=== PATIENT | female | born 1945 | race Caucasian/White ===

== ENCOUNTER → 2023-11-15 09:18 | Outpatient (REF) | payer MEDICARE, BC, SELFPAY ==
[2023-11-15 12:07] LABS: HDL Cholesterol 52 mg/dl; LDL Cholesterol, Calculated 155 mg/dl; Total Cholesterol 240 mg/dl (50-199); Triglyceride 166 mg/dl (10-149); Very Low Density Lipoprotein 33 mg/dl (0-30)
== END ==
LOC: HWLAB 09:18
PROVIDERS: ATTENDING PHYSICIAN Internal Medicine Cardiovascular Disease; FAMILY PHYSICIAN Emergency Medicine
DX: I25.10 Atherosclerotic heart disease of native coronary artery without angina pectoris (principal); E78.2 Mixed hyperlipidemia
CPT/HCPCS: 36415; 80061

== ENCOUNTER → 2024-01-01 09:13 | Outpatient (REF) | payer MEDICARE, BC, SELFPAY ==
[2024-01-01 12:31] LABS: % Basophils 1.1 % (0-2); % Immature Granulocytes 0.1 % (0-0.5); % Lymphocytes 31.5 % (20.5-51.1); % Monocytes 8.2 % (1.7-9.3); % Neutrophils 57.1 % (42.2-75.2); Absolute Basophils 0.1 10^3/uL (0-0.2); Absolute Eosinophils 0.1 10^3/uL (0-0.7); Absolute Lymphocytes 2.2 10^3/uL (1.2-3.4); Absolute Monocytes 0.6 10^3/uL (0.1-0.6); Hematocrit 40.4 % (37.0-47.0); Hemoglobin 13.1 g/dL (12.0-16.0); Mean Corp Hgb Conc. 32.4 g/dL (33.0-37.0); Mean Corpuscular Hgb 27.7 pg (27.0-31.0); Mean Corpuscular Volume 85.4 fL (81.0-99.0); Mean Platelet Volume 9.7 fL (7.4-10.4); Nucleated Red Blood Cells % 0 %; Platelet Count 288 10^3/uL (130-400); Red Blood Cell Count 4.73 10^6/uL (4.20-5.40); Red Cell Dist. Width 14.4 % (11.5-14.5)
[2024-01-01 13:29] LABS: ALT (SGPT) 35 U/L (0-35); AST (SGOT) 32 U/L (14-36); Albumin 4.2 g/dl (3.5-5.0); Alkaline Phosphatase 104 U/L (38-126); Blood Urea Nitrogen 13 mg/dl (7-17); Calcium 9.1 mg/dl (8.4-10.2); Carbon Dioxide 27 mmol/L (22-30); Chloride 105 mmol/L (98-107); Glucose 113 mg/dl (70-99); Potassium 4.4 mmol/L (3.5-5.1); Sodium 136 mmol/L (135-145); Total Bilirubin 0.6 mg/dl (0.2-1.3); eGFR > 60.00
[2024-01-01 13:54] LABS: TSH Reflex To Free T4 3.26 uIU/ml (0.47-4.68)
[2024-01-01 13:56] LABS: Glycohemoglobin (HgbA1c) 6.4 % (4.0-5.6)
== END ==
LOC: HWLAB 09:13
PROVIDERS: ATTENDING PHYSICIAN Emergency Medicine
DX: G47.33 Obstructive sleep apnea (adult) (pediatric) (principal); E11.69 Type 2 diabetes mellitus with other specified complication; E66.01 Morbid (severe) obesity due to excess calories; E78.2 Mixed hyperlipidemia; K76.0 Fatty (change of) liver, not elsewhere classified
CPT/HCPCS: 36415; 80053; 83036; 84443; 85025

== ENCOUNTER 2024-01-10 20:33 | Inpatient (IN) | payer MEDICARE, BC, SELFPAY ==
[2024-01-10 16:48] VITALS: BP 160/129
[2024-01-10 17:50] VITALS: BP 154/85
[2024-01-10 17:59] VITALS: BMI 55.1
[2024-01-10 18:13] LABS: % Basophils 0.7 % (0-2); % Eosinophils 0.6 % (0-6); % Immature Granulocytes 0.3 % (0-0.5); % Lymphocytes 19.2 % (20.5-51.1); % Monocytes 6.5 % (1.7-9.3); % Neutrophils 72.7 % (42.2-75.2); Absolute Basophils 0.1 10^3/uL (0-0.2); Absolute Eosinophils 0.1 10^3/uL (0-0.7); Absolute Monocytes 0.7 10^3/uL (0.1-0.6); Absolute Neutrophils 7.6 10^3/uL (1.4-6.5); Hemoglobin 13.6 g/dL (12.0-16.0); Mean Corp Hgb Conc. 32.4 g/dL (33.0-37.0); Mean Corpuscular Hgb 27.8 pg (27.0-31.0); Mean Corpuscular Volume 85.7 fL (81.0-99.0); Nucleated Red Blood Cells % 0 %; Platelet Count 307 10^3/uL (130-400); White Blood Cell Count 10.4 10^3/uL (4.8-10.8)
[2024-01-10 18:24] LABS: Lactic Acid 2.4 mmol/L (0.7-2.0)
[2024-01-10 18:26] LABS: ALT (SGPT) 31 U/L (0-35); AST (SGOT) 27 U/L (14-36); Albumin 4.5 g/dl (3.5-5.0); Alkaline Phosphatase 111 U/L (38-126); Blood Urea Nitrogen 11 mg/dl (7-17); Calcium 9.7 mg/dl (8.4-10.2); Carbon Dioxide 27 mmol/L (22-30); Chloride 100 mmol/L (98-107); Estimated Creatinine Clearance 75 ml/min; Glucose 154 mg/dl (70-99); Potassium 4.1 mmol/L (3.5-5.1); Sodium 137 mmol/L (135-145); Total Bilirubin 0.4 mg/dl (0.2-1.3); Total Protein 7.4 g/dl (6.3-8.2); eGFR > 60.00
--- NOTE | 2024-01-10 18:34 | ED.GENMED ---
History of Present Illness
General
Chief Complaint: Abdominal Pain
Source: patient
Exam Limitations: none
Time Seen by Provider: 01/10/24 18:27
Nursing documentation reviewed up to this point in time: agreed with
Travel History
Have you had any contact with someone who has COVID-19?: No
Do you have any symptoms of coronavirus? Fever > 100 degrees, chills, cough, shortness of breath, sore throat, loss of taste or smell, muscle aches, or headache?: No
History of Present Illness
History of Present Illness:
This patient presents to ED secondary to intermittent nonbloody diarrhea for the past 10 days along with left-sided abdominal pain with nausea sensation over the past 3 days. Patient had an outpatient CT abdomen pelvis done today which revealed
perforated diverticulum. Abdominal pain described as sharp, left-sided, without any alleviating or exacerbating factors. Patient denies fever. Denies vomiting. Denies previous history of similar symptoms.
Past History
Past History
ED Past Medical History: HTN, NIDDM and Other (endometrial cancer)
ED Past Surgical History: Other (hysterectomy)
Social History
Tobacco: Non-smoker
Alcohol: Occasional
Drug: None
Personal:
Living: with family
Employment: Employed
Review of Systems
Review of Systems
Allergies reviewed?: Yes
All Other Systems: ROS reviewed and negative except as documented in HPI and ROS
Constitutional: Denies fever
EENT: Reports no symptoms
Respiratory: Reports no symptoms
ABD/GI: Reports abdominal pain, nausea and diarrhea; Denies vomiting
: Reports no symptoms
Musculoskeletal: Reports no symptoms
Skin: Reports no symptoms
Neurological: Reports no symptoms
Phy Exam
Physical Exam
Physical Exam:
Physical Exam
General: mild painful distress, not acutely ill. afebrile
Head: nc/at. eomi
Neck: supple. no meningeal signs.
Heart: tachycardic, no murmur. equal radial pulses.
Lungs: no acute respiratory distress. clear bilaterally
Abdomen: normal bowel sounds. mild LLQ tenderness to palpation, without rebound/guarding.
Neuro: alert and oriented. no focal neurological deficits
Skin: no rash
Psychiatric: well kept. interactive and cooperative
Extremities: no edema. no calf tenderness.
Course
Orders/Labs/Results
Orders:
Orders
01/10/24 Dinner
NPO
Allow oral meds: Yes
Allow clear liquids: No
NPO with Ice Chips: No
01/10/24 18:01
Electrocardiogram (*1) Urgent
Reason for Study: Tachycardia
EKG- Treatment ONCE
01/10/24 18:03
CMP [Comprehensive Metabolic Panel] Urgent
Complete Blood Count/With Diff Urgent
Lactate Level [Lactic Acid] Urgent
Blood Culture Q30M
LORA Source: Blood/Venous
Specimen Description:
01/10/24 18:38
Piperacillin/Tazo 3.375 Gram [Zosyn] 3.375 gram in 50 ml IV NOW
01/10/24 18:39
0.9% Sodium Chloride 1000 ml [Nss] 1,000 ml IV BOLUS
Ondansetron Injectable [Zofran] 4 mg IV NOW STA
01/10/24 19:45
Admit/Transfer Patient As Directed
Co-Sign Provider:
Level of Care: Inpatient admission
Assign to:: Medical/Surgical
Physician / Group: malik
Diagnosis: perforated diverticulitis
Reason for Hospitalization: perforated diverticulitis
Expected length of stay greater than two midnights?: Yes
ELOS- Estimated Length of Stay in days: 2
I certify the patient meets the requirements for IP care: Yes
Code Status As Directed
Resuscitation Status: Full Code
01/10/24 21:41
0.9% Sodium Chloride 1000 ml [Nss] 1,000 ml IV 100 mls/hr
Albuterol [ProAIR HFA INHALER] 2 puff INH R Q4HPRN PRN
Dextrose 50%-Water [Dextrose 50% Syringe] 12.5 grams IV [id number] PRN
Glucagon [GlucaGen] 1 mg IM PRN PRN
Guaifenesin [Mucinex] 600 mg PO Q48H
HYDROmorphone [Dilaudid] 0.5 mg IV Q4HPRN PRN
Losartan [Cozaar] 50 mg PO BID
Ondansetron Injectable [Zofran] 4 mg IV Q6HPRN PRN
Polyethylene Glycol Powder [Miralax] 17 grams PO DAILYPRN PRN
01/10/24 21:41
ColoRectal Surgery Consult Routine
Consulting Provider: Edward Bender
Was physician already notified: Yes
Activity As Directed
Activity Level: As Tolerated
Bedside Glucose Monitoring As Directed
Frequency: AC&HS
Comment: Change to q6h if pt on TPN, tube feeding or not eating
Pneumatic Compression Sleeves As Directed
Type: Knee high
Vital Signs As Directed
Frequency: Per unit guidelines
DX Deep Vein Thrombosis Video Routine
01/10/24 22:00
Famotidine [Pepcid] 40 mg PO HS
01/10/24 22:03
Blood Culture Q30M
LORA Source: Blood/Venous
Specimen Description:
01/11/24 00:00
Piperacillin/Tazo 3.375 Gram [Zosyn] 3.375 gram in 50 ml IV Q6H
01/11/24 06:00
Complete Blood Count/With Diff IN AM
Comprehensive Metabolic Panel IN AM
01/11/24 07:30
Insulin Aspart Corrective Low [Novolog Flexpen-Low Resistance] See Protocol SC AC
01/11/24 08:00
Calcium Carbonate/Vitamin D3 [Oscal 500 + D] 500 mg PO DAILY
Calcium Polycarbophil [Fibercon] 625 mg PO DAILY
Cholecalciferol (Vitamin D3) [VITAMIN D3 (cholecalciferol)] 10 mcg PO DAILY
Cholecalciferol (Vitamin D3) [VITAMIN D3 (cholecalciferol)] 25 mcg PO DAILY
Cyanocobalamin [Vitamin B-12] 500 mcg PO DAILY
Docusate Sodium [Colace] 100 mg PO DAILY
Lidocaine [Lidocaine 4% Patch] 1 patch TOPICAL DAILY
Metoprolol Xl [Toprol Xl] 50 mg PO DAILY
Multivitamin [Theragran] 1 tablet PO DAILY
Pyridoxine [Vitamin B-6] 100 mg PO MoWeFr@0800
Tolterodine Extended Release [Detrol LA] 4 mg PO DAILY
01/11/24 18:00
Pantoprazole [Protonix] 40 mg PO QPM
01/14/24 08:00
Ascorbic Acid [Vitamin C] 500 mg PO MoWe@0800
Abnormal Lab Results
01/10/24
18:03
MCHC 32.4 L g/dL
(33.0-37.0)
Absolute Neuts (auto) 7.6 H 10^3/uL
(1.4-6.5)
Absolute Monos (auto) 0.7 H 10^3/uL
(0.1-0.6)
Lymphocytes % 19.2 L %
(20.5-51.1)
Glucose 154 H mg/dl
(70-99)
Lactic Acid 2.4 H mmol/L
(0.7-2.0)
01/10/24 18:03
01/10/24 18:03
Vital Signs
Initial and Last Documented VS:
Initial Vital Signs
Temp Pulse Resp BP Pulse Ox
98.9 F 120 18 160/129 95
01/10/24 16:48 01/10/24 16:48 01/10/24 16:48 01/10/24 16:48 01/10/24 16:48
Last Documented Vital Signs
Temp Pulse Resp BP Pulse Ox
98.2 F 96 18 139/62 96
01/10/24 23:55 01/10/24 23:55 01/10/24 23:55 01/10/24 23:55 01/10/24 23:55
MDM/Problems Addressed
MDM/Problems Addressed:
CT report reviewed and discussed with Dr. Bender, on-call colorectal surgeon.
Patient given IV fluids and Zosyn. Patient will be admitted for further evaluation and treatment.
*Critical Care Note
Total Time (30-74mins, 75-104mins- exclusive of procedures): Not Applicable
ED Attending Note
-
Portions of this chart may have been created with voice recognition software.� Occasional wrong word or��sound alike� substitutions may have occurred due to the inherent limitations of voice recognition software.
Discharge Plan
Departure
Patient Disposition: Admit
Date of Disposition: 01/10/24
Time of Disposition: 19:21
Presentation/result/management discussed w/ accepting MD/DO: Hospitalist
Discharge Problem:
Diverticulitis of colon with perforation
Interventions
Interventions:
*Risk Screen - Suicide Last Done: 01/10/24 16:48
*General Assessment Last Done: 01/10/24 16:48
*Neglect/Abuse Screening Last Done: 01/10/24 16:48
ED- Fall Risk Assessment Last Done: 01/10/24 18:22
*ED COVID-19 Vaccine History Last Done: 01/10/24 16:48
*Nursing Disposition Last Done: 01/10/24 22:05
CM-Qvivza-Jawwxhgzpp Assessment Last Done: 01/10/24 18:22
Discharge Date and Time
Discharge Date/Time: 01/10/24 22:06
[2024-01-10] MEDS: ZOFRAN 4 MG IV ×2 (18:47→23:20)
[2024-01-10] MEDS: ZOSYN 50 IV ×2 (18:47→23:17)
[2024-01-10] MEDS: NSS 1000 IV ×2 (18:51→22:27)
--- NOTE | 2024-01-10 19:52 | HPS.HSE ---
Family Physician
-
Family Physician: Crystal Saunders MD
Chief Complaint
-
abdominal pain
History of Present Illness
78-year-old female past medical history of COPD, obstructive sleep apnea, hypertension, diabetes, hyperlipidemia, endometrial cancer, chronic lower extremity edema, GERD, overactive bladder, obesity, presenting with intermittent nonbloody diarrhea
for the past 14 days with left-sided abdominal pain with nausea and dry heaving over the past 3 days. She started taking Repatha injection 6 weeks ago and started having diarrhea after each injection. Around 2 weeks ago she started having
intermittent diarrhea. Diarrhea is described as watery continue mucus without blood.
Patient had outpatient CT scan abdomen pelvis today which showed perforated diverticulum. Abdominal pain described as sharp and left-sided without any relieving factors. Patient denies fevers.
Patient with chronic shortness of breath and no chest pain.
She does not smoke or drink alcohol.
Medical History
Past Medical History
Past Medical History: Reports Other ( COPD, obstructive sleep apnea, hypertension, diabetes, hyperlipidemia, endometrial cancer, chronic lower extremity edema, GERD, overactive bladder, obesity,)
Past Surgical History: Reports None
Social History
Tobacco: Non-smoker
Alcohol: None
Drug: None
Family History
Family History: Not pertinent
Allergies / Home Medications
Allergies reflects when Allergies were last updated in [facility].
Home Medications with original date entered in [facility]
Allergy/Medication List:
Allergies
Allergy/AdvReac Type Severity Reaction Status Date / Time
acetaminophen [From Tylenol] Allergy Unknown Verified 12/31/22 19:18
aspartame Allergy Unknown Verified 12/31/22 19:18
aspirin Allergy gi Verified 12/31/22 19:18
discomfort
betamethasone dipropionate Allergy Rash Verified 12/31/22 19:18
[From Lotrisone]
cefuroxime Allergy Itching Verified 12/31/22 19:18
celecoxib Allergy Nausea / Verified 12/31/22 19:18
Vomiting
ciprofloxacin Allergy Nausea / Verified 12/31/22 19:18
Vomiting
clotrimazole [From Lotrisone] Allergy Rash Verified 12/31/22 19:18
doxycycline Allergy Unknown Verified 12/31/22 19:18
duloxetine [From Cymbalta] Allergy Unknown Verified 12/31/22 19:18
fluconazole Allergy Unknown Verified 12/31/22 19:18
hydrocodone [From Vicodin] Allergy Unknown Verified 12/31/22 19:18
prednisone Allergy Unknown Verified 12/31/22 19:18
rofecoxib [From Vioxx] Allergy tinnitus Verified 12/31/22 19:18
Adojwro-SUN-WqZ Reductase Allergy muscle Verified 12/31/22 19:18
Inhibitor spasms
[Qewbfyo-Cjg-Hrk Reductase
Inhibitor]
sulfamethoxazole Allergy Unknown Verified 12/31/22 19:18
[From Bactrim]
trimethoprim [From Bactrim] Allergy Unknown Verified 12/31/22 19:18
ANESTHESIA MEDICATIONS Allergy Unknown Uncoded 12/31/22 19:18
Home Medications
alpha lipoic acid 100 mg capsule 200 mg PO MOTH Supplement 10/13/13
fluticasone propionate 50 mcg/actuation nasal spray,suspension 2 spray intranasal DAILY PRN alleriges 10/13/13
ascorbic acid (vitamin C) 500 mg tablet (Vitamin C) 500 mg PO MOWE Supplement 12/31/22
calcium carbonate 500 mg-vitamin D3 5 mcg (200 unit) tablet (Calcium 500 + D) 1 tab PO DAILY Supplement 12/31/22
calcium polycarbophil 625 mg tablet (Fiber (calcium polycarbophil)) 625 mg PO DAILY Supplement 12/31/22
cholecalciferol (vitamin D3) 10 mcg (400 unit) tablet (Vitamin D3) 10 mcg PO DAILY take with 25mcg 12/31/22
cholecalciferol (vitamin D3) 25 mcg (1,000 unit) tablet (Vitamin D3) 25 mcg PO DAILY take with 25mcg 12/31/22
cyanocobalamin (vitamin B-12) 500 mcg tablet (Vitamin B-12) 500 mcg PO DAILY Supplement 12/31/22
docusate sodium 100 mg capsule (Col-Rite) 100 mg PO DAILY Constipation 12/31/22
lidocaine 4 % topical patch 1 patch topical DAILY middle lower back 12/31/22
metoprolol succinate 50 mg tablet,extended release 24 hr (Toprol XL) 50 mg PO DAILY Blood pressure 12/31/22
omega-3 acid ethyl esters 1 gram capsule (Lovaza) 1 cap PO DAILY Supplement 12/31/22
omeprazole 20 mg capsule,delayed release 20 mg PO QPM Gastrointestinal issue 12/31/22
pyridoxine (vitamin B6) 100 mg tablet (Vitamin B-6) 100 mg PO MOWEFR Supplement 12/31/22
vibegron 75 mg tablet (Gemtesa) 75 mg PO DAILY Urinary issue 12/31/22
coQ10 (ubiquinol) 100 mg capsule 100 mg PO DAILY Supplement 01/01/23
therapeutic multivitamin 1 tab PO DAILY Supplement 01/01/23
albuterol sulfate 90 mcg/actuation aerosol inhaler 2 puff inhalation R Q4HPRN PRN sob #6.7 grams 01/06/23
famotidine 40 mg tablet 40 mg PO HS #30 tabs 01/06/23
losartan 50 mg tablet 50 mg PO BID #60 tabs 01/06/23
Reclast 1 dose IV [id number] 01/10/24
biotin 10,000 mcg chewable tablet (Hair, Skin and Nails (biotin)) 10,000 mcg PO DAILY 01/10/24
guaifenesin 600 mg tablet, extended release 12 hr (Mucinex) 600 mg PO Q48H@2000 01/10/24
polyethylene glycol 3350 17 gram oral powder packet 17 g PO DAILYPRN PRN constipation 01/10/24
Review of Systems
-
History Source: Patient
A 12 point ROS was completed and negative except as noted: Yes
Constitutional: Reports No Symptoms
EENT: Reports No Symptoms
Respiratory: Reports No Symptoms
Cardiac: Reports No Symptoms
Abdomen/GI: Reports See HPI
: Reports No Symptoms
Musculoskeletal: Reports No Symptoms
Skin: Reports No Symptoms
Neurological: Reports No Symptoms
Endocrine: Reports No Symptoms
Hematologic/Lymphatic: Reports No Symptoms
Psych: Reports No Symptoms
Physical Exam
Vital Signs
Vital Signs
Temp Pulse Resp BP Pulse Ox
98.9 F 112 17 154/85 95
01/10/24 16:48 01/10/24 18:15 01/10/24 18:15 01/10/24 17:50 01/10/24 18:22
Physical Exam
General: Well Developed, Well Nourished and No Apparent Distress
HEENT: NormoCephalic, Moist mucous membranes and Atraumatic
Respiratory: Clear
Cardiac: S1/S2 and Regular Rhythm; No Murmur or Rub
GI: Soft, Non Distended, Normal Bowel Sounds and Tender (LLQ ); No Organomegaly
Rectal: Deferred by Provider
Musculoskeletal: No Clubbing, No Cyanosis and No Edema
Skin: No Rash
Neuro: Nonfocal/grossly intact
Laboratory Results
-
01/10/24 18:03
01/10/24 18:03
Laboratory Results
Lactic Acid 2.4 mmol/L (0.7-2.0) H 01/10/24 18:03
Total Bilirubin 0.4 mg/dl (0.2-1.3) 01/10/24 18:03
AST 27 U/L (14-36) 01/10/24 18:03
ALT 31 U/L (0-35) 01/10/24 18:03
Alkaline Phosphatase 111 U/L (38-126) 01/10/24 18:03
Data Reviewed
-
Lab Data: Labs Reviewed by me
Old Records: Reviewed
Impression/Plan
-
IMPRESSION:
PLAN:
# Perforated diverticulitis
-CT abdomen shows free intraperitoneal air consistent with focal area of perforated diverticulitis
-N.p.o.
-IV fluids
-Check blood cultures
-Zosyn
-Colorectal surgery to evaluate
COPD
-Continue inhalers
Obstructive sleep apnea
Essential hypertension
-Continue losartan, metoprolol
Type 2 diabetes
-Insulin sliding scale
Hyperlipidemia
-on reclast
History of endometrial cancer
Chronic lower extremity edema
GERD
-Continue famotidine, omeprazole
Overactive bladder
-Continue Gemtesa
Obesity
Constipation
-Continue bowel regimen
Full code
DVT prophylaxis�SCDs
N.p.o.
--- NOTE | 2024-01-10 20:21 | CON.CRS ---
Consultation
-
Performing Provider: Edward Bender MD
Reason for Consultation: abdominal pain
Medical History
-
History of Present Illness:
78-year-old female with PMH of endometrial cancer (s/p hysterectomy 2008), COPD, HTN, HLD, diabetes (controlled with diet), MINOR (on CPAP) OAB, GERD who presents with 3 to 4 days of mild intermittent left-sided abdominal pain. She states that she
started a new medication several weeks ago for her HLD called Repatha. She has been getting diarrhea as a side effect with each injection. Over the last 1 to 2 weeks the diarrhea has gotten worse. 1 week ago, she did have an episode of dry
heaving, but none since. 3 to 4 days ago, she started having left-sided abdominal pain that was intermittent. The pain ranges from a 3-5 out of 10. Sometimes the pain goes away completely, but at its worst was a 9 out of 10 when she was having a
BM. She was also having bilateral lower back pain and states that she has history of spinal stenosis. She denies any fevers or chest pain. Denies any urinary symptoms (has urinary incontinence at baseline). She chronically has SOB. She has been
mildly nauseous since the CT scan, but denies nausea prior. Her last colonoscopy was before 2014. She does not remember the results, but believes she was told to repeat it in 10 years.
In the ED, she was afebrile, her heart rate was in the 110s to 120s and hypertensive. Her WBC was 10.4, lactate 2.4, and creatinine 0.9. A CT scan was done which was read as concerning for perforated diverticulitis. However, the images were
reviewed with Dr. 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 There is no associated stranding or free fluid.
Past Medical History
Past Medical History: Other (per HPI)
Past Surgical History: Other (Hysterectomy 2008, temporal artery biopsy 2018, cataract surgery, mouth biopsy)
Social History
Tobacco: Non-Smoker
Alcohol: None
Drug: None
Personal:
Living: With Family
Family History
Family History: Reviewed & Not Pertinent
Allergies / Home Medications
Allergy/AdvReac Type Severity Reaction Status Date / Time
acetaminophen [From Tylenol] Allergy Unknown Verified 12/31/22 19:18
aspartame Allergy Unknown Verified 12/31/22 19:18
aspirin Allergy gi Verified 12/31/22 19:18
discomfort
betamethasone dipropionate Allergy Rash Verified 12/31/22 19:18
[From Lotrisone]
cefuroxime Allergy Itching Verified 12/31/22 19:18
celecoxib Allergy Nausea / Verified 12/31/22 19:18
Vomiting
ciprofloxacin Allergy Nausea / Verified 12/31/22 19:18
Vomiting
clotrimazole [From Lotrisone] Allergy Rash Verified 12/31/22 19:18
doxycycline Allergy Unknown Verified 12/31/22 19:18
duloxetine [From Cymbalta] Allergy Unknown Verified 12/31/22 19:18
fluconazole Allergy Unknown Verified 12/31/22 19:18
hydrocodone [From Vicodin] Allergy Unknown Verified 12/31/22 19:18
prednisone Allergy Unknown Verified 12/31/22 19:18
rofecoxib [From Vioxx] Allergy tinnitus Verified 12/31/22 19:18
Cpenmxm-CIE-EqM Reductase Allergy muscle Verified 12/31/22 19:18
Inhibitor spasms
[Cghfjsw-Shv-Myl Reductase
Inhibitor]
sulfamethoxazole Allergy Unknown Verified 12/31/22 19:18
[From Bactrim]
trimethoprim [From Bactrim] Allergy Unknown Verified 12/31/22 19:18
ANESTHESIA MEDICATIONS Allergy Unknown Uncoded 12/31/22 19:18
�Medication �Instructions �Recorded �Confirmed �Type
alpha lipoic acid 100 mg capsule 200 mg PO MOTH Supplement 10/13/13 01/10/24 History
fluticasone propionate 50 2 spray intranasal DAILY PRN 10/13/13 01/10/24 History
mcg/actuation nasal alleriges
spray,suspension
ascorbic acid (vitamin C) 500 mg 500 mg PO MOWE Supplement 12/31/22 01/10/24 History
tablet (Vitamin C)
calcium carbonate 500 mg-vitamin 1 tab PO DAILY Supplement 12/31/22 01/10/24 History
D3 5 mcg (200 unit) tablet
(Calcium 500 + D)
calcium polycarbophil 625 mg 625 mg PO DAILY Supplement 12/31/22 01/10/24 History
tablet (Fiber (calcium
polycarbophil))
cholecalciferol (vitamin D3) 10 10 mcg PO DAILY take with 25mcg 12/31/22 01/10/24 History
mcg (400 unit) tablet (Vitamin D3)
cholecalciferol (vitamin D3) 25 25 mcg PO DAILY take with 25mcg 12/31/22 01/10/24 History
mcg (1,000 unit) tablet (Vitamin
D3)
cyanocobalamin (vitamin B-12) 500 500 mcg PO DAILY Supplement 12/31/22 01/10/24 History
mcg tablet (Vitamin B-12)
docusate sodium 100 mg capsule 100 mg PO DAILY Constipation 12/31/22 01/10/24 History
(Col-Rite)
lidocaine 4 % topical patch 1 patch topical DAILY middle lower 12/31/22 01/10/24 History
back
metoprolol succinate 50 mg 50 mg PO DAILY Blood pressure 12/31/22 01/10/24 History
tablet,extended release 24 hr
(Toprol XL)
omega-3 acid ethyl esters 1 gram 1 cap PO DAILY Supplement 12/31/22 01/10/24 History
capsule (Lovaza)
omeprazole 20 mg capsule,delayed 20 mg PO QPM Gastrointestinal issue 12/31/22 01/10/24 History
release
pyridoxine (vitamin B6) 100 mg 100 mg PO MOWEFR Supplement 12/31/22 01/10/24 History
tablet (Vitamin B-6)
vibegron 75 mg tablet (Gemtesa) 75 mg PO DAILY Urinary issue 12/31/22 01/10/24 History
coQ10 (ubiquinol) 100 mg capsule 100 mg PO DAILY Supplement 01/01/23 01/10/24 History
therapeutic multivitamin 1 tab PO DAILY Supplement 01/01/23 01/10/24 History
albuterol sulfate 90 mcg/actuation 2 puff inhalation R Q4HPRN PRN sob 01/06/23 01/10/24 Rx
aerosol inhaler #6.7 grams
famotidine 40 mg tablet 40 mg PO HS #30 tabs 01/06/23 01/10/24 Rx
losartan 50 mg tablet 50 mg PO BID #60 tabs 01/06/23 01/10/24 Rx
Reclast 1 dose IV [id number] 01/10/24 01/10/24 History
biotin 10,000 mcg chewable tablet 10,000 mcg PO DAILY 01/10/24 01/10/24 History
(Hair, Skin and Nails (biotin))
guaifenesin 600 mg tablet, 600 mg PO Q48H@199901/10/24 01/10/24 History
extended release 12 hr (Mucinex)
polyethylene glycol 3350 17 gram 17 g PO DAILYPRN PRN constipation 01/10/24 01/10/24 History
oral powder packet
Review of Systems
-
All other systems: Negative unless noted
A 10 point review of systems was completed, and was negative except as per HPI.
Physical Exam
Vital Signs
Temp 98.9 F 01/10/24 16:48
Pulse 112 01/10/24 18:15
Resp Rate 17 01/10/24 18:15
Blood pressure 154/85 01/10/24 17:50
SaO2 95 01/10/24 18:22
01/09/24 01/10/24 01/11/24
06:59 06:59 06:59
Actual Weight 145.4 kg
Body Mass Index (BMI) 55.1
Lab Results / Allergies
01/10/24 18:03
01/10/24 18:03
WBC 10.4 10^3/uL (4.8-10.8) 01/10/24 18:03
Hgb 13.6 g/dL (12.0-16.0) 01/10/24 18:03
Hct 42.0 % (37.0-47.0) 01/10/24 18:03
Plt Count 307 10^3/uL (130-400) 01/10/24 18:03
Abs Immat Gran (auto) 0.0 10^3/uL (0-0.05) 01/10/24 18:03
Neutrophils % 72.7 % (42.2-75.2) 01/10/24 18:03
Allergy/AdvReac Type Severity Reaction Status Date / Time
acetaminophen [From Tylenol] Allergy Unknown Verified 12/31/22 19:18
aspartame Allergy Unknown Verified 12/31/22 19:18
aspirin Allergy gi Verified 12/31/22 19:18
discomfort
betamethasone dipropionate Allergy Rash Verified 12/31/22 19:18
[From Lotrisone]
cefuroxime Allergy Itching Verified 12/31/22 19:18
celecoxib Allergy Nausea / Verified 12/31/22 19:18
Vomiting
ciprofloxacin Allergy Nausea / Verified 12/31/22 19:18
Vomiting
clotrimazole [From Lotrisone] Allergy Rash Verified 12/31/22 19:18
doxycycline Allergy Unknown Verified 12/31/22 19:18
duloxetine [From Cymbalta] Allergy Unknown Verified 12/31/22 19:18
fluconazole Allergy Unknown Verified 12/31/22 19:18
hydrocodone [From Vicodin] Allergy Unknown Verified 12/31/22 19:18
prednisone Allergy Unknown Verified 12/31/22 19:18
rofecoxib [From Vioxx] Allergy tinnitus Verified 12/31/22 19:18
Bqxyccn-FXW-OpC Reductase Allergy muscle Verified 12/31/22 19:18
Inhibitor spasms
[[place]-Rhq-Zpd Reductase
Inhibitor]
sulfamethoxazole Allergy Unknown Verified 12/31/22 19:18
[From Bactrim]
trimethoprim [From Bactrim] Allergy Unknown Verified 12/31/22 19:18
ANESTHESIA MEDICATIONS Allergy Unknown Uncoded 12/31/22 19:18
Physical Exam
General: Well Developed, No Apparent Distress and Good Appetite
HEENT: Normocephalic and Atraumatic
Respiratory: Non Labored Respirations
GI: Soft, Non Distended and Tender (Minimally to mildly tender in the left epigastric region (states the tenderness is a 3 out of 10 with palpation, 0 out of 10 without palpation), no tenderness elsewhere, no rebound or guarding)
Skin: Warm and Dry
Neuro: Awake, AO x 3 and Nonfocal/Grossly Intact
Data Reviewed
-
CT Scan: Image Personally Visualized and interpreted, Discussed with Physician (Dr. Javed), Discussed with Patient and Discussed with Family
Labs: Labs Reviewed by me, Discussed with Patient and Discussed with Family
Assessment / Plan
-
78-year-old female with PMH of endometrial CA (s/p hysterectomy), COPD (chronically short of breath), HTN, HLD, diabetes (controlled with diet), MINOR (on CPAP) OAB, GERD who presents with 3 to 4 days of mild intermittent left-sided abdominal pain in
setting of 6 weeks of diarrhea a/w new medication, repatha. Her last colonoscopy was before 2014. She does not remember the results, but believes she was told to repeat it in 10 years. In the ED, she was afebrile, her heart rate was in the 110s to
120s and hypertensive. Her WBC was 10.4, lactate 2.4, and creatinine 0.9. A CT scan was done which was read as concerning for perforated diverticulitis. However, the images were reviewed with Dr. Brooks Javed, and he reported a few flecks of free
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 There is no associated stranding or free fluid.
�Initially, her CT scan was read as perforated diverticulitis with flecks of free air; however, after review with Dr. Javed, the patient has a mobile descending colon with a segment of colon with significant pneumatosis cystoides coli and free air
immediately adjacent to this with a few flecks of free air below the diaphragm; most likely, one of the air-filled colon cysts ruptured releasing some air intraperitoneally; the fact that there is no surrounding stranding or free fluid would also
support this diagnosis; furthermore, the patient's abdominal pain is minimal and localized to this immediate area without evidence of peritonitis; her heart rate is elevated, but admits to having poor p.o. intake for the last 3 to 4 days and likely
dehydrated
� No acute surgical intervention currently indicated; with the constellation of findings, I would recommend nonoperative management with n.p.o., IV fluids and IV antibiotics; I explained the risks and benefits with nonoperative management including
worsening of her clinical condition with progression of intra-abdominal infection and possible sepsis requiring emergency surgery; risks of proceeding with surgery at this time include needing a laparotomy incision and high likelihood of needing an
ostomy; I explained to the patient that we would monitor her clinical course closely and if she worsens, would reconsider operative intervention; this was discussed with the patient, and the patient's spouse; they were both in agreement and all
questions were answered
� Recommend n.p.o. with IVF resuscitation; okay for p.o. meds
� Pain control with Tylenol and Toradol
� Okay for DVT PPx
� Recommend IV zosyn
- Admit to hospitalist for comorbidities
[2024-01-10 20:26] VITALS: BP 151/88
[2024-01-10 21:00] VITALS: BP 174/90
[2024-01-10 21:53] VITALS: BP 173/72; BMI 54.5
--- NOTE | 2024-01-10 21:53 | PTCARENOTE ---
Patient arrived from ED via stretcher. Patient ambulated into the room with her walker. AAOx3, VSS. BP elevated. Patient oriented to the room. Call brand is within reach.
[2024-01-10 22:04] LABS: Glucose - Point of Care 123 mg/dl (70-99)
[2024-01-10] MEDS: PEPCID 40 MG PO (22:26)
[2024-01-10] MEDS: MUCINEX 600 MG PO (22:26)
[2024-01-10] MEDS: COZAAR 50 MG PO (22:46)
[2024-01-10 23:55] VITALS: BP 139/62
[2024-01-11 00:40] VITALS: BMI 54.5
[2024-01-11] MEDS: ZOSYN 50 IV ×4 (05:29→23:58)
[2024-01-11 08:20] LABS: Glucose - Point of Care 118 mg/dl (70-99)
[2024-01-11] MEDS: OSCAL 500 + D 500 MG PO (09:05)
[2024-01-11] MEDS: TOPROL XL 50 MG PO (09:06)
[2024-01-11] MEDS: COLACE 100 MG PO (09:06)
[2024-01-11] MEDS: VITAMIN B-12 500 MCG PO (09:07)
[2024-01-11 09:08] VITALS: BP 150/90
[2024-01-11] MEDS: FIBERCON 625 MG PO (09:08)
[2024-01-11] MEDS: VITAMIN D3 (cholecalciferol) 25 MCG PO (09:09)
[2024-01-11] MEDS: THERAGRAN 1 TABLET PO (09:09)
[2024-01-11] MEDS: COZAAR 50 MG PO ×2 (09:09→19:58)
[2024-01-11] MEDS: LIDOCAINE 4% PATCH 1 PATCH TOPICAL (09:09)
[2024-01-11] MEDS: VITAMIN D3 (cholecalciferol) 10 MCG PO (09:10)
[2024-01-11] MEDS: VITAMIN B-6 100 MG PO (09:14)
[2024-01-11] MEDS: NSS 1000 IV ×2 (09:16→23:58)
[2024-01-11] MEDS: ZOFRAN 4 MG IV (09:21)
[2024-01-11] MEDS: DILAUDID 0.5 MG IV (09:23)
[2024-01-11 09:58] LABS: % Basophils 0.8 % (0-2); % Eosinophils 0.9 % (0-6); % Immature Granulocytes 0.3 % (0-0.5); % Lymphocytes 16.6 % (20.5-51.1); % Neutrophils 74.4 % (42.2-75.2); Absolute Basophils 0.1 10^3/uL (0-0.2); Absolute Eosinophils 0.1 10^3/uL (0-0.7); Absolute Lymphocytes 1.2 10^3/uL (1.2-3.4); Absolute Monocytes 0.5 10^3/uL (0.1-0.6); Absolute Neutrophils 5.5 10^3/uL (1.4-6.5); Hematocrit 38.5 % (37.0-47.0); Hemoglobin 12.2 g/dL (12.0-16.0); Mean Corp Hgb Conc. 31.7 g/dL (33.0-37.0); Mean Corpuscular Hgb 27.4 pg (27.0-31.0); Mean Corpuscular Volume 86.3 fL (81.0-99.0); Nucleated Red Blood Cells % 0 %; Platelet Count 258 10^3/uL (130-400); Red Blood Cell Count 4.46 10^6/uL (4.20-5.40); Red Cell Dist. Width 14.3 % (11.5-14.5); White Blood Cell Count 7.4 10^3/uL (4.8-10.8)
[2024-01-11 11:00] LABS: ALT (SGPT) 25 U/L (0-35); AST (SGOT) 23 U/L (14-36); Albumin 3.9 g/dl (3.5-5.0); Alkaline Phosphatase 105 U/L (38-126); Blood Urea Nitrogen 9 mg/dl (7-17); Calcium 8.7 mg/dl (8.4-10.2); Carbon Dioxide 28 mmol/L (22-30); Chloride 102 mmol/L (98-107); Estimated Creatinine Clearance 67 ml/min; Glucose 121 mg/dl (70-99); Potassium 4.2 mmol/L (3.5-5.1); Sodium 137 mmol/L (135-145); Total Bilirubin 0.7 mg/dl (0.2-1.3); Total Protein 6.5 g/dl (6.3-8.2); eGFR 58.02
--- NOTE | 2024-01-11 11:37 | W.PN.HOSP.TC ---
Today's Communication/Plan
-
renew and decrease IVF rate
change zofran to compazine
Assessment / Plan
Assessment / Plan
pt is a 78 year old female
Perforated diverticulitis--CT abdomen shows free intraperitoneal air consistent with focal area of perforated diverticulitis--cont IVF/zosyn/pain control--apprec CRS--persistent n/v could be due to pain meds or abx or both--stop zofran and try
compazine
COPD-Continue inhalers
Obstructive sleep apnea
Essential hypertension-Continue losartan, metoprolol
Type 2 diabetes-Insulin sliding scale
Hyperlipidemia-on reclast
History of endometrial cancer
Chronic lower extremity edema
GERD-Continue famotidine, omeprazole
Overactive bladder-Continue Gemtesa
Obesity--affects all aspects of care
Constipation-Continue bowel regimen
Full code
DVT prophylaxis�SCDs
Anticipated Discharge: > 48 hours
Subjective/Interval History
-
Date of Service: January 11, 2024
pt c/o n/v
Objective Data
-
Labs:
Laboratory Results
01/11/24
09:39
WBC 7.4
Hgb 12.2
Hct 38.5
Plt Count 258
Sodium 137
Potassium 4.2
Chloride 102
Carbon Dioxide 28
BUN 9
Creatinine 1.0
Glucose 121 H
Calcium 8.7
Total Bilirubin 0.7
AST 23
ALT 25
Alkaline Phosphatase 105
Vital Signs:
max temp for 24 hours
01/10/24
16:48
Temp 98.9 F
Vital Signs
Temp Pulse Resp BP Pulse Ox
97.8 F 92 16 150/90 95
01/11/24 09:08 01/11/24 09:08 01/11/24 09:08 01/11/24 09:08 01/11/24 09:08
I&O
01/10/24 01/11/24 01/12/24
06:59 06:59 06:59
Intake Total 1300 / 1300
Balance 1300 / 1300
Review of Systems
-
All other systems: Reviewed and negative
Physical Exam
-
General: Well Developed, Well Nourished and No Apparent Distress
HEENT: Normocephalic and Atraumatic
Respiratory: Clear to Auscultation; Negative Wheezes or Rhonchi
Cardiac: Regular Rhythm and S1/S2; Negative Murmur
GI: Soft, Tender and Distended; Negative Normal Bowel Sounds (hypoactive)
Musculoskeletal: No Clubbing, No Cyanosis and No Edema
Neuro: Awake and Alert
[2024-01-11 11:54] LABS: Glucose - Point of Care 129 mg/dl (70-99)
[2024-01-11] MEDS: COMPAZINE 5 MG IV (11:58)
[2024-01-11 12:12] LABS: Lactic Acid 0.9 mmol/L (0.7-2.0)
--- NOTE | 2024-01-11 12:23 | W.PN.CRS1 ---
Today's Communication / Plan
-
abdominal xray
iv abx
npo
wound RN for stoma marking
Assessment/Plan
-
Assessment: 78yo female with descending colon and a focal area of perforated diverticulitis with possible pneumatosis cystoides coli
Plan:
1. Continue PO status today.
2. Vitals normal. WBC normal.
3. No plans for OR today. If worsens, she will need a colectomy with colostomy creation.
4. Wound RN for stoma marking.
5. Continue IV antibiotics.
6. Abdominal xray today.
Subjective Data
Subjective Data
Date of Service: January 11, 2024
Patient states she is having some pain. She feels nauseous at bedside.
Objective Data
-
Vital Signs
Temp Pulse Resp BP Pulse Ox
97.8 F 92 16 150/90 95
01/11/24 09:08 01/11/24 09:08 01/11/24 09:08 01/11/24 09:08 01/11/24 09:08
Intake & Output
01/10/24 01/11/24 01/12/24
06:59 06:59 06:59
Intake Total 1300 / 1300
Balance 1300 / 1300
Intake:
Oral fluids 0 / 0
IV fluids (Total) 1200 / 1200
IV piggybacks 100 / 100
Other:
Number of approximated MODERATE 2
amounts of urine
Lab Results
01/11/24 09:39
01/11/24 09:39
Physical Exam
-
General: No Acute Distress and AOx3
Abdomen: Soft, Non Distended and Tender (LLQ - tender)
Skin: Warm
--- NOTE | 2024-01-11 13:37 | WOUNDNOTE ---
[facility] RN NOTE: Patient visited for left sided stoma marking. Patients abdomen soft, obese and patient reports increased distension. Rectus muscle was identified and patients abdomen was inspected in lying and sitting position (patient could not
tolerate standing due to nausea). Care was taken to avoid creases and folds. Patient and family made aware that topography of abdomen may change after surgery and that surgeon will make final determination of stoma placement. Patient and family
state understanding and all questions answered. Will follow up with patient upon stoma creation. [facility] updated.
[2024-01-11] MEDS: NON-FORMULARY ITEM 1 UNIT PO (14:13)
[2024-01-11] MEDS: FIRST-MOUTHWASH BLM SUSPENSION 5 ML PO (14:14)
[2024-01-11 15:21] VITALS: BP 152/90
--- NOTE | 2024-01-11 18:00 | CM ---
met with patient and spouse at bedside.patient lives with her spouse in house with 1 step to enter,she sleeps in a lift chair in family room.she amb with a cane/walker and uses a wc or longer distances.her pcp is dr berman and she uses [facility] in [place].
patient has a history of smorbid obesity,copd/athma,sourav on cpap.she is adm with a perforated diverticulitis on iv zosyn,she has had [facility] vn in past and has been to [facility].Plan:patient may need vn vs short term rehab.hopefullly at
[facility].
[2024-01-11 18:22] LABS: Glucose - Point of Care 115 mg/dl (70-99)
[2024-01-11] MEDS: PROTONIX 40 MG PO (18:25)
[2024-01-11] MEDS: MUCINEX 600 MG PO (19:58)
[2024-01-11] MEDS: PEPCID 40 MG PO (19:58)
[2024-01-11 23:19] VITALS: BP 156/90
[2024-01-12 01:58] LABS: Glucose - Point of Care 111 mg/dl (70-99)
[2024-01-12] MEDS: ZOSYN 50 IV (05:27)
[2024-01-12 05:55] LABS: Glucose - Point of Care 105 mg/dl (70-99)
[2024-01-12 07:02] LABS: Hematocrit 36.1 % (37.0-47.0); Hemoglobin 11.6 g/dL (12.0-16.0); Mean Corp Hgb Conc. 32.1 g/dL (33.0-37.0); Mean Corpuscular Hgb 28.1 pg (27.0-31.0); Mean Corpuscular Volume 87.4 fL (81.0-99.0); Mean Platelet Volume 9.2 fL (7.4-10.4); Platelet Count 248 10^3/uL (130-400); Red Blood Cell Count 4.13 10^6/uL (4.20-5.40); Red Cell Dist. Width 14.4 % (11.5-14.5); White Blood Cell Count 6.8 10^3/uL (4.8-10.8)
[2024-01-12 07:24] LABS: ALT (SGPT) 30 U/L (0-35); AST (SGOT) 28 U/L (14-36); Albumin 3.6 g/dl (3.5-5.0); Alkaline Phosphatase 89 U/L (38-126); Blood Urea Nitrogen 9 mg/dl (7-17); Calcium 8.2 mg/dl (8.4-10.2); Carbon Dioxide 28 mmol/L (22-30); Chloride 106 mmol/L (98-107); Estimated Creatinine Clearance 67 ml/min; Glucose 106 mg/dl (70-99); Magnesium 2.4 mg/dl (1.6-2.3); Potassium 4.4 mmol/L (3.5-5.1); Sodium 137 mmol/L (135-145); Total Bilirubin 0.5 mg/dl (0.2-1.3); Total Protein 6.1 g/dl (6.3-8.2); eGFR 58.02
[2024-01-12 07:25] VITALS: BP 150/104
[2024-01-12] MEDS: COLACE PO (08:25)
[2024-01-12] MEDS: FIBERCON PO (08:26)
[2024-01-12 08:32] VITALS: BP 124/84
[2024-01-12] MEDS: TOPROL XL 50 MG PO (08:36)
[2024-01-12] MEDS: VITAMIN D3 (cholecalciferol) 10 MCG PO (08:36)
[2024-01-12] MEDS: LIDOCAINE 4% PATCH 1 PATCH TOPICAL (08:36)
[2024-01-12] MEDS: VITAMIN D3 (cholecalciferol) 25 MCG PO (08:37)
[2024-01-12] MEDS: COZAAR 50 MG PO ×2 (08:37→20:16)
[2024-01-12] MEDS: VITAMIN B-12 500 MCG PO (08:37)
[2024-01-12] MEDS: OSCAL 500 + D 500 MG PO (08:37)
[2024-01-12] MEDS: THERAGRAN 1 TABLET PO (08:37)
[2024-01-12] MEDS: NON-FORMULARY ITEM 1 UNIT PO (08:38)
--- NOTE | 2024-01-12 11:39 | W.PN.HOSP.TC ---
Today's Communication/Plan
-
stop IVF
clears
ambulate
Assessment / Plan
Assessment / Plan
pt is a 78 year old female
Perforated diverticulitis--CT abdomen shows free intraperitoneal air consistent with focal area of perforated diverticulitis--Xray with severe pneumatosis cystoides coli--stop IVF--cont zosyn/pain control--apprec CRS
COPD-Continue inhalers
Obstructive sleep apnea
Essential hypertension-Continue losartan, metoprolol
Type 2 diabetes-Insulin sliding scale
Hyperlipidemia-on reclast
History of endometrial cancer
Chronic lower extremity edema
GERD-Continue famotidine, omeprazole
Overactive bladder-Continue Gemtesa
Obesity--affects all aspects of care
Constipation-Continue bowel regimen
Full code
DVT prophylaxis�SCDs
Anticipated Discharge: 24 - 48 hours
Subjective/Interval History
-
Date of Service: January 12, 2024
pt feeling much improved today
Objective Data
-
Labs:
Laboratory Results
01/12/24
06:06
WBC 6.8
Hgb 11.6 L
Hct 36.1 L
Plt Count 248
Sodium 137
Potassium 4.4
Chloride 106
Carbon Dioxide 28
BUN 9
Creatinine 1.0
Glucose 106 H
Calcium 8.2 L
Total Bilirubin 0.5
AST 28
ALT 30
Alkaline Phosphatase 89
Vital Signs:
max temp for 24 hours
01/11/24
23:19
Temp 98.2 F
Vital Signs
Temp Pulse Resp BP Pulse Ox
98.3 F 98 20 124/84 96
01/12/24 07:25 01/12/24 07:25 01/12/24 07:25 01/12/24 08:32 01/12/24 07:25
I&O
01/11/24 01/12/24 01/13/24
06:59 06:59 06:59
Intake Total 1300 / 1300 350 / 350
Output Total 750 / 750
Balance 1300 / 1300 -400 / -400
Review of Systems
-
All other systems: Reviewed and negative
Physical Exam
-
General: Well Developed, Well Nourished and No Apparent Distress
HEENT: Normocephalic and Atraumatic
Respiratory: Clear to Auscultation; Negative Wheezes or Rhonchi
Cardiac: Regular Rhythm and S1/S2; Negative Murmur
GI: Soft, Nontender, Nondistended and Normal Bowel Sounds
Musculoskeletal: No Clubbing and No Cyanosis; Negative No Edema (all 4 ext)
Skin: Warm
Neuro: Awake
Psych: Calm
[2024-01-12 12:09] LABS: Glucose - Point of Care 96 mg/dl (70-99)
--- NOTE | 2024-01-12 12:18 | W.PN.GS2 ---
Today's Communication / Plan
-
`
Assessment / Plan
-
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 Presenting with initial acute onset abdominal pain and CT imaging also notable for adjacent free air.
On review of patient's prior CT of the chest from March 2023 she appears to have a modest amount of pneumatosis cystoides intestinalis of the same region but it has certainly progressed since this imaging to CT abdomen pelvis at this hospitalization.
Afebrile, vital signs are stable
No peritoneal signs on examination
White blood cell count 6.8, no acidosis and lactic acid normal yesterday.
Suspect one of the pneumatosis intestinalis cysts ruptured but colon mucosal lining still intact
Plan: No indications for urgent operative intervention -peritonitis, metabolic acidosis, lactic acidosis, portal venous gas on CT imaging
Okay for full liquid diet today.
It is generally recommended that symptomatic patients are treated with oral antibiotics, metronidazole 500 mg p.o. 3 times daily until clinical or radiographic resolution/up to 3 months - stop Zosyn
Hyperbaric oxygen therapy may help however this is not available at
Elemental diet is recommended for 2 weeks-will start with full liquids and supplements; dietary consult
At latter date patient should follow-up with colonoscopy
Will continue to follow
Subjective Data
-
Date of Service: January 12, 2024
Patient seen and examined.
Her abdominal pain on presentation has completely resolved.
Hungry, no nausea, no vomiting since dose of Dilaudid yesterday felt to initiate episode of emesis.
Passing flatus and has had bowel movement.
Objective Data
-
Intake and Output
01/11/24 01/12/24 01/13/24
06:59 06:59 06:59
Intake Total 1300 / 1300 350 / 350
Output Total 750 / 750
Balance 1300 / 1300 -400 / -400
Intake:
Oral fluids 0 / 0 0 / 0
IV fluids (Total) 1200 / 1200 300 / 300
IV piggybacks 100 / 100 50 / 50
Output:
Emesis 150 / 150
Urine, Voided 600 / 600
Other:
Number of approximated MODERATE 2 2
amounts of urine
Vital Signs
Temp Pulse Resp BP Pulse Ox
98.3 F 98 20 124/84 96
01/12/24 07:25 01/12/24 07:25 01/12/24 07:25 01/12/24 08:32 01/12/24 07:25
Lab Results
01/12/24 06:06
01/12/24 06:06
Calcium 8.2 mg/dl (8.4-10.2) L 01/12/24 06:06
Magnesium 2.4 mg/dl (1.6-2.3) H 01/12/24 06:06
Total Bilirubin 0.5 mg/dl (0.2-1.3) 01/12/24 06:06
AST 28 U/L (14-36) 01/12/24 06:06
ALT 30 U/L (0-35) 01/12/24 06:06
Alkaline Phosphatase 89 U/L (38-126) 01/12/24 06:06
Total Protein 6.1 g/dl (6.3-8.2) L 01/12/24 06:06
Albumin 3.6 g/dl (3.5-5.0) 01/12/24 06:06
Physical Exam
-
NAD AAOx3
ABD: Soft, obese, minimal tenderness on palpation epigastrium and left upper quadrant. No rebound rigidity or guarding
[2024-01-12] MEDS: ZOSYN IV (13:03)
[2024-01-12 15:15] VITALS: BP 145/87
[2024-01-12 16:31] LABS: Glucose - Point of Care 101 mg/dl (70-99)
[2024-01-12] MEDS: FLAGYL 500 MG PO ×2 (17:29→20:20)
[2024-01-12] MEDS: PROTONIX 40 MG PO (17:29)
[2024-01-12] MEDS: PEPCID 40 MG PO ×2 (20:15)
[2024-01-12 21:47] LABS: Glucose - Point of Care 91 mg/dl (70-99)
[2024-01-12 23:55] VITALS: BP 148/87
[2024-01-13 07:24] LABS: Glucose - Point of Care 94 mg/dl (70-99)
[2024-01-13 07:30] VITALS: BP 135/68
[2024-01-13 07:33] LABS: Hemoglobin 11.8 g/dL (12.0-16.0); Mean Corp Hgb Conc. 32.8 g/dL (33.0-37.0); Mean Corpuscular Hgb 27.8 pg (27.0-31.0); Mean Corpuscular Volume 84.9 fL (81.0-99.0); Mean Platelet Volume 9.1 fL (7.4-10.4); Platelet Count 237 10^3/uL (130-400); Red Blood Cell Count 4.24 10^6/uL (4.20-5.40); Red Cell Dist. Width 14.2 % (11.5-14.5); White Blood Cell Count 5.8 10^3/uL (4.8-10.8)
[2024-01-13 08:06] LABS: Blood Urea Nitrogen 8 mg/dl (7-17); Calcium 8.7 mg/dl (8.4-10.2); Carbon Dioxide 25 mmol/L (22-30); Chloride 105 mmol/L (98-107); Estimated Creatinine Clearance 75 ml/min; Glucose 92 mg/dl (70-99); Magnesium 2.5 mg/dl (1.6-2.3); Potassium 3.9 mmol/L (3.5-5.1); Sodium 137 mmol/L (135-145); eGFR > 60.00
[2024-01-13] MEDS: LIDOCAINE 4% PATCH 1 PATCH TOPICAL (09:05)
[2024-01-13] MEDS: TOPROL XL 50 MG PO (09:06)
[2024-01-13] MEDS: FIBERCON 625 MG PO (09:06)
[2024-01-13] MEDS: VITAMIN D3 (cholecalciferol) 10 MCG PO (09:07)
[2024-01-13] MEDS: VITAMIN B-12 500 MCG PO (09:07)
[2024-01-13] MEDS: OSCAL 500 + D 500 MG PO (09:07)
[2024-01-13] MEDS: THERAGRAN 1 TABLET PO (09:07)
[2024-01-13] MEDS: FLAGYL 500 MG PO ×3 (09:09→21:03)
[2024-01-13] MEDS: VITAMIN D3 (cholecalciferol) 25 MCG PO (09:10)
[2024-01-13] MEDS: COLACE 100 MG PO (09:10)
[2024-01-13] MEDS: NON-FORMULARY ITEM 1 UNIT PO (09:10)
[2024-01-13] MEDS: COZAAR 50 MG PO ×2 (09:33→21:03)
--- NOTE | 2024-01-13 11:33 | W.PN.GS2 ---
Addendum entered and electronically signed by Micah Deutsch MD 01/13/24 12:57:
Patient seen and examined with nurse practitioner. Agree with documented progress note.
Overall patient feeling well. Occasional twinges of abdominal discomfort but no pain. She has her appetite back and is hungry but is apprehensive to advance diet.
AFVSS
ABD: Soft, nondistended, obese, no significant tenderness on palpation
White blood cell count 5.8, electrolytes unremarkable
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 Suspected pneumatosis cyst rupture with resultant free air but no peritonitis, acidosis, portal venous gas, obstructive
symptoms or clinical signs of sepsis to warrant surgical intervention.
Continue metronidazole 500 p.o. 3 times daily until clinical/radiographic resolution or up to 3 months -consider outpatient radiographic imaging for surveillance of pneumatosis intestinalis
Elemental diet/full liquids for now -dietary consult placed yesterday for discussions with patient regarding elemental diet
Given diarrhea we will check stool studies as infectious etiology can lead to pneumatosis intestinalis
At later date patient should follow-up with colonoscopy which could either be with colorectal service who initially saw patient in consultation versus GI follow-up
Colorectal service will be back tomorrow to follow
Original Note:
Today's Communication / Plan
-
Stool studies
FLD
Assessment / Plan
-
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 Presenting with initial acute onset abdominal pain and CT imaging also notable for adjacent free air.
On review of patient's prior CT of the chest from March 2023 she appears to have a modest amount of pneumatosis cystoides intestinalis of the same region but it has certainly progressed since this imaging to CT abdomen pelvis at this hospitalization.
Afebrile, vital signs are stable
No peritoneal signs on examination
White blood cell count 5.8, no acidosis and lactic acid normal yesterday.
Suspect one of the pneumatosis intestinalis cysts ruptured but colon mucosal lining still intact
Continues to improve although with some diarrhea
Plan: No indications for urgent operative intervention -peritonitis, metabolic acidosis, lactic acidosis, portal venous gas on CT imaging
Continue FLD with suppl
It is generally recommended that symptomatic patients are treated with oral antibiotics, metronidazole 500 mg p.o. 3 times daily until clinical or radiographic resolution/up to 3 months
Hyperbaric oxygen therapy may help however this is not available at
Elemental diet is recommended for 2 weeks-will start with full liquids and supplements; dietary consult
At latter date patient should follow-up with colonoscopy
Will send stool studies
Subjective Data
-
Date of Service: January 13, 2024
Patient seen and examined at bedside with Dr. Deutsch. Continuing to feel better. C/O some intermittent twinges of pain to bilateral abdominal, quick to resolve. Some diarrhea after meals. Hesitant to try solid food.
Objective Data
-
Intake and Output
01/12/24 01/13/24 01/14/24
06:59 06:59 06:59
Intake Total 350 / 350 1360 / 1360
Output Total 750 / 750
Balance -400 / -400 1360 / 1360
Intake:
Oral fluids 0 / 0 960 / 960
IV fluids (Total) 300 / 300 400 / 400
IV piggybacks 50 / 50
Output:
Emesis 150 / 150
Urine, Voided 600 / 600
Other:
Number of approximated MODERATE 2 3
amounts of urine
Vital Signs
Temp Pulse Resp BP Pulse Ox
97.6 F 90 18 135/68 91
01/13/24 07:30 01/13/24 09:33 01/12/24 23:55 01/13/24 09:33 01/13/24 07:30
Lab Results
01/13/24 07:10
01/13/24 07:10
Calcium 8.7 mg/dl (8.4-10.2) 01/13/24 07:10
Magnesium 2.5 mg/dl (1.6-2.3) H 01/13/24 07:10
Total Bilirubin 0.5 mg/dl (0.2-1.3) 01/12/24 06:06
AST 28 U/L (14-36) 01/12/24 06:06
ALT 30 U/L (0-35) 01/12/24 06:06
Alkaline Phosphatase 89 U/L (38-126) 01/12/24 06:06
Total Protein 6.1 g/dl (6.3-8.2) L 01/12/24 06:06
Albumin 3.6 g/dl (3.5-5.0) 01/12/24 06:06
Physical Exam
-
NAD AAOx3
ABD: Soft, obese, NT. No rebound rigidity or guarding
[2024-01-13 11:46] LABS: Glucose - Point of Care 102 mg/dl (70-99)
[2024-01-13 12:26] VITALS: BP 135/87
--- NOTE | 2024-01-13 14:21 | W.PN.HOSP.TC ---
Today's Communication/Plan
-
advance diet
flagyl Q8H x 3 months
Assessment / Plan
Assessment / Plan
pt is a 78 year old female
Perforated pneumatosis cystoides coli--CT abdomen shows free intraperitoneal air consistent with focal area of perforation--Xray with severe pneumatosis cystoides coli--stop IVF--apprec CRS, changed zosyn to flagyl Q8H for 3 months--pain
control--advance diet
COPD-Continue inhalers
Obstructive sleep apnea
Essential hypertension-Continue losartan, metoprolol
Type 2 diabetes-Insulin sliding scale
Hyperlipidemia-on reclast
History of endometrial cancer
Chronic lower extremity edema
GERD-Continue famotidine, omeprazole
Overactive bladder-Continue Gemtesa
Obesity--affects all aspects of care
Constipation-Continue bowel regimen
Full code
DVT prophylaxis�SCDs
Anticipated Discharge: 24 - 48 hours
Subjective/Interval History
-
Date of Service: January 13, 2024
pt afraid to eat until she has a BM
Objective Data
-
Labs:
Laboratory Results
01/13/24
07:10
WBC 5.8
Hgb 11.8 L
Hct 36.0 L
Plt Count 237
Sodium 137
Potassium 3.9
Chloride 105
Carbon Dioxide 25
BUN 8
Creatinine 0.9
Glucose 92
Calcium 8.7
Vital Signs:
max temp for 24 hours
01/12/24
07:25
Temp 98.3 F
Vital Signs
Temp Pulse Resp BP Pulse Ox
97.7 F 90 18 135/87 97
01/13/24 12:26 01/13/24 12:26 01/13/24 12:26 01/13/24 12:26 01/13/24 12:26
I&O
01/12/24 01/13/24 01/14/24
06:59 06:59 06:59
Intake Total 350 / 350 1360 / 1360
Output Total 750 / 750
Balance -400 / -400 1360 / 1360
Review of Systems
-
All other systems: Reviewed and negative
Physical Exam
-
General: Well Developed, Well Nourished, No Apparent Distress and Morbidly Obese
HEENT: Normocephalic and Atraumatic
Respiratory: Clear to Auscultation; Negative Wheezes or Rhonchi
Cardiac: Regular Rhythm and S1/S2; Negative Murmur
GI: Soft, Nontender, Nondistended and Normal Bowel Sounds
Musculoskeletal: No Clubbing, No Cyanosis and No Edema
Neuro: Awake
[2024-01-13 15:15] VITALS: BP 157/96
[2024-01-13 16:40] LABS: Glucose - Point of Care 90 mg/dl (70-99)
[2024-01-13] MEDS: PROTONIX 40 MG PO (17:07)
[2024-01-13] MEDS: MUCINEX 600 MG PO (21:03)
[2024-01-13 21:12] LABS: Glucose - Point of Care 137 mg/dl (70-99)
[2024-01-13] MEDS: DESENEX/MITRAZOL/ZEASORB 1 APPLIC TOPICAL (23:27)
[2024-01-13 23:47] VITALS: BP 148/76
[2024-01-14 05:31] LABS: Hematocrit 36.6 % (37.0-47.0); Hemoglobin 11.8 g/dL (12.0-16.0); Mean Corp Hgb Conc. 32.2 g/dL (33.0-37.0); Mean Corpuscular Hgb 27.9 pg (27.0-31.0); Mean Corpuscular Volume 86.5 fL (81.0-99.0); Mean Platelet Volume 8.9 fL (7.4-10.4); Platelet Count 231 10^3/uL (130-400); Red Blood Cell Count 4.23 10^6/uL (4.20-5.40); Red Cell Dist. Width 14.1 % (11.5-14.5); White Blood Cell Count 7.5 10^3/uL (4.8-10.8)
[2024-01-14 05:56] LABS: Blood Urea Nitrogen 10 mg/dl (7-17); Carbon Dioxide 28 mmol/L (22-30); Chloride 102 mmol/L (98-107); Estimated Creatinine Clearance 67 ml/min; Glucose 107 mg/dl (70-99); Magnesium 2.5 mg/dl (1.6-2.3); Potassium 4.1 mmol/L (3.5-5.1); Sodium 137 mmol/L (135-145); eGFR 58.02
[2024-01-14 07:50] VITALS: BP 153/95
[2024-01-14 07:55] LABS: Glucose - Point of Care 102 mg/dl (70-99)
[2024-01-14] MEDS: VITAMIN D3 (cholecalciferol) 10 MCG PO (08:43)
[2024-01-14] MEDS: FIBERCON 625 MG PO (08:43)
[2024-01-14] MEDS: LIDOCAINE 4% PATCH 1 PATCH TOPICAL (08:43)
[2024-01-14] MEDS: TOPROL XL 50 MG PO (08:44)
[2024-01-14] MEDS: VITAMIN B-12 500 MCG PO (08:44)
[2024-01-14] MEDS: VITAMIN D3 (cholecalciferol) 25 MCG PO (08:44)
[2024-01-14] MEDS: COZAAR 50 MG PO (08:44)
[2024-01-14] MEDS: FLAGYL 500 MG PO (08:44)
[2024-01-14] MEDS: COLACE 100 MG PO (08:44)
[2024-01-14] MEDS: THERAGRAN 1 TABLET PO (08:44)
[2024-01-14] MEDS: OSCAL 500 + D 500 MG PO (08:44)
[2024-01-14] MEDS: NON-FORMULARY ITEM 1 UNIT PO (08:45)
[2024-01-14] MEDS: VITAMIN B-6 100 MG PO (08:47)
[2024-01-14] MEDS: VITAMIN C 500 MG PO (08:47)
[2024-01-14] MEDS: DESENEX/MITRAZOL/ZEASORB 1 APPLIC TOPICAL (08:47)
--- NOTE | 2024-01-14 10:17 | PTCARENOTE ---
pt aaox3. states chronic lower back pain lido patch applied as ordered. pt showed rn an abrasion on right yee. pt states it is from scd[facility] foam dressing applied. pt ambulates with min assist. pt states no abd pain at this time.
--- NOTE | 2024-01-14 11:16 | W.PN.CRS1 ---
Today's Communication / Plan
-
continue low residue
okay for d/c from our perspective
Assessment/Plan
-
Assessment: 78yo female with descending colon and a focal area of perforated diverticulitis with possible pneumatosis cystoides coli
Plan:
1. Continue low residue.
2. Vitals normal. WBC normal.
3. Okay for discharge from our perspective. She will need to follow up in 2 -[address] Bender as an outpatient. Eventual scope. Patient also needs an endoscopy, suggested GI given need for both.
4. Stool cultures pending.
Subjective Data
Subjective Data
Date of Service: January 14, 2024
Patient states he has no nausea or vomiting. She still have loose stools but they are improving. She has no pain. She is tolerating a diet.
Objective Data
-
Vital Signs
Temp Pulse Resp BP Pulse Ox
98.2 F 102 18 153/95 94
01/14/24 07:50 01/14/24 08:44 01/14/24 07:50 01/14/24 08:44 01/14/24 07:50
Intake & Output
01/13/24 01/14/24 01/15/24
06:59 06:59 06:59
Intake Total 1360 / 1360 1080 / 1080
Balance 1360 / 1360 1080 / 1080
Intake:
Oral fluids 960 / 960 1080 / 1080
IV fluids (Total) 400 / 400
Other:
Number of approximated MODERATE 3 2
amounts of urine
Number of approximated LARGE 1
amounts of urine
Number of unmeasured liquid
stools
Rectum 4
Lab Results
01/14/24 05:19
01/14/24 05:19
Physical Exam
-
General: No Acute Distress and AOx3
Abdomen: Soft, Non Distended and Non Tender
Skin: Warm and Dry
[2024-01-14 12:32] LABS: Glucose - Point of Care 103 mg/dl (70-99)
--- NOTE | 2024-01-14 13:10 | W.PN.HOSP.TC ---
Today's Communication/Plan
-
d/c
Assessment / Plan
Assessment / Plan
pt is a 78 year old female
Perforated pneumatosis cystoides coli--CT abdomen shows free intraperitoneal air consistent with focal area of perforation--Xray with severe pneumatosis cystoides coli--stop IVF--apprec CRS, changed zosyn to flagyl Q8H for 3 months--pain
control--tolerating diet--ok for d/c
COPD-Continue inhalers
Obstructive sleep apnea
Essential hypertension-Continue losartan, metoprolol
Type 2 diabetes-Insulin sliding scale
Hyperlipidemia-on reclast
History of endometrial cancer
Chronic lower extremity edema
GERD-Continue famotidine, omeprazole
Overactive bladder-Continue Gemtesa
Obesity--affects all aspects of care
Constipation-Continue bowel regimen
Full code
DVT prophylaxis�SCDs
Anticipated Discharge: Today
Subjective/Interval History
-
Date of Service: January 14, 2024
pt tolerating diet
Objective Data
-
Labs:
Laboratory Results
01/14/24
05:19
WBC 7.5
Hgb 11.8 L
Hct 36.6 L
Plt Count 231
Sodium 137
Potassium 4.1
Chloride 102
Carbon Dioxide 28
BUN 10
Creatinine 1.0
Glucose 107 H
Calcium 9.0
Vital Signs:
max temp for 24 hours
01/14/24
07:50
Temp 98.2 F
Vital Signs
Temp Pulse Resp BP Pulse Ox
98.2 F 102 18 153/95 94
01/14/24 07:50 01/14/24 08:44 01/14/24 07:50 01/14/24 08:44 01/14/24 07:50
I&O
01/13/24 01/14/24 01/15/24
06:59 06:59 06:59
Intake Total 1360 / 1360 1080 / 1080
Balance 1360 / 1360 1080 / 1080
Review of Systems
-
All other systems: Reviewed and negative
Physical Exam
-
General: Well Developed, Well Nourished, No Apparent Distress and Morbidly Obese
HEENT: Normocephalic and Atraumatic
Respiratory: Clear to Auscultation; Negative Wheezes or Rhonchi
Cardiac: Regular Rhythm and S1/S2; Negative Murmur
GI: Soft, Nontender, Nondistended and Normal Bowel Sounds
Musculoskeletal: No Clubbing, No Cyanosis and No Edema
Skin: Warm
Neuro: Awake
--- NOTE | 2024-01-14 13:47 | CM ---
Patient seen at bedside with physician. Patient states that she has a ride and IMM completed and signed form placed on chart. Patient with no questions at this time. CM will continue to follow for discharge planning needs.
Plan; home with no needs.
[2024-01-14 14:00] VITALS: BP 148/92
--- NOTE | 2024-01-14 14:56 | PTCARENOTE ---
pt given discharge instructions verbalized understanding of medications ad follow ups. pt left with home medication.
--- NOTE | 2024-01-14 16:10 | W.DCSUMMARY ---
Discharge Summary
Discharge Data
Date of Admission: 01/10/24
Date of Discharge: 01/14/24
-
Pending Results: Yes
Additional Pending Results:
Stool studies for Salmonella/Shigella/Campylobacter/Shiga toxin all pending
Hospital Course
Primary care physician : Crystal Saunders
Principal Discharge diagnosis : Perforated pneumatosis cystoides coli
Chronic Discharge diagnosis : Chronic obstructive pulmonary disease, obstructive sleep apnea, essential hypertension, type 2 diabetes mellitus, hyperlipidemia, history of endometrial cancer, chronic lower extremity edema, gastroesophageal reflux
disease, overactive bladder, obesity, constipation
Hospital Course : Patient was a 78-year-old female with multiple medical issues who presented with intermittent nonbloody diarrhea for 14 days prior to admission with associated left-sided abdominal pain. She also had nausea and dry heaving for the
past 3 days prior to admission. She started taking Repatha injection 6 weeks ago and had diarrhea after each injection. She describes diarrhea as watery and mucousy without any blood. Patient did undergo an outpatient CAT scan of the abdomen and
pelvis which showed perforated diverticulum patient was referred to the hospital for admission.
Problem #1: Perforated pneumatosis cystoides coli. This was initially thought to be due to perforated diverticulitis. Patient was admitted and seen in consultation by colorectal surgery. Patient was started on IV Zosyn and IV fluids. She did not
tolerate IV Dilaudid for pain control as she had persistent nausea and vomiting. Upon obtaining an abdominal x-ray, the day after admission, diagnosis was changed to severe pneumatosis cystoides coli in the splenic flexure of the colon. Therefore,
IV Zosyn was stopped and the patient was started on metronidazole which should be continued for [address] resolves, whichever comes first. Patient is tolerating a diet and is anxious to go home. White blood cell count has been
normal throughout her hospitalization.
Problem #2: All other medical issues. These include Chronic obstructive pulmonary disease, obstructive sleep apnea, essential hypertension, type 2 diabetes mellitus, hyperlipidemia, history of endometrial cancer, chronic lower extremity edema,
gastroesophageal reflux disease, overactive bladder, obesity, constipation. These medical issues were stable during her hospitalization. Medications were continued as able.
Patient is stable for discharge home at this time. If there are any questions regarding this dictation or her hospital stay, please not hesitate to call. Our office number is [phone].
Important imaging findings :
CT SCAN ABDOMEN/PELVIS IMPRESSION:
There is free intraperitoneal air most consistent with anterior location of the descending colon and a focal area of perforated diverticulitis. No significant adjacent stranding or abscess. No free fluid.
ABDOMINAL X-RAY IMPRESSION:
SEVERE PNEUMATOSIS CYSTOIDES COLI in the SPLENIC FLEXURE of the COLON with an adjacent small amount of contained pneumoperitoneum in the left upper quadrant of the abdomen.
Discharge Plan
-
Patient Disposition: Home (Routine Discharge)
Discharge Diagnosis/Procedures: Perforated pneumatosis cystoides coli, chronic obstructive pulmonary disease, obstructive sleep apnea, essential hypertension, type 2 diabetes mellitus, hyperlipidemia, history of endometrial cancer, chronic lower
extremity edema, gastroesophageal reflux disease, overactive bladder, obesity, constipation
Condition: Good
Diet: Diabetic, Carb Controlled
Activity: As tolerated
Driving Restrictions: As prior to admission
Bathing Restrictions: None
Referrals:
Crystal Saunders MD [Family Provider] - in less than 1 week
Edward Bender MD [Active] - in two to four weeks
Prescriptions:
New
metronidazole 500 mg Tablet
500 mg PO TID Qty: 90 0RF
Continued
fluticasone propionate 1 SPRAY spray,suspension
2 spray intranasal DAILY PRN (Reason: alleriges)
alpha lipoic acid 100 MG capsule
200 mg PO MOTH
lidocaine 4 % Adhesive Patch,Medicated
1 patch TOPICAL DAILY
metoprolol succinate [Toprol XL] 50 mg Tablet Extended Release 24 Hr
50 mg PO DAILY
cyanocobalamin (vitamin B-12) [Vitamin B-12] 500 mcg Tablet
500 mcg PO DAILY
ascorbic acid (vitamin C) [Vitamin C] 500 mg Tablet
500 mg PO MOWE
Fiber (calcium polycarbophil) 625 mg Tablet
625 mg PO DAILY
docusate sodium [Col-Rite] 100 mg Capsule
100 mg PO DAILY
omeprazole 20 mg Capsule,Delayed Release(Dr/Ec)
20 mg PO QPM
pyridoxine (vitamin B6) [Vitamin B-6] 100 mg Tablet
100 mg PO MOWEFR
cholecalciferol (vitamin D3) [Vitamin D3] 10 mcg (400 unit) Tablet
10 mcg PO DAILY
omega-3 acid ethyl esters [Lovaza] 1 gram Capsule
1 cap PO DAILY
calcium carbonate-vitamin D3 [Calcium 500 + D] 500 mg-5 mcg (200 unit) Tablet
1 tab PO DAILY
cholecalciferol (vitamin D3) [Vitamin D3] 25 mcg (1,000 unit) Tablet
25 mcg PO DAILY
Gemtesa 75 mg Tablet
75 mg PO DAILY
therapeutic multivitamin Tablet
1 tab PO DAILY
coQ10 (ubiquinol) 100 mg Capsule
100 mg PO DAILY
losartan 50 mg Tablet
50 mg PO BID Qty: 60 0RF
famotidine 40 mg Tablet
40 mg PO HS Qty: 30 0RF
albuterol sulfate 1 PUFF HFA aerosol inhaler
2 puff inhalation R Q4HPRN PRN (Reason: sob) Qty: 6.7 0RF
Hair, Skin and Nails (biotin) 10,000 mcg Tablet,Chewable
10,000 mcg PO DAILY
Reclast
1 dose IV [id number]
polyethylene glycol 3350 17 gram powder in packet
17 g PO DAILYPRN PRN (Reason: constipation)
guaifenesin [Mucinex] 600 mg tablet extended release 12hr
600 mg PO Q48H@2000
Discharge Orders:
Discharge Patient (As Directed); Ordered 01/14/24
Ordered By: Michelle Owen
Discharge Date and Time
Discharge Date/Time: 01/14/24 14:25
Print Language: [id number]
== END 2024-01-14 14:25 | disposition home or self-care (01) | DRG 392 ==
LOC: 4 EAST ACU 20:33
PROVIDERS: ADMITTING PHYSICIAN Hospitalist; ATTENDING PHYSICIAN Internal Medicine; CONSULT PHYSICIAN Surgery; EMERGENCY PHYSICIAN Emergency Medicine; FAMILY PHYSICIAN Emergency Medicine
DX: K57.20 Diverticulitis of large intestine with perforation and abscess without bleeding (principal); Z68.43 Body mass index [BMI] 50.0-59.9, adult; K63.89 Other specified diseases of intestine; G47.33 Obstructive sleep apnea (adult) (pediatric); I10 Essential (primary) hypertension; J44.9 Chronic obstructive pulmonary disease, unspecified; E78.5 Hyperlipidemia, unspecified; E66.9 Obesity, unspecified; E11.9 Type 2 diabetes mellitus without complications; N32.81 Overactive bladder; K21.9 Gastro-esophageal reflux disease without esophagitis; Z79.84 Long term (current) use of oral hypoglycemic drugs; Z85.42 Personal history of malignant neoplasm of other parts of uterus
CPT/HCPCS: 74019; 74177; 80048; 80053; 82962; 83605; 83735; 85025; 85027; 87040; 87045; 87046; 87324; 87427; 87449; 93005; 96365; 96375; 99285; Q9967

== ENCOUNTER → 2024-01-23 10:58 | Outpatient (REF) | payer MEDICARE, BC, SELFPAY ==
[2024-01-23 12:35] LABS: % Basophils 0.9 % (0-2); % Eosinophils 1.3 % (0-6); % Immature Granulocytes 0.3 % (0-0.5); % Lymphocytes 24.1 % (20.5-51.1); % Monocytes 10.1 % (1.7-9.3); % Neutrophils 63.3 % (42.2-75.2); Absolute Basophils 0.1 10^3/uL (0-0.2); Absolute Eosinophils 0.1 10^3/uL (0-0.7); Absolute Lymphocytes 1.9 10^3/uL (1.2-3.4); Absolute Monocytes 0.8 10^3/uL (0.1-0.6); Absolute Neutrophils 4.9 10^3/uL (1.4-6.5); Hematocrit 39.1 % (37.0-47.0); Hemoglobin 12.7 g/dL (12.0-16.0); Mean Corp Hgb Conc. 32.5 g/dL (33.0-37.0); Mean Corpuscular Hgb 27.7 pg (27.0-31.0); Mean Corpuscular Volume 85.4 fL (81.0-99.0); Mean Platelet Volume 9.3 fL (7.4-10.4); Nucleated Red Blood Cells % 0 %; Platelet Count 316 10^3/uL (130-400); Red Blood Cell Count 4.58 10^6/uL (4.20-5.40); Red Cell Dist. Width 14.6 % (11.5-14.5); White Blood Cell Count 7.7 10^3/uL (4.8-10.8)
[2024-01-23 12:54] LABS: D-Dimer 2.57 ug/mlFEU (0.00-0.50)
[2024-01-23 13:18] LABS: ALT (SGPT) 28 U/L (0-35); AST (SGOT) 36 U/L (14-36); Alkaline Phosphatase 81 U/L (38-126); Blood Urea Nitrogen 12 mg/dl (7-17); Calcium 9.3 mg/dl (8.4-10.2); Carbon Dioxide 27 mmol/L (22-30); Chloride 99 mmol/L (98-107); Glucose 115 mg/dl (70-99); Iron 66 ug/dl (37-170); Potassium 4.6 mmol/L (3.5-5.1); Sodium 138 mmol/L (135-145); Total Bilirubin 0.4 mg/dl (0.2-1.3); Total Protein 6.8 g/dl (6.3-8.2); eGFR > 60.00
[2024-01-23 13:28] LABS: Percent Saturation 19 % (20-50); Total Iron Binding Capacity 341 ug/dl (265-497)
[2024-01-23 14:29] LABS: Ferritin 14.6 ng/ml (11.1-264.0)
== END ==
LOC: HWLAB 10:58
PROVIDERS: ATTENDING PHYSICIAN Nurse Practitioner Family; FAMILY PHYSICIAN Emergency Medicine
DX: R19.7 Diarrhea, unspecified (principal); D50.9 Iron deficiency anemia, unspecified; R06.2 Wheezing; E11.9 Type 2 diabetes mellitus without complications
CPT/HCPCS: 36415; 80053; 82728; 83540; 83550; 85025; 85379

== ENCOUNTER → 2024-01-23 15:18 | Outpatient (REF) | payer MEDICARE, BC, SELFPAY | LOC: RAD 15:18 | PROVIDERS: ATTENDING PHYSICIAN Nurse Practitioner Family; FAMILY PHYSICIAN Emergency Medicine | DX: R79.89 Other specified abnormal findings of blood chemistry (principal); R06.02 Shortness of breath | CPT/HCPCS: 71275; Q9967 ==

== ENCOUNTER → 2024-02-05 12:50 | Outpatient (REF) | payer MEDICARE, BC, SELFPAY | LOC: RCS 12:50 | PROVIDERS: ATTENDING PHYSICIAN Internal Medicine Cardiovascular Disease; FAMILY PHYSICIAN Emergency Medicine | DX: I10 Essential (primary) hypertension (principal); R06.09 Other forms of dyspnea | CPT/HCPCS: 93306 ==

== ENCOUNTER → 2024-04-18 09:01 | Outpatient (REF) | payer MEDICARE, BC, SELFPAY ==
[2024-04-18 11:49] LABS: % Basophils 1.2 % (0-2); % Eosinophils 1.9 % (0-6); % Immature Granulocytes 0.3 % (0-0.5); % Lymphocytes 29.1 % (20.5-51.1); % Monocytes 9.7 % (1.7-9.3); % Neutrophils 57.8 % (42.2-75.2); Absolute Basophils 0.1 10^3/uL (0-0.2); Absolute Eosinophils 0.1 10^3/uL (0-0.7); Absolute Monocytes 0.7 10^3/uL (0.1-0.6); Absolute Neutrophils 3.9 10^3/uL (1.4-6.5); Hematocrit 38.3 % (37.0-47.0); Hemoglobin 12.5 g/dL (12.0-16.0); Mean Corp Hgb Conc. 32.6 g/dL (33.0-37.0); Mean Corpuscular Hgb 27.5 pg (27.0-31.0); Mean Corpuscular Volume 84.4 fL (81.0-99.0); Mean Platelet Volume 9.6 fL (7.4-10.4); Nucleated Red Blood Cells % 0 %; Platelet Count 269 10^3/uL (130-400); Red Blood Cell Count 4.54 10^6/uL (4.20-5.40); Red Cell Dist. Width 14.2 % (11.5-14.5); White Blood Cell Count 6.7 10^3/uL (4.8-10.8)
[2024-04-18 12:06] LABS: Glycohemoglobin (HgbA1c) 6.4 % (4.0-5.6)
[2024-04-18 13:25] LABS: ALT (SGPT) 29 U/L (0-35); AST (SGOT) 30 U/L (14-36); Alkaline Phosphatase 112 U/L (38-126); Blood Urea Nitrogen 13 mg/dl (7-17); Calcium 9.3 mg/dl (8.4-10.2); Carbon Dioxide 29 mmol/L (22-30); Chloride 103 mmol/L (98-107); Glucose 107 mg/dl (70-99); HDL Cholesterol 44 mg/dl; LDL Cholesterol, Calculated 159 mg/dl; Potassium 4.4 mmol/L (3.5-5.1); Sodium 140 mmol/L (135-145); Total Bilirubin 0.5 mg/dl (0.2-1.3); Total Cholesterol 232 mg/dl (50-199); Total Protein 6.8 g/dl (6.3-8.2); Triglyceride 147 mg/dl (10-149); Very Low Density Lipoprotein 29 mg/dl (0-30); eGFR > 60.00
== END ==
LOC: HWLAB 09:01
PROVIDERS: ATTENDING PHYSICIAN Internal Medicine Cardiovascular Disease; FAMILY PHYSICIAN Emergency Medicine
DX: E11.69 Type 2 diabetes mellitus with other specified complication (principal); E66.01 Morbid (severe) obesity due to excess calories; E78.2 Mixed hyperlipidemia; I10 Essential (primary) hypertension
CPT/HCPCS: 36415; 80053; 80061; 83036; 85025

== ENCOUNTER 2024-07-02 11:49 | Emergency (ER) | payer MEDICARE, BC, SELFPAY ==
[2024-07-02 11:51] VITALS: BP 184/107
[2024-07-02 12:32] LABS: % Basophils 1.1 % (0-2); % Eosinophils 0.6 % (0-6); % Immature Granulocytes 0.3 % (0-0.5); % Lymphocytes 22.1 % (20.5-51.1); % Monocytes 6.5 % (1.7-9.3); % Neutrophils 69.4 % (42.2-75.2); Absolute Basophils 0.1 10^3/uL (0-0.2); Absolute Lymphocytes 1.4 10^3/uL (1.2-3.4); Absolute Monocytes 0.4 10^3/uL (0.1-0.6); Absolute Neutrophils 4.5 10^3/uL (1.4-6.5); Hemoglobin 13.6 g/dL (12.0-16.0); Mean Corp Hgb Conc. 33.2 g/dL (33.0-37.0); Mean Corpuscular Hgb 27.5 pg (27.0-31.0); Mean Platelet Volume 9.1 fL (7.4-10.4); Nucleated Red Blood Cells % 0 %; Platelet Count 256 10^3/uL (130-400); Red Blood Cell Count 4.94 10^6/uL (4.20-5.40); Red Cell Dist. Width 14.7 % (11.5-14.5); White Blood Cell Count 6.5 10^3/uL (4.8-10.8)
[2024-07-02 12:49] LABS: ALT (SGPT) 29 U/L (0-35); AST (SGOT) 29 U/L (14-36); Albumin 4.3 g/dl (3.5-5.0); Alkaline Phosphatase 125 U/L (38-126); Blood Urea Nitrogen 11 mg/dl (7-17); Calcium 9.2 mg/dl (8.4-10.2); Carbon Dioxide 26 mmol/L (22-30); Chloride 102 mmol/L (98-107); Glucose 125 mg/dl (70-99); Potassium 4.1 mmol/L (3.5-5.1); Sodium 142 mmol/L (135-145); Total Bilirubin 0.5 mg/dl (0.2-1.3); Total Protein 7.2 g/dl (6.3-8.2); eGFR > 60.00
[2024-07-02 12:57] LABS: Troponin I < 0.012 ng/ml
--- NOTE | 2024-07-02 13:16 | ED.GENMED ---
History of Present Illness
General
Chief Complaint: Rectal Bleeding
Source: patient
Exam Limitations: none
Time Seen by Provider: 07/02/24 13:01
Nursing documentation reviewed up to this point in time: agreed with
History of Present Illness
History of Present Illness:
78 yo female w h/o morbid obesity, COPD, Afib diagnosed 5 weeks ago, on Eliquis, HTN, HLD, stress incontinence, hysterectomy, abdominal incisional hernia, hiatal hernia, Pneumocystis interstitialis bowel disease, fissure, internal and external
hemorrhoids, chronic intermittent blood seen in stools, presents stating she awakened this 7:30 a.m. with generalized abdominal pain, mainly across lower and right lower abdomen. Nausea earlier today but not now. No vomiting. Denies fever/chills.
Denies diarrhea, constipation. States she had a large, soft BM today 'with blood mixed in with it.'
Past History
Past History
ED Past Medical History: HTN, NIDDM and Other (endometrial cancer, urinary incontinence)
ED Past Surgical History: Other (hysterectomy)
Social History
Tobacco: Non-smoker
Alcohol: Occasional
Drug: None
Personal:
Living: with family
Employment: Employed
Review of Systems
Review of Systems
Allergies reviewed?: Yes
All Other Systems: ROS reviewed and negative except as documented in HPI and ROS
Constitutional: Denies fever or chills
Respiratory: Reports trouble breathing (chronic SOB, nothing new); Denies cough
Cardiac: Denies chest pain
ABD/GI: Reports abdominal pain, nausea, bloody stools and other (internal and external hemorrhoids); Denies vomiting, diarrhea, constipated or anorexia
: Reports incontinence (chronic); Denies dysuria, frequency, difficulty voiding or urgency
Musculoskeletal: Denies edema
Skin: Reports no symptoms
Neurological: Reports no symptoms
Phy Exam
Physical Exam
Physical Exam:
GENERAL: No acute distress. A&Ox3.
CONSTITUTIONAL: Afebrile.
EYES: clear, conjunctivae normal
ENMT: moist mucus membranes, Pharynx nl
RESPIRATORY: Regular respirations, nonlabored, lungs clear.
CARDIOVASCULAR: Regular rate and rhythm, no murmurs, no rubs.
GI: Morbidly obeses, Soft, tender across lower abdomen, more-so mid to right lower abdomen. normal BS
Rectal: few small external non bleeding hemorrhoids, no stool in rectal vault, clear mucuc hematest neg
MUSCULOSKELETAL: Well perfused. No edema
SKIN: Warm, dry, pink
PSYCH: Normal mood and affect. Well kept, interactive and appropriate
NEUROLOGIC: Awake, alert and oriented. No focal neurological deficits
Course
Orders/Labs/Results
Orders:
Orders
07/02/24 11:56
Electrocardiogram (*1) Urgent
Reason for Study: Tachycardia
EKG- Treatment ONCE
07/02/24 12:18
Complete Blood Count/With Diff Urgent
Comprehensive Metabolic Panel Urgent
Troponin I Urgent
07/02/24 13:16
CT Abd/Pel (IV only)-DH only Urgent
Comment:
Reason For Exam: diffuse abd pain, worse lower and R abdomen
07/02/24 15:33
Urinalysis Reflex To Culture Urgent
Date Specimen was Collected: 07/02/24
Time Specimen was Collected: 15:31
Abnormal Lab Results
07/02/24
12:18
RDW 14.7 H %
(11.5-14.5)
Glucose 125 H mg/dl
(70-99)
07/02/24 12:18
07/02/24 12:18
Vital Signs
Initial and Last Documented VS:
Initial Vital Signs
Temp Pulse Resp BP Pulse Ox
98.5 F 121 18 184/107 96
07/02/24 11:51 07/02/24 11:51 07/02/24 11:51 07/02/24 11:51 07/02/24 11:51
Last Documented Vital Signs
Temp Pulse Resp BP Pulse Ox
98.5 F 115 17 148/80 97
07/02/24 11:51 07/02/24 15:30 07/02/24 13:30 07/02/24 15:28 07/02/24 15:30
MDM/Problems Addressed
Differential Diagnosis Includes:
Hemorrhoids, GI bleed, fissure
Colitis, diverticulitis
MDM/Problems Addressed:
78 yo female w h/o morbid obesity, COPD, Afib diagnosed 5 weeks ago, on Eliquis, HTN, HLD, stress incontinence, hysterectomy, abdominal incisional hernia, hiatal hernia, Pneumocystis interstitialis bowel disease, fissure, internal and external
hemorrhoids, chronic intermittent blood seen in stools, presents stating she awakened this 7:30 a.m. with generalized abdominal pain, mainly across lower and right lower abdomen. Nausea earlier today but not now. No vomiting. Denies fever/chills.
Denies diarrhea, constipation. States she had a large, soft BM today 'with blood mixed in with it.'
Afebrile, NAD
EKG: A fib with RVR 115 (pt is to schedule a cardioversion with her cooler man, she missed her cardiology appt today will call to reschedule).
CBC normal
CMP Normal
Lipase normal
U/A neg
3:[address] abd/pelvis w IV only contrast radiology report read:
IMPRESSION:
Cholelithiasis. No gallbladder wall thickening or biliary tract dilatation.
Mild hepatomegaly.
Right paramidline approximate 7 cm predominantly fat only containing anterior pelvic wall hernia, opening measuring approximately 4 cm, predominantly stable.
Small fat only containing umbilical hernia.
Unremarkable appendix.
No intestinal obstruction or free air.
Nothing concerning in pt workup here today. Copy of CT scan given to her.
Few non thrombosed external hemorrhoids may have bled earlier, no bleeding now
Pt stable for discharge
HR 101-117 a fib on monitor. BP148/
To call her cooler man to reschedule.
Notified Lois Grover, Cardiology SENIOR MANAGER [facility] who pt was to see today.
She answered back that someone from her office will reach out to pt
*Critical Care Note
Total Time (30-74mins, 75-104mins- exclusive of procedures): Not Applicable
ED Attending Note
-
Portions of this chart may have been created with voice recognition software.� Occasional wrong word or��sound alike� substitutions may have occurred due to the inherent limitations of voice recognition software.
Discharge Plan
Departure
Patient Disposition: Home (Routine Discharge)
Date of Disposition: 07/02/24
Time of Disposition: 15:33
Patient with high blood pressure during this ER visit?: No
Condition: Good
Discharge Problem:
Abdominal pain
Instructions: Abdominal Pain
Prescriptions:
No Action
fluticasone propionate 1 SPRAY spray,suspension
2 spray intranasal DAILY PRN (Reason: alleriges)
alpha lipoic acid 100 MG capsule
200 mg PO MOTH
lidocaine 4 % Adhesive Patch,Medicated
1 patch TOPICAL DAILY
metoprolol succinate [Toprol XL] 50 mg Tablet Extended Release 24 Hr
50 mg PO DAILY
cyanocobalamin (vitamin B-12) [Vitamin B-12] 500 mcg Tablet
500 mcg PO DAILY
ascorbic acid (vitamin C) [Vitamin C] 500 mg Tablet
500 mg PO MOWE
Fiber (calcium polycarbophil) 625 mg Tablet
625 mg PO DAILY
docusate sodium [Col-Rite] 100 mg Capsule
100 mg PO DAILY
omeprazole 20 mg Capsule,Delayed Release(Dr/Ec)
20 mg PO QPM
pyridoxine (vitamin B6) [Vitamin B-6] 100 mg Tablet
100 mg PO MOWEFR
cholecalciferol (vitamin D3) [Vitamin D3] 10 mcg (400 unit) Tablet
10 mcg PO DAILY
omega-3 acid ethyl esters [Lovaza] 1 gram Capsule
1 cap PO DAILY
calcium carbonate-vitamin D3 [Calcium 500 + D] 500 mg-5 mcg (200 unit) Tablet
1 tab PO DAILY
cholecalciferol (vitamin D3) [Vitamin D3] 25 mcg (1,000 unit) Tablet
25 mcg PO DAILY
Gemtesa 75 mg Tablet
75 mg PO DAILY
therapeutic multivitamin Tablet
1 tab PO DAILY
coQ10 (ubiquinol) 100 mg Capsule
100 mg PO DAILY
losartan 50 mg Tablet
50 mg PO BID Qty: 60 0RF
famotidine 40 mg Tablet
40 mg PO HS Qty: 30 0RF
albuterol sulfate 1 PUFF HFA aerosol inhaler
2 puff inhalation R Q4HPRN PRN (Reason: sob) Qty: 6.7 0RF
Hair, Skin and Nails (biotin) 10,000 mcg Tablet,Chewable
10,000 mcg PO DAILY
Reclast
1 dose IV [id number]
polyethylene glycol 3350 17 gram powder in packet
17 g PO DAILYPRN PRN (Reason: constipation)
guaifenesin [Mucinex] 600 mg tablet extended release 12hr
600 mg PO Q48H@2000
metronidazole 500 mg Tablet
500 mg PO TID Qty: 90 0RF
Referrals:
Lois Grover PA-C [Specified Professional Personl] - Next open appointment
Crystal Saunders MD [Family Provider] -
Activity Restrictions/Additional Instructions:
As we discussed, your workup here today shows nothing worrisome.
If your abdominal pain is not improved by Sunday (5 days) see your doctor for reevaluation.
Return here immediately for worsening pain, fever, vomiting or feeling sicker in any way.
call the Cardiology office today or tomorrow and reschedule your appointment
Interventions
Interventions:
*Risk Screen - Suicide Last Done: 07/02/24 11:51
*General Assessment Last Done: 07/02/24 11:51
*Neglect/Abuse Screening Last Done: 07/02/24 11:51
*Nursing Disposition Last Done: 07/02/24 16:18
QE-Fbghql-Wmsuqypcwc Assessment Last Done: 07/02/24 13:18
ED- Cardiac Assessment Last Done: 07/02/24 13:18
ED- Pulmonary Assessment Last Done: 07/02/24 13:18
Discharge Date and Time
Discharge Date/Time: 07/02/24 16:19
Print Language: SAUDI ARABIAN
[2024-07-02 13:20] VITALS: BP 177/113
[2024-07-02 15:28] VITALS: BP 148/80
[2024-07-02 15:47] LABS: Urine Albumin Negative (Neg - Trace); Urine Bilirubin Negative (Negative); Urine Character Clear (Clear); Urine Color Yellow; Urine Glucose Negative (Negative); Urine Ketone Negative (Negative); Urine Leukocyte Negative (Negative); Urine Nitrite Negative (Negative); Urine Occult Blood Negative (Negative); Urine Urobilinogen Negative (Neg - 1+)
== END 2024-07-02 16:19 | disposition home or self-care (01) ==
LOC: EMR 11:49
PROVIDERS: Emergency Medicine; Registered Nurse; EMERGENCY PHYSICIAN Student in an Organized Health Care Education/Training Program; FAMILY PHYSICIAN Emergency Medicine
DX: R10.84 Generalized abdominal pain (principal); R11.0 Nausea; R07.89 Other chest pain; R06.02 Shortness of breath; K64.5 Perianal venous thrombosis; K92.1 Melena; K64.8 Other hemorrhoids; K80.20 Calculus of gallbladder without cholecystitis without obstruction; R16.0 Hepatomegaly, not elsewhere classified; K42.9 Umbilical hernia without obstruction or gangrene; I48.91 Unspecified atrial fibrillation; E66.01 Morbid (severe) obesity due to excess calories; I10 Essential (primary) hypertension; R32 Unspecified urinary incontinence; E78.5 Hyperlipidemia, unspecified; J45.909 Unspecified asthma, uncomplicated; G47.30 Sleep apnea, unspecified; K57.92 Diverticulitis of intestine, part unspecified, without perforation or abscess without bleeding; M19.90 Unspecified osteoarthritis, unspecified site; M81.0 Age-related osteoporosis without current pathological fracture; F41.9 Anxiety disorder, unspecified; E11.40 Type 2 diabetes mellitus with diabetic neuropathy, unspecified; Z85.42 Personal history of malignant neoplasm of other parts of uterus; Z88.6 Allergy status to analgesic agent; Z88.4 Allergy status to anesthetic agent; Z88.1 Allergy status to other antibiotic agents; Z88.5 Allergy status to narcotic agent; Z88.2 Allergy status to sulfonamides; Z88.8 Allergy status to other drugs, medicaments and biological substances
CPT/HCPCS: 99285; 74177; 80053; 81003; 84484; 85025; 93005; Q9967

== ENCOUNTER → 2024-08-11 09:41 | Day surgery (SDC) | payer MEDICARE, BC, SELFPAY | LOC: CATH 09:41 | PROVIDERS: ATTENDING PHYSICIAN Internal Medicine Cardiovascular Disease; FAMILY PHYSICIAN Emergency Medicine; OTHER PHYSICIAN Internal Medicine Cardiovascular Disease | DX: I48.91 Unspecified atrial fibrillation (principal); I25.10 Atherosclerotic heart disease of native coronary artery without angina pectoris; I10 Essential (primary) hypertension; E78.5 Hyperlipidemia, unspecified; G47.33 Obstructive sleep apnea (adult) (pediatric); E11.9 Type 2 diabetes mellitus without complications; K21.9 Gastro-esophageal reflux disease without esophagitis; Z79.01 Long term (current) use of anticoagulants | CPT/HCPCS: 92960; 93005 ==

== ENCOUNTER → 2024-09-10 09:30 | Outpatient (REF) | payer MEDICARE, BC, SELFPAY ==
[2024-09-10 12:20] LABS: % Basophils 0.9 % (0-2); % Immature Granulocytes 0.1 % (0-0.5); % Lymphocytes 30.1 % (20.5-51.1); % Monocytes 9.2 % (1.7-9.3); % Neutrophils 57.7 % (42.2-75.2); Absolute Basophils 0.1 10^3/uL (0-0.2); Absolute Eosinophils 0.1 10^3/uL (0-0.7); Absolute Lymphocytes 2.1 10^3/uL (1.2-3.4); Absolute Monocytes 0.6 10^3/uL (0.1-0.6); Hematocrit 42.9 % (37.0-47.0); Hemoglobin 13.3 g/dL (12.0-16.0); Mean Corpuscular Volume 87.2 fL (81.0-99.0); Mean Platelet Volume 9.3 fL (7.4-10.4); Nucleated Red Blood Cells % 0 %; Platelet Count 267 10^3/uL (130-400); Red Blood Cell Count 4.92 10^6/uL (4.20-5.40); Red Cell Dist. Width 14.5 % (11.5-14.5); White Blood Cell Count 6.9 10^3/uL (4.8-10.8)
[2024-09-10 12:23] LABS: ALT (SGPT) 28 U/L (0-35); AST (SGOT) 31 U/L (14-36); Albumin 4.2 g/dl (3.5-5.0); Alkaline Phosphatase 115 U/L (38-126); Blood Urea Nitrogen 15 mg/dl (7-17); Calcium 9.2 mg/dl (8.4-10.2); Carbon Dioxide 30 mmol/L (22-30); Chloride 100 mmol/L (98-107); Glucose 101 mg/dl (70-99); Potassium 4.5 mmol/L (3.5-5.1); Sodium 140 mmol/L (135-145); Total Bilirubin 0.6 mg/dl (0.2-1.3); Total Protein 7.1 g/dl (6.3-8.2); eGFR 58.02
[2024-09-10 12:38] LABS: Glycohemoglobin (HgbA1c) 6.3 % (4.0-5.6)
== END ==
LOC: HWLAB 09:30
PROVIDERS: ATTENDING PHYSICIAN Emergency Medicine
DX: E11.69 Type 2 diabetes mellitus with other specified complication (principal); D50.9 Iron deficiency anemia, unspecified
CPT/HCPCS: 36415; 80053; 83036; 85025

== ENCOUNTER 2024-09-24 17:45 | Inpatient (IN) | payer MEDICARE, BC, SELFPAY ==
[2024-09-24 13:03] VITALS: BP 176/113
--- NOTE | 2024-09-24 13:07 | ED.GENMED ---
ED Provider Triage
<Essie Moore PA-C - Last Filed: 09/24/24 20:33>
-
Patient seen by provider in Triage?: Seen in Triage
Attestation: A medical screening examination has been initiated by a qualified medical provider. Based on the assessment performed at this time, it has been determined that an emergent medical condition may exist and the patient has been informed
that further medical evaluation and possible additional diagnostic testing may be needed.
HPI: 78yoF sent from cardiology office for CHF exacerbation. C/o SOB, leg swelling, weight gain of 10+ pounds. Dr. Corral recommending admission, IV diuresis, and amiodarone load.
GENERAL: Alert , in no apparent distress
EYE: No visual abnormalities.
NECK: Trachea midline
ENT: No visible abnormalities.
LUNGS: No acute respiratory distress
NEUROLOGICAL: Alert and oriented
SKIN: Skin intact. No visible changes.
MUSCULOSKELETAL: Moving extremities normally
PSYCH: Normal and appropriate interaction.
This is a medical evaluation conducted in person to initiate diagnostic evaluation and provide initial therapeutics. Please see further documentation by the treating clinician.
Cardiac labs, EKG, and CXR ordered.
History of Present Illness
<Essie Moore PA-C - Last Filed: 09/24/24 20:33>
General
Chief Complaint: Cardiac Symptoms
Time Seen by Provider: 09/24/24 16:01
<Obey Boogie Jr., PA-C - Last Filed: 09/24/24 16:24>
General
Source: patient and physician
Exam Limitations: none
Nursing documentation reviewed up to this point in time: agreed with
History of Present Illness
History of Present Illness:
78-year-old female past medical history of A-fib, COPD, diabetes, GERD presenting to the emergency department today with concerns of concerns of heart failure after seeing her communications clerk earlier today. Patient has had a weight gain of at least 10
pounds and some shortness of breath. She was sent in for IV diuresis and amiodarone. Patient stable on my initial assessment in no distress.
Past History
<Essie Moore PA-C - Last Filed: 09/24/24 20:33>
Past History
ED Past Medical History: HTN, NIDDM and Other (endometrial cancer, urinary incontinence)
ED Past Surgical History: Other (hysterectomy)
Social History
Tobacco: Non-smoker
Alcohol: Occasional
Drug: None
Personal:
Living: with family
Employment: Employed
Review of Systems
<Obey Boogie Jr., PA-C - Last Filed: 09/24/24 16:24>
Review of Systems
Allergies reviewed?: Yes
All Other Systems: ROS reviewed and negative except as documented in HPI and ROS
Phy Exam
<Obey Boogie Jr., PA-C - Last Filed: 09/24/24 16:24>
Physical Exam
Physical Exam:
GENERAL: Alert , in no apparent distress
EYE: pupils equal and reactive
NECK: Supple, no significant adenopathy.
ENT: o/p clr, mmm.
CARDIAC: Regular rate and rhythm .
LUNGS: Clear breath sounds bilaterally, no acute respiratory distress, no wheezes/rales/rhonchi
ABDOMEN: Soft, without focal tenderness, no r/g, no cvat
NEUROLOGICAL: Alert and oriented, no focal neuro deficits
SKIN: Warm and dry, skin intact.
MUSCULOSKELETAL: No edema, well perfused.
PSYCH: Normal and appropriate interaction.
Course
<Essie Moore PA-C - Last Filed: 09/24/24 20:33>
Orders/Labs/Results
Orders:
Orders
09/24/24 13:06
Electrocardiogram (*1) Urgent
Reason for Study: Shortness of Breath
EKG- Treatment ONCE
09/24/24 13:12
CR Chest - 2 Views Urgent
Comment:
Reason For Exam: SOB
09/24/24 13:24
CMP [Comprehensive Metabolic Panel] Urgent
Complete Blood Count/With Diff Urgent
Free T4 Urgent
NT-proBNP Urgent
TSH Reflex To Free T4 Urgent
Comment: ADD ON
Troponin I Urgent
09/24/24 Dinner
2000 calorie (17 carb) Diabetic
Diabetic Diet: Sodium, 2 Gram
09/24/24 16:13
Furosemide [Lasix] 40 mg IV NOW STA
09/24/24 16:23
Amiodarone [Pacerone] 400 mg PO NOW STA
09/24/24 16:58
Admit/Transfer Patient As Directed
Co-Sign Provider:
Level of Care: Inpatient admission
Assign to:: Telemetry
Physician / Group: Merlin
Diagnosis: CHF
Reason for Telemetry: Arrhythmia
Date to Stop Telemetry: 09/27/24
Time to Stop Telemetry: 11:00
Reason for Hospitalization: IV diuretics
Expected length of stay greater than two midnights?: Yes
ELOS- Estimated Length of Stay in days: 3
I certify the patient meets the requirements for IP care: Yes
PRN Pain Medication Management As Directed
May give lesser potent ordered pain med per pt: Yes
preference::
Protocol:: Medication orders for pain may be administered in a
manner that supports deferring to patient preference
when the pt is:
- Requesting an ordered lesser potent pain medication.
Least to most potent pain medications are defined
as: acetaminophen < NSAID < tramadol < opioids
(morphine, oxycodone, hydromorphone).
- Requesting a lesser dose of the same medication IF
ORDERED.
- Requesting a less intrusive route of administration
if both routes are prescribed by the provider (PO <
IV).
09/24/24 17:06
Code Status As Directed
Resuscitation Status: Full Code
09/24/24 19:22
Famotidine [Pepcid] 40 mg PO HSPRN PRN
09/24/24 19:22
CARDIOLOGY CONSULT Routine
Consulting Provider: Marysol Corral
Was physician already notified: Yes
HF DIETARY CONSULT Routine
HF EDUCATOR CONSULT Routine
Comment:
Activity As Directed
Activity Level: Out of Bed-Early Mobility
Intake/ Output As Directed
Frequency: Per unit guidelines
Patient Education As Directed
Type: CHF folder
Comment: give on admission. Document in Interdisciplinary Education record
Sleep Apnea Assessment by RN As Directed
Comment:
Physician Instructions:
Vital Signs As Directed
Frequency: Other
Additional Instructions:: Q12 or per unit guidelines if more frequent.
Weight As Directed
Frequency: Daily
Type of Scale: Standing Scale
Comment: Daily morning weight. If unable to stand, use balanced bed scale.
Weight As Directed
Frequency: Once
Type of Scale: Standing Scale
Comment: Upon Admission. If unable to stand, use balanced bed scale.
Cpap [RESP] Routine
Patient to use own unit?: Yes
Pulse Ox/cont/shift [RESP] Routine
Quantity: 1
Special Instructions: Daily pulse oximetry at rest. If greater than 92% at rest also obtain pulse oximetry
while ambulating as tolerated.
09/24/24 20:00
Apixaban [Eliquis] 5 mg PO BID
Losartan [Cozaar] 50 mg PO BID
Pantoprazole [Protonix] 40 mg PO QPM
09/24/24 22:00
Amiodarone [Pacerone] 400 mg PO TID
09/25/24 06:00
Basic Metabolic Panel IN AM
Complete Blood Count/No Diff IN AM
Magnesium IN AM
09/25/24 08:00
Budesonide [Pulmicort] 0.5 mg INH R DAILY
Furosemide [Lasix] 40 mg IV DAILY
vibegron [Gemtesa] 75 mg PO DAILY
09/25/24 12:00
Metoprolol Xl [Toprol Xl] 50 mg PO NOON
09/26/24 06:00
Basic Metabolic Panel IN AM
09/27/24 06:00
Basic Metabolic Panel IN AM
09/27/24 11:00
DC Protocol for Telemetry ONCE
Abnormal Lab Results
09/24/24
13:24
Absolute Monos (auto) 0.7 H 10^3/uL
(0.1-0.6)
Lymphocytes % 19.5 L %
(20.5-51.1)
Glucose 124 H mg/dl
(70-99)
Alkaline Phosphatase 134 H U/L
(38-126)
TSH (Reflex) 0.12 L uIU/ml
(0.47-4.68)
09/24/24 13:24
09/24/24 13:24
Vital Signs
Initial and Last Documented VS:
Initial Vital Signs
Temp Pulse Resp BP Pulse Ox
97.9 F 104 20 176/113 95
09/24/24 13:03 09/24/24 13:03 09/24/24 13:03 09/24/24 13:03 09/24/24 13:03
Last Documented Vital Signs
Temp Pulse Resp BP Pulse Ox
97.5 F 89 20 123/78 96
09/24/24 20:12 09/24/24 20:12 09/24/24 20:12 09/24/24 20:12 09/24/24 20:12
<LINDSEY Mars Jr.C - Last Filed: 09/24/24 16:24>
Orders/Labs/Results
Orders:
Orders
09/24/24 13:06
Electrocardiogram (*1) Urgent
Reason for Study: Shortness of Breath
EKG- Treatment ONCE
09/24/24 13:12
CR Chest - 2 Views Urgent
Comment:
Reason For Exam: SOB
09/24/24 13:24
CMP [Comprehensive Metabolic Panel] Urgent
Complete Blood Count/With Diff Urgent
Free T4 Urgent
NT-proBNP Urgent
TSH Reflex To Free T4 Urgent
Comment: ADD ON
Troponin I Urgent
09/24/24 Dinner
2000 calorie (17 carb) Diabetic
Diabetic Diet: Sodium, 2 Gram
09/24/24 16:13
Furosemide [Lasix] 40 mg IV NOW STA
09/24/24 16:23
Amiodarone [Pacerone] 400 mg PO NOW STA
09/24/24 16:58
Admit/Transfer Patient As Directed
Co-Sign Provider:
Level of Care: Inpatient admission
Assign to:: Telemetry
Physician / Group: Merlin
Diagnosis: CHF
Reason for Telemetry: Arrhythmia
Date to Stop Telemetry: 09/27/24
Time to Stop Telemetry: 11:00
Reason for Hospitalization: IV diuretics
Expected length of stay greater than two midnights?: Yes
ELOS- Estimated Length of Stay in days: 3
I certify the patient meets the requirements for IP care: Yes
PRN Pain Medication Management As Directed
May give lesser potent ordered pain med per pt: Yes
preference::
Protocol:: Medication orders for pain may be administered in a
manner that supports deferring to patient preference
when the pt is:
- Requesting an ordered lesser potent pain medication.
Least to most potent pain medications are defined
as: acetaminophen < NSAID < tramadol < opioids
(morphine, oxycodone, hydromorphone).
- Requesting a lesser dose of the same medication IF
ORDERED.
- Requesting a less intrusive route of administration
if both routes are prescribed by the provider (PO <
IV).
09/24/24 17:06
Code Status As Directed
Resuscitation Status: Full Code
09/24/24 19:22
Famotidine [Pepcid] 40 mg PO HSPRN PRN
09/24/24 19:22
CARDIOLOGY CONSULT Routine
Consulting Provider: Marysol Corral
Was physician already notified: Yes
HF DIETARY CONSULT Routine
HF EDUCATOR CONSULT Routine
Comment:
Activity As Directed
Activity Level: Out of Bed-Early Mobility
Intake/ Output As Directed
Frequency: Per unit guidelines
Patient Education As Directed
Type: CHF folder
Comment: give on admission. Document in Interdisciplinary Education record
Sleep Apnea Assessment by RN As Directed
Comment:
Physician Instructions:
Vital Signs As Directed
Frequency: Other
Additional Instructions:: Q12 or per unit guidelines if more frequent.
Weight As Directed
Frequency: Daily
Type of Scale: Standing Scale
Comment: Daily morning weight. If unable to stand, use balanced bed scale.
Weight As Directed
Frequency: Once
Type of Scale: Standing Scale
Comment: Upon Admission. If unable to stand, use balanced bed scale.
Cpap [RESP] Routine
Patient to use own unit?: Yes
Pulse Ox/cont/shift [RESP] Routine
Quantity: 1
Special Instructions: Daily pulse oximetry at rest. If greater than 92% at rest also obtain pulse oximetry
while ambulating as tolerated.
09/24/24 20:00
Apixaban [Eliquis] 5 mg PO BID
Losartan [Cozaar] 50 mg PO BID
Pantoprazole [Protonix] 40 mg PO QPM
09/24/24 22:00
Amiodarone [Pacerone] 400 mg PO TID
09/25/24 06:00
Basic Metabolic Panel IN AM
Complete Blood Count/No Diff IN AM
Magnesium IN AM
09/25/24 08:00
Budesonide [Pulmicort] 0.5 mg INH R DAILY
Furosemide [Lasix] 40 mg IV DAILY
vibegron [Gemtesa] 75 mg PO DAILY
09/25/24 12:00
Metoprolol Xl [Toprol Xl] 50 mg PO NOON
09/26/24 06:00
Basic Metabolic Panel IN AM
09/27/24 06:00
Basic Metabolic Panel IN AM
09/27/24 11:00
DC Protocol for Telemetry ONCE
Abnormal Lab Results
09/24/24
13:24
Absolute Monos (auto) 0.7 H 10^3/uL
(0.1-0.6)
Lymphocytes % 19.5 L %
(20.5-51.1)
Glucose 124 H mg/dl
(70-99)
Alkaline Phosphatase 134 H U/L
(38-126)
TSH (Reflex) 0.12 L uIU/ml
(0.47-4.68)
09/24/24 13:24
09/24/24 13:24
Vital Signs
Initial and Last Documented VS:
Initial Vital Signs
Temp Pulse Resp BP Pulse Ox
97.9 F 104 20 176/113 95
09/24/24 13:03 09/24/24 13:03 09/24/24 13:03 09/24/24 13:03 09/24/24 13:03
Last Documented Vital Signs
Temp Pulse Resp BP Pulse Ox
97.5 F 89 20 123/78 96
09/24/24 20:12 09/24/24 20:12 09/24/24 20:12 09/24/24 20:12 09/24/24 20:12
<Obey Boogie Jr., PA-C - Last Filed: 09/24/24 16:24>
MDM/Problems Addressed
MDM/Problems Addressed:
78-year-old female presenting to the emergency department concerns of heart failure. Shortness of breath generalized fatigue worsening recently as well as a 10 pound weight gain. Patient was seen by cardiology this morning they are recommending IV
diuresis and amiodarone.
<Obey Boogie Jr., PA-C - Last Filed: 09/24/24 16:24>
*Critical Care Note
Total Time (30-74mins, 75-104mins- exclusive of procedures): Not Applicable
ED Attending Note
<Essie Moore PA-C - Last Filed: 09/24/24 20:33>
-
Portions of this chart may have been created with voice recognition software.� Occasional wrong word or��sound alike� substitutions may have occurred due to the inherent limitations of voice recognition software.
Discharge Plan
Departure
Patient Disposition: Admit
Date of Disposition: 09/24/24
Time of Disposition: 16:24
Admit to: Telemetry
Admit to doctor: Merlin
Presentation/result/management discussed w/ accepting MD/DO: Hospitalist
Patient with high blood pressure during this ER visit?: No
Condition: Good
Covid-19: Not Applicable
Discharge Problem:
Heart failure, Atrial fibrillation
Interventions
Interventions:
*Risk Screen - Suicide Last Done: 09/24/24 13:03
*General Assessment Last Done: 09/24/24 13:03
*Neglect/Abuse Screening Last Done: 09/24/24 16:04
ED- Fall Risk Assessment Last Done: 09/24/24 17:02
*ED COVID-19 Vaccine History Last Done: 09/24/24 13:03
*Nursing Disposition Last Done: 09/24/24 19:14
ED- Pulmonary Assessment Last Done: 09/24/24 17:06
ED- Cardiac Assessment Last Done: 09/24/24 17:06
Discharge Date and Time
Discharge Date/Time: 09/24/24 19:14
[2024-09-24 13:30] LABS: % Eosinophils 1.4 % (0-6); % Immature Granulocytes 0.4 % (0-0.5); % Lymphocytes 19.5 % (20.5-51.1); % Monocytes 8.5 % (1.7-9.3); % Neutrophils 69.2 % (42.2-75.2); Absolute Basophils 0.1 10^3/uL (0-0.2); Absolute Eosinophils 0.1 10^3/uL (0-0.7); Absolute Lymphocytes 1.5 10^3/uL (1.2-3.4); Absolute Monocytes 0.7 10^3/uL (0.1-0.6); Absolute Neutrophils 5.4 10^3/uL (1.4-6.5); Hematocrit 39.7 % (37.0-47.0); Hemoglobin 13.2 g/dL (12.0-16.0); Mean Corp Hgb Conc. 33.2 g/dL (33.0-37.0); Mean Corpuscular Hgb 27.8 pg (27.0-31.0); Mean Corpuscular Volume 83.8 fL (81.0-99.0); Mean Platelet Volume 8.9 fL (7.4-10.4); Nucleated Red Blood Cells % 0 %; Platelet Count 239 10^3/uL (130-400); Red Blood Cell Count 4.74 10^6/uL (4.20-5.40); White Blood Cell Count 7.9 10^3/uL (4.8-10.8)
[2024-09-24 13:52] LABS: ALT (SGPT) 28 U/L (0-35); AST (SGOT) 32 U/L (14-36); Albumin 4.2 g/dl (3.5-5.0); Alkaline Phosphatase 134 U/L (38-126); Blood Urea Nitrogen 13 mg/dl (7-17); Calcium 8.9 mg/dl (8.4-10.2); Carbon Dioxide 24 mmol/L (22-30); Chloride 102 mmol/L (98-107); Glucose 124 mg/dl (70-99); Sodium 135 mmol/L (135-145); Total Bilirubin 0.4 mg/dl (0.2-1.3); Total Protein 7.1 g/dl (6.3-8.2); eGFR > 60.00
[2024-09-24 13:54] LABS: NT-proBNP 662 pg/ml; Troponin I < 0.012 ng/ml
--- NOTE | 2024-09-24 16:29 | HPS.HSE ---
Family Physician
-
Family Physician: Crystal Saunders MD
Chief Complaint
-
Lower Extremity Edema and Weight Gain
History of Present Illness
Patient is a 78 y/o female past medical history of CHF, A-fib, HTN, DM, COPD, MINOR and Obesity who presents with increasing lower extremity edema and weight gain. Patient reports she has gained about 20 lbs in the last week, noting she was about 314
at her PCPs office last week but 334lb in ED today. She reports increasing lower extremity edema. She reports ongoing dyspnea on exertion. She does not weigh herself on a daily basis, and does not follow a low sodium diet. She notes consuming an
increased about of packaged soups recently. She reports intermittent palpitations related to her a-fib and had an unsuccessful cardioversion in early . She denies any chest pain.
Medical History
Past Medical History
Past Medical History: Reports Other
Additional Past Medical History:
Chronic HFpEF
Persistent Atrial Fibrillation
Essential Hypertension
Hyperlipidemia
Diabetes Mellitus, Type II
COPD
GERD
Overactive Bladder
Obstructive Sleep Apnea
Morbid Obesity due Excess Calories
Chronic Lower Extremity Lymphedema
Endometrial Cancer
Past Surgical History: Reports Other
Additional Past Surgical History:
Hysterectomy
Temporal Artery Biopsy
Social History
Tobacco: Non-smoker
Personal:
Living: With Family
Family History
Family History: Not pertinent
Allergies / Home Medications
Allergies reflects when Allergies were last updated in [employer].
Home Medications with original date entered in [employer]
Allergy/Medication List:
Allergies
Allergy/AdvReac Type Severity Reaction Status Date / Time
acetaminophen [From Tylenol] Allergy Unknown Verified 09/24/24 13:06
aspartame Allergy Unknown Verified 09/24/24 13:06
aspirin Allergy gi Verified 09/24/24 13:06
discomfort
betamethasone dipropionate Allergy Rash Verified 09/24/24 13:06
[From Lotrisone]
cefuroxime Allergy Itching Verified 09/24/24 13:06
celecoxib Allergy Nausea / Verified 09/24/24 13:06
Vomiting
ciprofloxacin Allergy Nausea / Verified 09/24/24 13:06
Vomiting
clotrimazole [From Lotrisone] Allergy Rash Verified 09/24/24 13:06
doxycycline Allergy Unknown Verified 09/24/24 13:06
duloxetine [From Cymbalta] Allergy Unknown Verified 09/24/24 13:06
fluconazole Allergy Unknown Verified 09/24/24 13:06
hydrocodone [From Vicodin] Allergy Unknown Verified 09/24/24 13:06
prednisone Allergy Unknown Verified 09/24/24 13:06
rofecoxib [From Vioxx] Allergy tinnitus Verified 09/24/24 13:06
Lbkjnav-NUO-WmP Reductase Allergy muscle Verified 09/24/24 13:06
Inhibitor spasms
[Nmrdhyn-Ptn-Vgq Reductase
Inhibitor]
sulfamethoxazole Allergy Unknown Verified 09/24/24 13:06
[From Bactrim]
trimethoprim [From Bactrim] Allergy Unknown Verified 09/24/24 13:06
ANESTHESIA MEDICATIONS Allergy Unknown Uncoded 09/24/24 13:06
Home Medications
alpha lipoic acid 100 mg capsule 200 mg PO MOTH Supplement 10/13/13
fluticasone propionate 50 mcg/actuation nasal spray,suspension 2 spray intranasal DAILYPRN PRN alleriges 10/13/13
ascorbic acid (vitamin C) 500 mg tablet (Vitamin C) 500 mg PO MOWE Supplement 12/31/22
calcium 500 mg (as carbonate)-vitamin D3 5 mcg (200 unit) tablet (Calcium 500 + D) 1 tab PO MOTUWETHFR Supplement 12/31/22
calcium polycarbophil 625 mg tablet (Fiber (calcium polycarbophil)) 625 mg PO DAILY Supplement 12/31/22
cholecalciferol (vitamin D3) 10 mcg (400 unit) tablet (Vitamin D3) 10 mcg PO MOTUWETHFR 12/31/22
cholecalciferol (vitamin D3) 25 mcg (1,000 unit) tablet (Vitamin D3) 25 mcg PO SUSA take with 25mcg 12/31/22
cyanocobalamin (vitamin B-12) 500 mcg tablet (Vitamin B-12) 500 mcg PO DAILY Supplement 12/31/22
metoprolol succinate 50 mg tablet,extended release 24 hr (Toprol XL) 50 mg PO NOON Blood pressure 12/31/22
omega-3 acid ethyl esters 1 gram capsule (Lovaza) 1 cap PO DAILY Supplement 12/31/22
omeprazole 20 mg capsule,delayed release 20 mg PO QPM Gastrointestinal issue 12/31/22
pyridoxine (vitamin B6) 100 mg tablet (Vitamin B-6) 100 mg PO MOWEFR Supplement 12/31/22
vibegron 75 mg tablet (Gemtesa) 75 mg PO DAILY Urinary issue 12/31/22
coQ10 (ubiquinol) 100 mg capsule 100 mg PO DAILY Supplement 01/01/23
therapeutic multivitamin 1 tab PO DAILY Supplement 01/01/23
albuterol sulfate 90 mcg/actuation aerosol inhaler 2 puff inhalation R Q4HPRN PRN sob #6.7 grams 01/06/23
losartan 50 mg tablet 50 mg PO BID #60 tabs 01/06/23
Reclast 1 dose IV [id number] 01/10/24
biotin 10,000 mcg chewable tablet (Hair, Skin and Nails (biotin)) 10,000 mcg PO DAILY Supplement 01/10/24
guaifenesin 600 mg tablet, extended release 12 hr (Mucinex) 600 mg PO [id number] PRN cough 01/10/24
apixaban 5 mg tablet (Eliquis) 5 mg PO BID 08/11/24
budesonide 0.5 mg/2 mL suspension for nebulization 0.5 mg inhalation R DAILY 09/24/24
famotidine 40 mg tablet 40 mg PO HSPRN PRN gerd 09/24/24
furosemide 20 mg tablet 20 mg PO DAILY 12/18/24
lidocaine 5 % topical patch 1 patch topical DAILY lower back 09/24/24
metronidazole 1 % topical cream 1 applic topical DAILYPRN PRN rosacea 09/24/24
Review of Systems
-
A 12 point ROS was completed and negative except as noted: Yes
Constitutional: Denies Fever or Chills
Respiratory: Reports Trouble Breathing; Denies Cough
Cardiac: Reports Palpitations; Denies Chest Pain
Physical Exam
Vital Signs
Vital Signs
Temp Pulse Resp BP Pulse Ox
97.9 F 104 20 176/113 95
09/24/24 13:03 09/24/24 13:03 09/24/24 13:03 09/24/24 13:03 09/24/24 13:03
Physical Exam
General: Well Developed, Well Nourished, Conversant and Morbidly Obese
HEENT: Anicteric and Moist mucous membranes
Respiratory: Clear and Non Labored Respirations
Cardiac: S1/S2 and Irregular Rhythm; No Tachycardia
GI: Soft, Non Tender and Other (Protuberant)
Rectal: Deferred by Provider
Musculoskeletal: No Clubbing, No Cyanosis and Other (+4 pitting edema bilateral lower extremitites)
Skin: Warm and Dry
Neuro: Awake, Alert, Oriented and Nonfocal/grossly intact
Psych: Calm
Laboratory Results
-
09/24/24 13:24
09/24/24 13:24
Laboratory Results
Total Bilirubin 0.4 mg/dl (0.2-1.3) 09/24/24 13:24
AST 32 U/L (14-36) 09/24/24 13:24
ALT 28 U/L (0-35) 09/24/24 13:24
Alkaline Phosphatase 134 U/L (38-126) H 09/24/24 13:24
Troponin I < 0.012 ng/ml 09/24/24 13:24
Data Reviewed
-
Diagnostic Radiology: Report Reviewed by me
Lab Data: Labs Reviewed by me
Old Records: Reviewed
Impression/Plan
-
Acute on Chronic HFpEF
-Consult Cardiology
-Echo January 2024: Mild concentric left ventricular hypertrophy. Normal left ventricular systolic function. LV ejection fraction is 60-65%
-Continue Lasix 40mg IV Daily
-Monitor Is&Os and Daily Weights
-Consult heart failure educator and dietary for low sodium diet education
Persistent Atrial Fibrillation
-Patient had unsuccessful cardioversion on 08/11/2024
-Cardiology recommending amiodarone 400mg TID
-Continue metoprolol for rate control
-Continue Eliquis for anticoagulation
Essential Hypertension
-Continue losartan and metoprolol with hold parameters
Diabetes Mellitus, Type II
-HgbA1c 6.3 on 09/10/2024
-Continue diabetic diet
COPD, no acute exacerbation
-Continue budesonide
GERD
-Continue Pepcid and Protonix
Obstructive Sleep Apnea
-Family will bring patient's own CPAP from home
Morbid Obesity due Excess Calories
-Affects all aspects of care
DVT Proph: Eliquis
Code Status: Full Code
[2024-09-24 17:02] VITALS: BMI 57.4
[2024-09-24 17:09] VITALS: BP 156/85
[2024-09-24] MEDS: PACERONE 400 MG PO ×2 (17:09→21:01)
[2024-09-24] MEDS: LASIX 40 MG IV (17:14)
--- NOTE | 2024-09-24 17:33 | W.PN.UPDATE ---
Update Note
Progress Note Update
This is an addendum to the H&P written by Romy Baron on 09/24/2024. Patient seen and examined independently with PA.
78-year-old female past medical history of persistent A-fib on Eliquis, HFpEF, COPD, obstructive sleep apnea, hypertension, diabetes, hyperlipidemia, endometrial cancer, chronic lower extremity edema, GERD, overactive bladder, obesity, presenting
with shortness of breath, edema and weight gain as well as symptoms of palpitations.
She underwent cardioversion for A-fib in August without success.
Patient in A-fib with heart rates up to 113. Labs unremarkable. Cardiac BNP of 660 from 67. Chest x-ray unremarkable.
Presentation consistent with acute on chronic HFpEF exacerbation likely exacerbated by persistent A-fib. Lasix IV. Cardiology recommended starting amiodarone.
--- NOTE | 2024-09-24 17:49 | W.PN.CARDCBS ---
Addendum entered and electronically signed by Marysol Corral MD 09/25/24 11:36:
I saw and examined the patient.
The Yarn Winder's note was reviewed and I agree with the note.
Comment: Please see office note from yesterday.
Patient in the office with shortness of breath with minimal exertion in the setting of persistent atrial fibrillation with failed cardioversion 08/2024 and volume overload. Sent to the ER for admission with plan for IV diuresis and Hfpef treatment.
Amiodarone started hopefully will be able to cardiovert on Sunday successfully and will ask from guidance from electrophysiology. Patient may require cardioversion with water bottle technique. Although amiodarone does not decrease the
defibrillation threshold this may help maintain sinus rhythm if achieved.
Original Note:
Today's Communication / Plan
-
Amiodarone 400 mg TID
Lasix 40 mg IV daily, but likely increase to 40 mg IV BID tomorrow
Impression / Plan
-
PCP: Dr. Saunders
Cardiology: Dr. Marysol Corral
Impression:
Acute on chronic HFpEF
Persistent Afib with RVR
s/p unsuccessful CV 08/11/24
Chronic Eliquis OAC
HTN
Hyperlipidemia
COPD
MINOR
Chronic LE edema
Hyperglycemia
Obese
Echo 02/05/24: EF 60-65%, trace MR/AI, since echo 11/24/22, there is no significant change.
Plan:
-Patient was seen in the [facility] office today as a follow up to unsuccessful CV last month and was found to be in rapid Afib and acute HF and was referred to [facility] for admission. Patient's weight is up 5 lbs per her and LE edema present for
less than 1 week. Patient has been eating [employer] soups from the grocery store.
-ECG reviewed by me shows Afib with RVR.
-Reviewed plan for amiodarone 400 mg TID loading with patient, and another adult female family member. Reviewed how AAD therapy can help with CV and maintaining SR.
-Follow QTc on ECG
-Elizabeth has not missed any doses of Eliquis 5 mg BID
-Patient thinks weight is up 5 lbs, but suspect that number is higher. pro-BNP of 662 is falsely low due to obesity. Patient was taking Lasix 20 mg PO daily prior to admission and Lasix 40 mg IV daily currently ordered. Depending on overnight
diuresis would recommend increasing to Lasix 40 mg IV BID in AM.
-TFTs added
Progress Note - Liability Claims Adjuster
Subjective
Date of Service: September 24, 2024
SOB walking from bathroom
Objective
Labs:
09/24/24 13:24
09/24/24 13:24
Labs
Hgb 13.2 g/dL (12.0-16.0) 09/24/24 13:24
Hct 39.7 % (37.0-47.0) 09/24/24 13:24
Plt Count 239 10^3/uL (130-400) 09/24/24 13:24
Sodium 135 mmol/L (135-145) 09/24/24 13:24
Potassium 4.0 mmol/L (3.5-5.1) 09/24/24 13:24
BUN 13 mg/dl (7-17) 09/24/24 13:24
Creatinine 0.8 mg/dL (0.6-1.0) 09/24/24 13:24
Glucose 124 mg/dl (70-99) H 09/24/24 13:24
Troponins
09/24/24
13:24
Troponin I < 0.012
Vital Signs and I&O:
Vital Signs
Temp Pulse Resp BP Pulse Ox
97.9 F 113 20 156/85 96
09/24/24 13:03 09/24/24 17:09 09/24/24 17:00 09/24/24 17:09 09/24/24 17:00
Vital Signs
Temp Pulse Resp BP Pulse Ox
97.9 F 113 20 156/85 96
09/24/24 13:03 09/24/24 17:09 09/24/24 17:00 09/24/24 17:09 09/24/24 17:00
Physical Exam
Physical Exam
GEN: NAD. AAOx3
HEENT: mmm
LUNGS: Dyspneic with conversation. Diminished throughout
CV: Afib on tele. Irreg irreg, S1/S2, no murmur
ABD: soft, BS+, NT, ND
EXT: +2 B/L LE edema
NEURO: Gross non-focal
SKIN: No rash
[2024-09-24 19:06] LABS: TSH Reflex To Free T4 0.12 uIU/ml (0.47-4.68)
--- NOTE | 2024-09-24 19:45 | PTCARENOTE ---
Pt received from ED at 1930. Pt pleasant, AAOX3, VSS, absent of pain, and able to ambulate into room with walker. Pt receptive to room and call brand. Pt educated on importance of call brand usage, pt relays understanding and cooperation. Pt bed in
lowest position and call brand within reach. Will continue with current plan of care.
[2024-09-24 20:12] VITALS: BP 123/78
[2024-09-24 20:14] VITALS: BMI 55.5
[2024-09-24 20:37] VITALS: BMI 55.5
[2024-09-24 20:51] VITALS: BMI 55.5
[2024-09-24] MEDS: COZAAR 50 MG PO (21:01)
[2024-09-24] MEDS: PROTONIX 40 MG PO (21:01)
[2024-09-24] MEDS: ELIQUIS 5 MG PO (21:01)
[2024-09-24] MEDS: PEPCID 40 MG PO (23:23)
[2024-09-24 23:35] VITALS: BP 165/97
[2024-09-25 03:45] VITALS: BP 154/84
[2024-09-25 06:00] VITALS: BMI 55.5
[2024-09-25 07:00] VITALS: BP 136/102
[2024-09-25] MEDS: PULMICORT 0.5 MG INH (07:39)
[2024-09-25 08:37] LABS: Hematocrit 41.2 % (37.0-47.0); Hemoglobin 13.4 g/dL (12.0-16.0); Mean Corp Hgb Conc. 32.5 g/dL (33.0-37.0); Mean Corpuscular Hgb 27.6 pg (27.0-31.0); Mean Corpuscular Volume 84.8 fL (81.0-99.0); Mean Platelet Volume 9.3 fL (7.4-10.4); Platelet Count 269 10^3/uL (130-400); Red Blood Cell Count 4.86 10^6/uL (4.20-5.40); Red Cell Dist. Width 14.4 % (11.5-14.5); White Blood Cell Count 6.7 10^3/uL (4.8-10.8)
[2024-09-25] MEDS: PACERONE 400 MG PO ×3 (08:55→21:10)
[2024-09-25] MEDS: COZAAR 50 MG PO ×2 (08:56→20:16)
[2024-09-25] MEDS: ELIQUIS 5 MG PO ×2 (08:56→20:15)
[2024-09-25] MEDS: LASIX 40 MG IV ×2 (08:56→20:16)
[2024-09-25 09:14] LABS: Blood Urea Nitrogen 12 mg/dl (7-17); Carbon Dioxide 30 mmol/L (22-30); Chloride 100 mmol/L (98-107); Estimated Creatinine Clearance 76 ml/min; Glucose 120 mg/dl (70-99); Magnesium 2.4 mg/dl (1.6-2.3); Potassium 4.1 mmol/L (3.5-5.1); Sodium 138 mmol/L (135-145); eGFR > 60.00
[2024-09-25] MEDS: NON-FORMULARY ITEM 75 MG PO (11:36)
[2024-09-25 11:41] LABS: Glucose - Point of Care 169 mg/dl (70-99)
[2024-09-25 11:44] VITALS: BP 142/82
[2024-09-25] MEDS: TOPROL XL 50 MG PO (11:45)
[2024-09-25] MEDS: NOVOLOG FLEXPEN-LOW RESISTANCE 1 UNITS SC (11:51)
--- NOTE | 2024-09-25 11:53 | W.PN.HOSP.TC ---
Today's Communication/Plan
-
see PN
Assessment / Plan
Assessment / Plan
78yo F with PMHX of GERD, DM, HTN, COPD, HFpEF, Afib on eliquis s/p CV 08/11/24 (not successful) sent from office of due to 15lbs weight gain and SOB, as well as palpitations, managed for CHF exacerbation and poorly controlled
symptomatic Afib
A/P
#Acute on chronic HFpEF exacerbation
#Symptomatic Afib with RVR
Lasix, daily weight and I&O, follow electorlytes
Echo
Rate/rhythm control
Telemetry
Cardio consult: started Amiodarone, plan for CV on 09/29/24
proBNP 662
#Subclinical hyperthyroidism
Discuss with endocrinology
Outpatient repeated TFT in 2-3 weeks upon d/c
#DM type 2 with unspecified complications
Insulin SS, Accuchecks, DM diet, check HgbA1c
Managed with diet alone at home
#MINOR
on CPAP
cont
#GERD
#Essential HTN
#Urinary incontinence
#COPD, not in exacerbation
cont home meds
DVT ppx on Elqiuis
Full code
I have spent at least 54min reviewing chart, test results, communication with cosnultants and direct patient care
Anticipated Discharge: > 48 hours
Subjective/Interval History
-
Date of Service: September 25, 2024
Objective Data
-
Labs:
Laboratory Results
09/25/24
08:07
WBC 6.7
Hgb 13.4
Hct 41.2
Plt Count 269
Sodium 138
Potassium 4.1
Chloride 100
Carbon Dioxide 30
BUN 12
Creatinine 0.9
Glucose 120 H
Calcium 9.0
Vital Signs:
Vital Signs
Temp Pulse Resp BP Pulse Ox
97.7 F 100 18 142/82 94
09/25/24 07:00 09/25/24 11:45 09/25/24 11:44 09/25/24 11:45 09/25/24 07:00
I&O
09/24/24 09/25/24 09/26/24
06:59 06:59 06:59
Intake Total 960 / 960
Output Total 1125 / 1125 550 / 550
Balance -1125 / -1125 410 / 410
Review of Systems
-
History Source: Patient
All other systems: Reviewed and negative
Physical Exam
-
General: Morbidly Obese
HEENT: Normocephalic
Respiratory: Crackles
Cardiac: Irregular Rhythm and Tachycardic
GI: Soft, Nontender and Nondistended
Musculoskeletal: No Clubbing, No Cyanosis, Edema, Right Lower Extrem and Edema, Left Lower Extrem
Neuro: Awake, Alert, Oriented and AO x 3
Psych: Calm
--- NOTE | 2024-09-25 14:52 | W.PN.CARDCBS ---
Addendum entered and electronically signed by Luis Carlos Rivera MD 09/25/24 19:03:
I saw and examined the patient.
The Electric Golf Cart Repairer's note was reviewed and I agree with the note.
Comment:
GEN: No distress, awake, Ox3
HEENT: supple, anicteric, mmm
LUNGS: CTA, no wheezes/rales
CV: Irreg, S1/S2, 1/6 syst LSB, S3+
ABD: soft, BS+, NT/ND
EXT: ++ edema
NEURO: Gross non-focal
SKIN: No rash
Plan:
Continue diuresis. Weight is down over 10 pounds so far. Increase Lasix to 40 mg IV twice daily.
Continue amiodarone load 40 mg p.o. 3 times daily.
Will consider cardioversion in a.m. if patient continues to diurese well and feels better.
Will keep n.p.o.
Blood pressure remains marginal. Will consider adding spironolactone to Toprol and losartan.
Original Note:
Today's Communication / Plan
-
Increase lasix to 40mg BID
Continue amiodarone 400 mg TID
Continue Eliquis 5mg BID
Tentative plan for CV 09/29
Impression / Plan
-
PCP: Dr. Saunders
Cardiology: Dr. Marysol Corral
Impression:
Acute on chronic HFpEF
Persistent Afib with RVR
s/p unsuccessful CV 08/11/24
Chronic Eliquis OAC
HTN
Hyperlipidemia
COPD
MINOR
Chronic LE edema
Hyperglycemia
Obese
Echo 02/05/24: EF 60-65%, trace MR/AI, since echo 11/24/22, there is no significant change.
Plan:
-Patient was seen in the cardiology office 09/24 as a follow up to unsuccessful CV last month and was found to be in rapid Afib and acute HF and was referred to [facility] for admission.
-Started on IV lasix 40mg daily, however weight appears stable overnight. Will increase lasix to 40mg BID.
-Creat stable at 0.9.
-Continue to follow daily weights, I&Os
-CHF education.
-HR improved, however remains in afib on review of telemetry. Plan is to continue amiodarone 400mg TID while admitted and attempt CV tentatively Sunday, 09/29.
-QTc stable at 446 ms 09/24. Will repeat ECG in this AM.
-Continue Eliquis 5mg BID. Reports no missed doses.
-Continue losartan and Toprol.
Progress Note - Distributor Cleaner
Subjective
Date of Service: September 25, 2024
Still w/ some SOB and edema, however improved compared to yesterday.
Objective
Labs:
09/25/24 08:07
09/25/24 08:07
Labs
Hgb 13.4 g/dL (12.0-16.0) 09/25/24 08:07
Hct 41.2 % (37.0-47.0) 09/25/24 08:07
Plt Count 269 10^3/uL (130-400) 09/25/24 08:07
Sodium 138 mmol/L (135-145) 09/25/24 08:07
Potassium 4.1 mmol/L (3.5-5.1) 09/25/24 08:07
BUN 12 mg/dl (7-17) 09/25/24 08:07
Creatinine 0.9 mg/dL (0.6-1.0) 09/25/24 08:07
Glucose 120 mg/dl (70-99) H 09/25/24 08:07
Troponins
09/24/24
13:24
Troponin I < 0.012
Vital Signs and I&O:
Vital Signs
Temp Pulse Resp BP Pulse Ox
97.7 F 100 18 142/82 94
09/25/24 07:00 09/25/24 11:45 09/25/24 11:44 09/25/24 11:45 09/25/24 07:00
Vital Signs
Temp Pulse Resp BP Pulse Ox
97.7 F 100 18 142/82 94
09/25/24 07:00 09/25/24 11:45 09/25/24 11:44 09/25/24 11:45 09/25/24 07:00
Intake & Output
09/23/24 09/24/24 09/25/24 09/26/24
06:59 06:59 06:59 06:59
Intake Total 960 / 960
Output Total 1125 / 1125 550 / 550
Balance -1125 / -1125 410 / 410
Physical Exam
Physical Exam
GEN: NAD. AAOx3
HEENT: mmm
LUNGS: Diminished throughout
CV: Irreg irreg, S1/S2, no murmur
EXT: +2 B/L LE edema
NEURO: Gross non-focal
SKIN: Warm, dry, no rash
[2024-09-25 15:00] VITALS: BP 144/81
--- NOTE | 2024-09-25 15:39 | CM ---
manager employment reviewed patient's chart and met with patient and patient lives with her spouse in a split level home with no steps to enter, 4 steps and then 8 steps to bedroom. Patient reports she is independent with adl's and uses a cane or walker
with ambulation, patient also has a stair glide.
PCP: Crystal Saunders
Pharmacy: [facility]
Plan; To follow with patient to follow up with any needs at discharge, possible vn.
[2024-09-25 16:44] LABS: Glucose - Point of Care 99 mg/dl (70-99)
[2024-09-25] MEDS: NOVOLOG FLEXPEN-LOW RESISTANCE SC (16:44)
[2024-09-25] MEDS: PROTONIX 40 MG PO (17:00)
[2024-09-25 19:30] VITALS: BP 152/88
[2024-09-25] MEDS: PEPCID 40 MG PO (20:21)
[2024-09-25 20:42] LABS: Glucose - Point of Care 90 mg/dl (70-99)
[2024-09-25] MEDS: FIBERCON 625 MG PO (22:09)
[2024-09-25 23:30] VITALS: BP 152/94
[2024-09-26] VITALS (11 sets, daily range): BP systolic 110–198; BP diastolic 73–124; BMI 54.6
[2024-09-26 05:59] LABS: Glucose - Point of Care 111 mg/dl (70-99)
[2024-09-26] MEDS: NOVOLOG FLEXPEN-LOW RESISTANCE SC ×3 (06:01→18:33)
[2024-09-26 07:53] LABS: Glucose - Point of Care 108 mg/dl (70-99)
[2024-09-26] MEDS: NON-FORMULARY ITEM 75 MG PO (08:05)
[2024-09-26] MEDS: PACERONE 400 MG PO ×3 (08:06→21:56)
[2024-09-26] MEDS: ELIQUIS 5 MG PO ×2 (08:07→20:24)
[2024-09-26] MEDS: COZAAR 50 MG PO ×2 (08:07→20:23)
[2024-09-26] MEDS: PULMICORT 0.5 MG INH (08:15)
[2024-09-26] MEDS: LASIX 40 MG IV (08:29)
[2024-09-26] MEDS: COREG 12.5 MG PO ×2 (08:32→20:23)
[2024-09-26 08:57] LABS: ALT (SGPT) 27 U/L (0-35); AST (SGOT) 29 U/L (14-36); Alkaline Phosphatase 117 U/L (38-126); Blood Urea Nitrogen 15 mg/dl (7-17); Calcium 8.9 mg/dl (8.4-10.2); Carbon Dioxide 28 mmol/L (22-30); Chloride 99 mmol/L (98-107); Estimated Creatinine Clearance 67 ml/min; Glucose 107 mg/dl (70-99); Magnesium 2.4 mg/dl (1.6-2.3); Potassium 3.8 mmol/L (3.5-5.1); Sodium 136 mmol/L (135-145); Total Bilirubin 0.7 mg/dl (0.2-1.3); Total Protein 6.9 g/dl (6.3-8.2); eGFR 58.02
[2024-09-26] MEDS: LIDOCAINE 4% PATCH 1 PATCH TOPICAL (09:44)
--- NOTE | 2024-09-26 10:49 | W.PN.HOSP.TC ---
Today's Communication/Plan
-
Reached 10kg weight drop - with dizziness - switched to Lasix PO
Nausea most likely effect of diuresis and Amiodarone.
Pending CV
Check lipase
Assessment / Plan
Assessment / Plan
78yo F with PMHX of GERD, DM, HTN, COPD, HFpEF, Afib on eliquis s/p CV 08/11/24 (not successful) sent from office of due to 15lbs weight gain and SOB, as well as palpitations, managed for CHF exacerbation and poorly controlled
symptomatic Afib, planned for CV
A/P
#Acute on chronic HFpEF exacerbation
#Symptomatic Afib with RVR
Lasix, daily weight and I&O, follow electrolytes
Echo
Rate/rhythm control
Telemetry
Cardio consult: started Amiodarone, plan for CV on 09/29/24
proBNP 662
#Essential HTN
Poorly controlled
Switched toprol to Carvedilol
might need added meds later
#nausea, dizziness
LFT WNL
most likely 2/2 diuresis and Amio
#Subclinical hyperthyroidism
Discussed with endocrinology: Outpatient repeated TFT in 2-3 weeks upon d/c
#DM type 2 with unspecified complications
Insulin SS, Accuchecks, DM diet, check HgbA1c
Managed with diet alone at home
#MINOR
on CPAP
cont
#GERD
#Urinary incontinence
#COPD, not in exacerbation
cont home meds
DVT ppx on Elqiuis
Full code
I have spent at least 37min reviewing chart, test results, communication with cosnultants and direct patient care
Anticipated Discharge: > 48 hours
Subjective/Interval History
-
Date of Service: September 26, 2024
Objective Data
-
Labs:
Laboratory Results
09/26/24
06:52
Sodium 136
Potassium 3.8
Chloride 99
Carbon Dioxide 28
BUN 15
Creatinine 1.0
Glucose 107 H
Calcium 8.9
Total Bilirubin 0.7
AST 29
ALT 27
Alkaline Phosphatase 117
Vital Signs:
Vital Signs
Temp Pulse Resp BP Pulse Ox
97.4 F 104 18 134/98 98
09/26/24 07:10 09/26/24 09:07 09/26/24 07:10 09/26/24 09:07 09/26/24 07:10
I&O
09/25/24 09/26/24 09/27/24
06:59 06:59 06:59
Intake Total 960 / 960
Output Total 1125 / 1125 1150 / 1150 1500 / 1500
Balance -1125 / -1125 -190 / -190 -1500 / -1500
Review of Systems
-
History Source: Patient
All other systems: Reviewed and negative
Abdomen/GI: Reports Nausea; Denies Abdominal Pain
Neuro: Reports Dizzy
Physical Exam
-
General: No Apparent Distress
HEENT: Normocephalic
Respiratory: Clear to Auscultation
GI: Soft, Nontender and Nondistended
Skin: Warm
Neuro: Awake, Alert, Oriented and AO x 3
Psych: Calm
[2024-09-26 11:25] LABS: Lipase 142 U/L (23-300)
[2024-09-26 13:27] LABS: Glucose - Point of Care 105 mg/dl (70-99)
--- NOTE | 2024-09-26 13:33 | W.PN.CARDCBS ---
Addendum entered and electronically signed by Luis Carlos Rivera MD 09/26/24 17:33:
I saw and examined the patient.
The Armored Cable Machine Operator's note was reviewed and I agree with the note.
Comment:
GEN: No distress, awake, Ox3
HEENT: supple, anicteric, mmm
LUNGS: CTA, no wheezes/rales
CV: Irreg, S1/S2, 1/6 syst LSB, no gallop
ABD: soft, BS+, NT/ND
EXT: ++ edema
NEURO: Gross non-focal
SKIN: No rash
Plan:
Will continue diuresis with IV Lasix. Continue amiodarone 40 mg p.o. 3 times daily. QTc stable by EKG today. Continue Eliquis.
Plan is to proceed with cardioversion on Sunday after adequate amiodarone load and diuresis. Creatinine 1.0.
Blood pressure continues to be labile. Will continue Coreg and losartan for now.
Original Note:
Today's Communication / Plan
-
continue IV lasix
amiodarone 400mg TID
reassess QTc by EKG today
continue eliquis
CV Saturday 09/29
Impression / Plan
-
PCP: Dr. Saunders
Cardiology: Dr. Marysol Corral
Impression:
Acute on chronic HFpEF
Persistent Afib with RVR
s/p unsuccessful CV 08/11/24
Chronic Eliquis OAC
HTN
Hyperlipidemia
COPD
MINOR
Chronic LE edema
Hyperglycemia
Obese
Echo 02/05/24: EF 60-65%, trace MR/AI, since echo 11/24/22, there is no significant change.
Plan:
-Weights trending down on IV Lasix. Continue 40 mg IV twice daily. Cr stable. Prior to admission patient was on 20 mg p.o. daily.
-CHF education
-Remains in atrial fibrillation on review of telemetry. She had unsuccessful cardioversion 08/11/2024. Continue amiodarone loading with 400 mg 3 times daily. Plan for cardioversion Saturday 09/29. Repeat EKG today to reassess QTc
-Continue Eliquis 5mg BID. Reports no missed doses.
-Continue losartan and coreg.
-could consider addition of SGLT2 inhibitor
Progress Note - Solar Pv Installer
Subjective
Date of Service: September 26, 2024
no issues overnight noted. good response to lasix thus far
Objective
Labs:
09/25/24 08:07
09/26/24 06:52
Labs
Hgb 13.4 g/dL (12.0-16.0) 09/25/24 08:07
Hct 41.2 % (37.0-47.0) 09/25/24 08:07
Plt Count 269 10^3/uL (130-400) 09/25/24 08:07
Sodium 136 mmol/L (135-145) 09/26/24 06:52
Potassium 3.8 mmol/L (3.5-5.1) 09/26/24 06:52
BUN 15 mg/dl (7-17) 09/26/24 06:52
Creatinine 1.0 mg/dL (0.6-1.0) 09/26/24 06:52
Glucose 107 mg/dl (70-99) H 09/26/24 06:52
Troponins
09/24/24
13:24
Troponin I < 0.012
Vital Signs and I&O:
Vital Signs
Temp Pulse Resp BP Pulse Ox
97.5 F 79 18 110/73 94
09/26/24 11:42 09/26/24 11:42 09/26/24 11:42 09/26/24 11:42 09/26/24 11:42
Vital Signs
Temp Pulse Resp BP Pulse Ox
97.5 F 79 18 110/73 94
09/26/24 11:42 09/26/24 11:42 09/26/24 11:42 09/26/24 11:42 09/26/24 11:42
Intake & Output
09/24/24 09/25/24 09/26/24 09/27/24
07:59 07:59 07:59 07:59
Intake Total 960 / 960
Output Total 1125 / 1125 2250 / 2250 400 / 400
Balance -1125 / -1125 -1290 / -1290 -400 / -400
--- NOTE | 2024-09-26 15:02 | CM ---
Chart reviewed and patient to return to home when stable.
Plan; Home with spouse when stable.
[2024-09-26 16:47] LABS: Glucose - Point of Care 81 mg/dl (70-99)
[2024-09-26] MEDS: PROTONIX 40 MG PO (18:33)
[2024-09-26 22:25] LABS: Glucose - Point of Care 119 mg/dl (70-99)
[2024-09-27 03:00] VITALS: BP 144/82
[2024-09-27 06:00] VITALS: BMI 54.5
[2024-09-27 07:10] LABS: % Eosinophils 1.7 % (0-6); % Immature Granulocytes 0.3 % (0-0.5); % Lymphocytes 24.6 % (20.5-51.1); % Monocytes 11.4 % (1.7-9.3); Absolute Basophils 0.1 10^3/uL (0-0.2); Absolute Eosinophils 0.1 10^3/uL (0-0.7); Absolute Lymphocytes 1.7 10^3/uL (1.2-3.4); Absolute Monocytes 0.8 10^3/uL (0.1-0.6); Absolute Neutrophils 4.3 10^3/uL (1.4-6.5); Hematocrit 38.6 % (37.0-47.0); Hemoglobin 12.7 g/dL (12.0-16.0); Mean Corp Hgb Conc. 32.9 g/dL (33.0-37.0); Mean Corpuscular Hgb 27.7 pg (27.0-31.0); Mean Corpuscular Volume 84.3 fL (81.0-99.0); Nucleated Red Blood Cells % 0 %; Platelet Count 241 10^3/uL (130-400); Red Blood Cell Count 4.58 10^6/uL (4.20-5.40); Red Cell Dist. Width 14.2 % (11.5-14.5)
[2024-09-27 07:34] VITALS: BP 170/93
[2024-09-27 07:35] LABS: ALT (SGPT) 26 U/L (0-35); AST (SGOT) 28 U/L (14-36); Albumin 3.8 g/dl (3.5-5.0); Alkaline Phosphatase 106 U/L (38-126); Blood Urea Nitrogen 23 mg/dl (7-17); Calcium 8.7 mg/dl (8.4-10.2); Carbon Dioxide 28 mmol/L (22-30); Chloride 100 mmol/L (98-107); Estimated Creatinine Clearance 67 ml/min; Glucose 112 mg/dl (70-99); Magnesium 2.4 mg/dl (1.6-2.3); Potassium 3.7 mmol/L (3.5-5.1); Sodium 135 mmol/L (135-145); Total Bilirubin 0.6 mg/dl (0.2-1.3); Total Protein 6.4 g/dl (6.3-8.2); eGFR 58.02
[2024-09-27] MEDS: PULMICORT 0.5 MG INH (08:00)
[2024-09-27 08:01] LABS: Glucose - Point of Care 104 mg/dl (70-99)
[2024-09-27] MEDS: NOVOLOG FLEXPEN-LOW RESISTANCE SC ×3 (08:34→17:41)
[2024-09-27] MEDS: LASIX 40 MG PO ×2 (10:50→16:30)
[2024-09-27] MEDS: COREG 12.5 MG PO (10:51)
[2024-09-27] MEDS: COZAAR 50 MG PO ×2 (10:51→19:58)
[2024-09-27] MEDS: PACERONE 400 MG PO ×3 (10:51→21:20)
[2024-09-27] MEDS: ELIQUIS 5 MG PO ×2 (10:52→19:57)
[2024-09-27] MEDS: NON-FORMULARY ITEM 75 MG PO (10:52)
[2024-09-27] MEDS: LIDOCAINE 4% PATCH 1 PATCH TOPICAL (10:52)
[2024-09-27 11:25] VITALS: BP 127/74
--- NOTE | 2024-09-27 12:32 | W.PN.HOSP.TC ---
Today's Communication/Plan
-
see bold
Assessment / Plan
Assessment / Plan
78yo F with PMHX of GERD, DM, HTN, COPD, HFpEF, Afib on eliquis s/p CV 08/11/24 (not successful) sent from office of due to 15lbs weight gain and SOB, as well as palpitations, managed for CHF exacerbation and poorly controlled
symptomatic Afib, planned for CV
Gen: NAD, AAOx3.
Eyes: EOMI, PERRLA, no scleral icterus.
Neck: supple.
CV: irreg/irreg, +S1/S2, no m/r/g.
Resp: CTAB, no rales, wheezes, or rhonchi.
Abd: +BS, soft, NT, ND
Skin: No rashes. 1-2+ B/L leg edema
Neuro: CN 2-12 intact, non-focal.
Psych: Normal mood and affect.
Acute on chronic HFpEF:
-cont Lasix (now PO)
-cont Coreg
-daily wts, I/Os
Symptomatic Afib with RVR:
-for CV 09/29/24
-check echo
-cont Amio/Coreg/Eliquis
Other problems'
Essential HTN: Cont Coreg
Subclinical hyperthyroidism: discussed with endo, repeat TFTs 2-3 weeks after d/c
DM2: diet controlled, SSI/accuchecks
MINOR: cont CPAP
GERD
Urinary incontinence
COPD, not in exacerbation
FULL/Eliquis
Anticipated Discharge: > 48 hours
Subjective/Interval History
-
Date of Service: September 27, 2024
Occasional twinges of chest pain. Denies SOB.
Objective Data
-
Labs:
Laboratory Results
09/27/24
06:20
WBC 7.0
Hgb 12.7
Hct 38.6
Plt Count 241
Sodium 135
Potassium 3.7
Chloride 100
Carbon Dioxide 28
BUN 23 H
Creatinine 1.0
Glucose 112 H
Calcium 8.7
Total Bilirubin 0.6
AST 28
ALT 26
Alkaline Phosphatase 106
Vital Signs:
Vital Signs
Temp Pulse Resp BP Pulse Ox
97.8 F 91 18 151/86 96
09/27/24 07:34 09/27/24 10:51 09/27/24 08:02 09/27/24 10:51 09/27/24 08:02
I&O
09/26/24 09/27/24 09/28/24
06:59 06:59 06:59
Intake Total 960 / 960 1560 / 1560
Output Total 1150 / 1150 3000 / 3000
Balance -190 / -190 -1440 / -1440
--- NOTE | 2024-09-27 12:34 | W.PN.CARDCBS ---
Today's Communication / Plan
-
Continue Lasix and Eliquis.
Continue amiodarone load. QT interval stable.
Plan for cardioversion Sunday.
Blood pressure elevated. Increase Coreg to 25 p.o. twice daily. Continue losartan
Impression / Plan
-
PCP: Dr. Saunders
Cardiology: Dr. Marysol Corral
Impression:
Acute on chronic HFpEF
Persistent Afib with RVR
s/p unsuccessful CV 08/11/24
Chronic Eliquis OAC
HTN
Hyperlipidemia
COPD
MINOR
Chronic LE edema
Hyperglycemia
Obese
Echo 02/05/24: EF 60-65%, trace MR/AI, since echo 11/24/22, there is no significant change.
Plan:
-Weights trending down on Lasix. Continue 40 mg po twice daily. Cr stable. Prior to admission patient was on 20 mg p.o. daily.
-CHF education
-Remains in atrial fibrillation on review of telemetry. She had unsuccessful cardioversion 08/11/2024. Continue amiodarone loading with 400 mg 3 times daily. Plan for cardioversion Saturday 09/29. Repeat EKG today to reassess QTc
-Continue Eliquis 5mg BID. Reports no missed doses.
-Continue losartan. BP elevated. Increase Coreg to 25 p.o. twice daily.
-could consider addition of SGLT2 inhibitor
Progress Note - Clinical Cytogeneticist
Subjective
Date of Service: September 27, 2024
She is improving. Weight is decreasing.
Objective
Labs:
09/27/24 06:20
09/27/24 06:20
Labs
Hgb 12.7 g/dL (12.0-16.0) 09/27/24 06:20
Hct 38.6 % (37.0-47.0) 09/27/24 06:20
Plt Count 241 10^3/uL (130-400) 09/27/24 06:20
Sodium 135 mmol/L (135-145) 09/27/24 06:20
Potassium 3.7 mmol/L (3.5-5.1) 09/27/24 06:20
BUN 23 mg/dl (7-17) H 09/27/24 06:20
Creatinine 1.0 mg/dL (0.6-1.0) 09/27/24 06:20
Glucose 112 mg/dl (70-99) H 09/27/24 06:20
Troponins
09/24/24
13:24
Troponin I < 0.012
Vital Signs and I&O:
Vital Signs
Temp Pulse Resp BP Pulse Ox
97.8 F 91 18 151/86 96
09/27/24 07:34 09/27/24 10:51 09/27/24 08:02 09/27/24 10:51 09/27/24 08:02
Vital Signs
Temp Pulse Resp BP Pulse Ox
97.8 F 91 18 151/86 96
09/27/24 07:34 09/27/24 10:51 09/27/24 08:02 09/27/24 10:51 09/27/24 08:02
Intake & Output
09/25/24 09/26/24 09/27/24 09/28/24
06:59 06:59 06:59 06:59
Intake Total 960 / 960 1560 / 1560
Output Total 1125 / 1125 1150 / 1150 3000 / 3000
Balance -1125 / -1125 -190 / -190 -1440 / -1440
Physical Exam
Physical Exam
GEN: No distress, awake, Ox3
HEENT: supple, anicteric, mmm
LUNGS: bilat rhonchi
CV: irreg, S1/S2, 1/6 syst LSB, no gallop
ABD: soft, BS+, NT/ND
EXT: No edema
NEURO: Gross non-focal
SKIN: No rash
[2024-09-27 12:39] LABS: Glucose - Point of Care 101 mg/dl (70-99)
[2024-09-27 14:35] LABS: Glycohemoglobin (HgbA1c) 6.2 % (4.0-5.6)
[2024-09-27 15:11] VITALS: BP 130/78
[2024-09-27] MEDS: FIBERCON 625 MG PO (16:28)
[2024-09-27 16:59] LABS: Glucose - Point of Care 94 mg/dl (70-99)
[2024-09-27] MEDS: PROTONIX 40 MG PO (18:12)
[2024-09-27 19:00] VITALS: BP 142/74
--- NOTE | 2024-09-27 19:14 | PTCARENOTE ---
Assumed care of pt from previous shift. Pt denies pain. Pt is on tele running afib. Pt call brand is within reach, pt rings dev.will cont to monitor.
[2024-09-27] MEDS: COREG 25 MG PO (19:57)
[2024-09-27 22:30] LABS: Glucose - Point of Care 109 mg/dl (70-99)
[2024-09-27 23:00] VITALS: BP 119/76
[2024-09-28] VITALS (7 sets, daily range): BP systolic 115–148; BP diastolic 62–90; BMI 54.3
--- NOTE | 2024-09-28 03:50 | PTCARENOTE ---
Patient c/o chest discomfort and dizziness. STAT EKG performed with no new findings from previous EKG. Vitals stable. Shortly after EKG performed patient states feels better. call box wirer P[employer]LING [employer] OPERATOR notified and made awre. No new orders than to monitor.
[2024-09-28 07:26] LABS: Glucose - Point of Care 104 mg/dl (70-99)
[2024-09-28] MEDS: NOVOLOG FLEXPEN-LOW RESISTANCE SC ×3 (07:56→17:00)
[2024-09-28 08:04] LABS: Troponin I < 0.012 ng/ml
[2024-09-28] MEDS: PULMICORT 0.5 MG INH (08:12)
[2024-09-28 08:22] LABS: Magnesium 2.4 mg/dl (1.6-2.3)
[2024-09-28] MEDS: LIDOCAINE 4% PATCH 1 PATCH TOPICAL (09:06)
[2024-09-28] MEDS: ELIQUIS 5 MG PO ×2 (09:06→17:04)
[2024-09-28] MEDS: NON-FORMULARY ITEM 75 MG PO (09:07)
[2024-09-28] MEDS: FIBERCON 625 MG PO (09:10)
[2024-09-28] MEDS: COREG 25 MG PO ×2 (09:14→20:23)
[2024-09-28] MEDS: LASIX 40 MG PO ×2 (09:15→16:55)
[2024-09-28] MEDS: PACERONE 400 MG PO ×3 (09:15→22:12)
[2024-09-28] MEDS: COZAAR PO (09:15)
--- NOTE | 2024-09-28 09:56 | W.PN.CARDCBS ---
Today's Communication / Plan
-
Continue amiodarone loading with 400 mg 3 times daily. Reduce Amiodarone to 200 mg BID next 24 hrs
-Plan for cardioversion Saturday 09/29.
-Repeat EKG Sep 28 to reassess QTc
Impression / Plan
-
.
PCP: Dr. Saunders
Cardiology: Dr. Marysol Corral
Impression:
Acute on chronic HFpEF
Persistent Afib with RVR
s/p unsuccessful CV 08/11/24
Chronic Eliquis OAC
HTN
Hyperlipidemia
COPD
MINOR
Chronic LE edema
Hyperglycemia
Obese
Echo 02/05/24: EF 60-65%, trace MR/AI, since echo 11/24/22, there is no significant change.
Plan:
-Weights trended down on Lasix.
-Continue 40 mg po twice daily.
-Cr stable. Prior to admission patient was on 20 mg p.o. daily.
-could consider addition of SGLT2 inhibitor
-Cont HF education
-Remains in atrial fibrillation on review of telemetry.
-She had unsuccessful cardioversion 08/11/2024.
-Continue amiodarone loading with 400 mg 3 times daily. Reduce Amiodarone to 200 mg BID next 24 hrs
-Plan for cardioversion Saturday 09/29.
-Repeat EKG Sep 28 to reassess QTc
-Continue Eliquis 5mg BID. Reports no missed doses.
-Continue losartan. Coreg was increased to 25 p.o. twice daily for better bp control.
Progress Note - Software Sales Manager
Subjective
Date of Service: September 28, 2024
Pt seen and examined. Complains of edema. Dizziness last night after urinating. Brief cp twinge, no recurrence. No shortness of breath.
Objective
Labs:
09/27/24 06:20
09/27/24 06:20
Labs
Hgb 12.7 g/dL (12.0-16.0) 09/27/24 06:20
Hct 38.6 % (37.0-47.0) 09/27/24 06:20
Plt Count 241 10^3/uL (130-400) 09/27/24 06:20
Sodium 135 mmol/L (135-145) 09/27/24 06:20
Potassium 3.7 mmol/L (3.5-5.1) 09/27/24 06:20
BUN 23 mg/dl (7-17) H 09/27/24 06:20
Creatinine 1.0 mg/dL (0.6-1.0) 09/27/24 06:20
Glucose 112 mg/dl (70-99) H 09/27/24 06:20
Troponins
09/28/24
07:07
Troponin I < 0.012
Vital Signs and I&O:
Vital Signs
Temp Pulse Resp BP Pulse Ox
97.4 F 81 18 117/78 97
09/28/24 07:25 09/28/24 09:15 09/28/24 07:25 09/28/24 09:15 09/28/24 07:25
Vital Signs
Temp Pulse Resp BP Pulse Ox
97.4 F 81 18 117/78 97
09/28/24 07:25 09/28/24 09:15 09/28/24 07:25 09/28/24 09:15 09/28/24 07:25
Intake & Output
09/26/24 09/27/24 09/28/24 09/29/24
06:59 06:59 06:59 06:59
Intake Total 960 / 960 1560 / 1560 2340 / 2340
Output Total 1150 / 1150 3000 / 3000 1150 / 1150 150 / 150
Balance -190 / -190 -1440 / -1440 1190 / 1190 -150 / -150
Physical Exam
Physical Exam
General: No acute distress, AAOX3
Neck: Negative JVD
Heart: Irregularly irregular, Negative S3 positive S1/S2, Negative S4, No murmur
Lungs: CTA b/l, negative wheezes/rales/rhonchi
Abd: Positive BS, NT/ND, neg rebound/rigidity/guarding
Ext: Negative cyanosis/clubbing/edema
Neuro: nonfocal
--- NOTE | 2024-09-28 12:12 | W.PN.HOSP.TC ---
Today's Communication/Plan
-
see bold
Assessment / Plan
Assessment / Plan
78yo F with PMHX of GERD, DM, HTN, COPD, HFpEF, Afib on eliquis s/p CV 08/11/24 (not successful) sent from office of due to 15lbs weight gain and SOB, as well as palpitations, managed for CHF exacerbation and poorly controlled
symptomatic Afib, planned for CV
Gen: NAD, AAOx3.
Eyes: EOMI, PERRLA, no scleral icterus.
Neck: supple.
CV: remains irreg/irreg, +S1/S2, no m/r/g.
Resp: remains CTAB, no rales, wheezes, or rhonchi.
Abd: +BS, soft, NT, ND
Skin: No rashes. 1-2+ B/L leg edema
Neuro: CN 2-12 intact, non-focal.
Psych: Normal mood and affect.
Acute on chronic HFpEF:
-cont Lasix (now PO)
-cont Coreg
-daily wts, I/Os
Symptomatic Afib with RVR:
-for CV 09/29/24
-check echo
-cont Amio/Coreg/Eliquis
Other problems:
Essential HTN: Cont Coreg
Subclinical hyperthyroidism: discussed with endo, repeat TFTs 2-3 weeks after d/c
DM2: diet controlled, SSI/accuchecks
MINOR: cont CPAP
GERD
Urinary incontinence
COPD, not in exacerbation
Morbid obesity due to excess calories
FULL/Eliquis
Anticipated Discharge: 24 - 48 hours
Subjective/Interval History
-
Date of Service: September 28, 2024
Denies shortness of breath or chest pain currently. Patient reports she had a 'zing' pain in her chest overnight that woke her up.
Objective Data
-
Vital Signs:
Vital Signs
Temp Pulse Resp BP Pulse Ox
97.7 F 87 20 115/71 95
09/28/24 11:18 09/28/24 11:18 09/28/24 11:18 09/28/24 11:18 09/28/24 11:18
I&O
09/27/24 09/28/24 09/29/24
06:59 06:59 06:59
Intake Total 1560 / 1560 2340 / 2340 480 / 480
Output Total 3000 / 3000 1150 / 1150 150 / 150
Balance -1440 / -1440 1190 / 1190 330 / 330
[2024-09-28 13:00] LABS: Glucose - Point of Care 140 mg/dl (70-99)
--- NOTE | 2024-09-28 14:55 | PTCARENOTE ---
Assumed care of pt from previous nurse. Pt denies pain. Pt is on tele running afib. No noted chest pain during shift. Pt call brand is within reach, pt rings dev. will cont to monitor.
[2024-09-28 16:37] LABS: Glucose - Point of Care 76 mg/dl (70-99)
[2024-09-28] MEDS: PROTONIX 40 MG PO (17:04)
[2024-09-28] MEDS: COZAAR 50 MG PO (20:22)
[2024-09-28 23:00] LABS: Glucose - Point of Care 107 mg/dl (70-99)
[2024-09-29 03:15] VITALS: BP 132/72
[2024-09-29 06:00] VITALS: BMI 54.2
[2024-09-29 06:13] LABS: Glucose - Point of Care 109 mg/dl (70-99)
[2024-09-29 07:25] VITALS: BMI 54.2
[2024-09-29] MEDS: PACERONE 400 MG PO ×2 (07:25→16:56)
[2024-09-29] MEDS: ELIQUIS 5 MG PO ×2 (07:26→19:54)
[2024-09-29 08:01] LABS: % Basophils 0.8 % (0-2); % Eosinophils 1.2 % (0-6); % Immature Granulocytes 0.3 % (0-0.5); % Lymphocytes 23.9 % (20.5-51.1); % Monocytes 10.3 % (1.7-9.3); % Neutrophils 63.5 % (42.2-75.2); Absolute Basophils 0.1 10^3/uL (0-0.2); Absolute Eosinophils 0.1 10^3/uL (0-0.7); Absolute Lymphocytes 1.8 10^3/uL (1.2-3.4); Absolute Monocytes 0.8 10^3/uL (0.1-0.6); Absolute Neutrophils 4.7 10^3/uL (1.4-6.5); Hematocrit 37.2 % (37.0-47.0); Hemoglobin 12.7 g/dL (12.0-16.0); Mean Corp Hgb Conc. 34.1 g/dL (33.0-37.0); Mean Corpuscular Hgb 28.2 pg (27.0-31.0); Mean Corpuscular Volume 82.5 fL (81.0-99.0); Mean Platelet Volume 9.4 fL (7.4-10.4); Nucleated Red Blood Cells % 0 %; Platelet Count 241 10^3/uL (130-400); Red Blood Cell Count 4.51 10^6/uL (4.20-5.40); Red Cell Dist. Width 14.1 % (11.5-14.5); White Blood Cell Count 7.4 10^3/uL (4.8-10.8)
[2024-09-29 08:30] LABS: Blood Urea Nitrogen 24 mg/dl (7-17); Calcium 8.7 mg/dl (8.4-10.2); Carbon Dioxide 30 mmol/L (22-30); Chloride 99 mmol/L (98-107); Estimated Creatinine Clearance 67 ml/min; Glucose 103 mg/dl (70-99); Potassium 3.9 mmol/L (3.5-5.1); Sodium 135 mmol/L (135-145); eGFR 58.02
--- NOTE | 2024-09-29 10:50 | W.PN.HOSP.TC ---
Today's Communication/Plan
-
see bold
Assessment / Plan
Assessment / Plan
78yo F with PMHX of GERD, DM, HTN, COPD, HFpEF, Afib on eliquis s/p CV 08/11/24 (not successful) sent from office of due to 15lbs weight gain and SOB, as well as palpitations, managed for CHF exacerbation and poorly controlled
symptomatic Afib, planned for CV
Gen: NAD, AAOx3.
Eyes: EOMI, PERRLA, no scleral icterus.
Neck: supple.
CV: Continues to remain irreg/irreg, +S1/S2, no m/r/g.
Resp: CTAB anteriorly, no rales, wheezes, or rhonchi.
Abd: remains +BS, soft, NT, ND
Skin: No rashes. 1-2+ B/L leg edema
Neuro: CN 2-12 intact, non-focal.
Psych: Normal mood and affect.
Acute on chronic HFpEF:
-cont Lasix (now PO)
-cont Coreg
-daily wts, I/Os
Symptomatic Afib with RVR:
-s/p unsuccessful CV 09/29/24
-check echo
-cont Amio/Coreg/Eliquis
Other problems:
Essential HTN: Cont Coreg
Subclinical hyperthyroidism: discussed with endo, repeat TFTs 2-3 weeks after d/c
DM2: diet controlled, SSI/accuchecks
MINOR: cont CPAP
GERD
Urinary incontinence
COPD, not in exacerbation
Morbid obesity due to excess calories
FULL/Eliquis
Anticipated Discharge: 24 - 48 hours
Subjective/Interval History
-
Date of Service: September 29, 2024
No new complaints.
Objective Data
-
Labs:
Laboratory Results
09/29/24
06:43
WBC 7.4
Hgb 12.7
Hct 37.2
Plt Count 241
Sodium 135
Potassium 3.9
Chloride 99
Carbon Dioxide 30
BUN 24 H
Creatinine 1.0
Glucose 103 H
Calcium 8.7
Vital Signs:
Vital Signs
Temp Pulse Resp BP Pulse Ox
97.5 F 89 18 135/85 97
09/29/24 03:15 09/29/24 07:25 09/29/24 03:15 09/29/24 07:25 09/29/24 03:15
I&O
09/28/24 09/29/24 09/30/24
06:59 06:59 06:59
Intake Total 2340 / 2340 1440 / 1440
Output Total 1150 / 1150 775 / 775
Balance 1190 / 1190 665 / 665
[2024-09-29 11:00] VITALS: BP 138/88
[2024-09-29] MEDS: LASIX PO (11:06)
[2024-09-29] MEDS: COREG 25 MG PO ×2 (11:08→19:53)
[2024-09-29] MEDS: COZAAR 50 MG PO ×2 (11:09→19:54)
[2024-09-29] MEDS: NON-FORMULARY ITEM 1 MG PO (11:10)
[2024-09-29] MEDS: LIDOCAINE 4% PATCH 1 PATCH TOPICAL (11:10)
[2024-09-29] MEDS: PULMICORT 0.5 MG INH (11:19)
--- NOTE | 2024-09-29 12:09 | CARDSERVLU ---
Echocardiogram with [facility] completed after protocol screening completed. Allergies verified.
Patent IV site: __left fa___
IV site flushed with 0.9% NaCl pre and post administration.
Diluted bolus method utilized to enhance visualization of ventricular kennedy.
Total volume given: ____2.5 mL
Patient tolerated all procedures well without complications.
[2024-09-29 12:55] LABS: Glucose - Point of Care 105 mg/dl (70-99)
[2024-09-29 15:00] VITALS: BP 107/80
--- NOTE | 2024-09-29 15:40 | CM ---
Patient seen bedside.
Patient requested home VN and PT.
TT to MD for PT eval.
Spouse will transport.
IMM completed.
Plan:home with [facility] when stable.
--- NOTE | 2024-09-29 16:16 | VNURNOTE ---
Home Health Liaison spoke with patient to discuss [facility] nurse/therapy, visits, schedule and homebound status. Patient is agreeable and understands that visits at home will be 2-3 x per week to assess and teach medical management. Patient is aware
that [facility] will contact them for start of care in 1-2 days after discharge from . [facility] referral completed in [facility].
[2024-09-29 16:27] VITALS: PULSE 72; O2SAT 96
--- NOTE | 2024-09-29 16:51 | W.PN.CARDCBS ---
Addendum entered and electronically signed by Chio Fry DO 09/29/24 17:47:
I saw and examined the patient.
The Community Organization Director's note was reviewed and I agree with the note.
Comment: Patient seen and examined before and after planned cardioversion. Reports shortness of breath and ongoing lower extremity edema. Cardioversion attempt at 200 J, 300 J and 360 J were unsuccessful at converting to sinus rhythm. No
immediate complications.
GEN: No distress, awake, Ox3, morbidly obese
HEENT: mmm
LUNGS: CTA, no wheezes/rales
CV: Irregularly irregular, S1/S2
ABD: soft, BS+, NT/ND
EXT: +2 bilateral lower extremity edema
Plan:
Acute heart failure with preserved ejection fraction
-Weights trending down on Lasix. Has lost at least 8 pounds since admission
-Will give a dose of IV Lasix post cardioversion attempt and then otherwise continue oral Lasix 40 mg twice daily.
-Consider outpatient addition of SGLT2 inhibitor
-Continue CPAP
-Remains in atrial fibrillation
-She had unsuccessful cardioversion 08/11/2024
-Attempted cardioversion once again 09/29/2024 which was unsuccessful orthodox of sinus rhythm despite amiodarone load
-Continue amiodarone for rate control but will reduce to 200 mg twice daily 09/29/24
-EKG with stable QTc 477 ms on 09/29/2024. Continue to monitor with amiodarone
-Continue Eliquis 5mg BID.
-Will need to consider EP consultation for EP ablation as outpatient
-Continue losartan. Coreg was increased to 25 p.o. twice daily for better bp control.
Original Note:
Today's Communication / Plan
-
Unsuccessful cardioversion 09/29/2023
Reduce amiodarone to 200 mg twice daily
Continue to monitor QTc
Continue increased dose of Coreg
Consider outpatient EP evaluation for PVI
Impression / Plan
-
.
PCP: Dr. Saunders
Cardiology: Dr. Marysol Corral
Impression:
Presented 09/24/2024 with worsening shortness of breath
Acute on chronic HFpEF, proBNP 662
Persistent Afib with RVR
s/p unsuccessful CV 08/11/24
Chronic Eliquis OAC
HTN
Hyperlipidemia
COPD
MINOR
Chronic LE edema
Hyperglycemia
Obese
Echo 09/29/2024: EF 74%. No significant valve disease, PAP 36 mmHg
Echo 02/05/24: EF 60-65%, trace MR/AI, since echo 11/24/22, there is no significant change.
Plan:
Acute heart failure with preserved ejection fraction
-Weights trending down on Lasix. Has lost at least 8 pounds since admission
-Continue 40 mg po twice daily.
-Cr stable. Prior to admission patient was on 20 mg p.o. daily. Likely would benefit from discharge home on 40 mg of Lasix
-could consider addition of SGLT2 inhibitor, although patient reports she has a history of incontinence with frequent urination which would put her at increased risk for genitourinary infection. Will hold on initiating at this time
-Echo as noted above with preserved ejection fraction and no significant valvular disease, PAP 36 mmHg
-Cont HF education
-Remains in atrial fibrillation
-She had unsuccessful cardioversion 08/11/2024.
-Attempted cardioversion once again 09/29/2024 which was unsuccessful orthodox of sinus rhythm despite amiodarone load
-Continue amiodarone for rate control but will reduce to 200 mg twice daily 09/29/24
-EKG with stable QTc 477 ms on 09/29/2024. Continue to monitor with amiodarone
-Continue Eliquis 5mg BID.
-Will need to consider EP consultation for EP ablation as outpatient
-Continue losartan. Coreg was increased to 25 p.o. twice daily for better bp control.
HPI 09/24/2024:
Patient in the office with shortness of breath with minimal exertion in the setting of persistent atrial fibrillation with failed cardioversion 08/2024 and volume overload. Sent to the ER for admission with plan for IV diuresis and Hfpef treatment.
Amiodarone started hopefully will be able to cardiovert on Sunday successfully and will ask from guidance from electrophysiology. Patient may require cardioversion with water bottle technique. Although amiodarone does not decrease the
defibrillation threshold this may help maintain sinus rhythm if achieved.
Progress Note - [employer]
Subjective
Date of Service: September 29, 2024
Patient seen and examined. Patient sitting up in chair reporting she feels less short of breath. Patient worked with PT today and was able to ambulate the hallway and perform stairs with some mild fatigue but did not feel as winded as she did
previously.
Objective
Labs:
09/29/24 06:43
09/29/24 06:43
Labs
Hgb 12.7 g/dL (12.0-16.0) 09/29/24 06:43
Hct 37.2 % (37.0-47.0) 09/29/24 06:43
Plt Count 241 10^3/uL (130-400) 09/29/24 06:43
Sodium 135 mmol/L (135-145) 09/29/24 06:43
Potassium 3.9 mmol/L (3.5-5.1) 09/29/24 06:43
BUN 24 mg/dl (7-17) H 09/29/24 06:43
Creatinine 1.0 mg/dL (0.6-1.0) 09/29/24 06:43
Glucose 103 mg/dl (70-99) H 09/29/24 06:43
Troponins
09/28/24
07:07
Troponin I < 0.012
Vital Signs and I&O:
Vital Signs
Temp Pulse Resp BP Pulse Ox
97.6 F 73 18 107/80 94
09/29/24 15:00 09/29/24 15:00 09/29/24 15:00 09/29/24 15:00 09/29/24 15:00
Vital Signs
Temp Pulse Resp BP Pulse Ox
97.6 F 73 18 107/80 94
09/29/24 15:00 09/29/24 15:00 09/29/24 15:00 09/29/24 15:00 09/29/24 15:00
Intake & Output
09/27/24 09/28/24 09/29/24 09/30/24
06:59 06:59 06:59 06:59
Intake Total 1560 / 1560 2340 / 2340 1440 / 1440
Output Total 3000 / 3000 1150 / 1150 775 / 775
Balance -1440 / -1440 1190 / 1190 665 / 665
Physical Exam
Physical Exam
GEN: No distress, awake, Ox3, morbidly obese
HEENT: supple, anicteric, mmm
LUNGS: CTA, no wheezes/rales
CV: Irregularly irregular, S1/S2, 1/6 syst LSB, no murmur
ABD: soft, BS+, NT/ND
EXT: +1 bilateral lower extremity edema, no clubbing or cyanosis
NEURO: Gross non-focal
SKIN: No rash
[2024-09-29] MEDS: PROTONIX 40 MG PO (16:56)
[2024-09-29] MEDS: LASIX 40 MG PO (16:57)
[2024-09-29 17:08] LABS: Glucose - Point of Care 87 mg/dl (70-99)
--- NOTE | 2024-09-29 17:37 | ITS.CL.CARDI ---
[facility] - Cardioversion
Cardioversion
Procedure Report:
Date of Procedure: 09/29/24
Procedure: Cardioversion
Indication: Symptomatic atrial fibrillation
Performing Physician: Chio Fry DO [facility]
Technique: The patient was brought to the holding area. Signed informed consent was obtained. A time out was called and performed. The patient was anesthetized by the anesthesia service. Anticoagulation status was reviewed and appropriate. R2 pads
were placed anteriorly and posteriorly. Three attempts to restore sinus rhythm at 200 J, 300 J and 360 J were unsuccessful to restored sinus rhythm. There were no complications.
Conclusion: Unsuccessful cardioversion
Recommendation: Routine post cardioversion care. Continue remote computer terminal operator anticoagulation.
[2024-09-29 19:35] VITALS: BP 143/81
[2024-09-29] MEDS: PACERONE 200 MG PO (19:54)
[2024-09-29 21:59] LABS: Glucose - Point of Care 116 mg/dl (70-99)
[2024-09-29 23:02] VITALS: BP 117/78
[2024-09-30 03:32] VITALS: BP 132/71
[2024-09-30 06:00] VITALS: BMI 54.0
[2024-09-30] MEDS: PULMICORT 0.5 MG INH (07:09)
[2024-09-30 07:20] VITALS: BP 149/98
[2024-09-30 07:23] LABS: Glucose - Point of Care 99 mg/dl (70-99)
[2024-09-30] MEDS: NON-FORMULARY ITEM 75 MG PO (08:20)
[2024-09-30] MEDS: LIDOCAINE 4% PATCH 1 PATCH TOPICAL (08:20)
[2024-09-30] MEDS: ELIQUIS 5 MG PO (08:20)
[2024-09-30] MEDS: PACERONE 200 MG PO (08:20)
[2024-09-30] MEDS: COZAAR 50 MG PO (08:20)
[2024-09-30] MEDS: COREG 25 MG PO (08:20)
[2024-09-30] MEDS: LASIX 40 MG IV (08:25)
[2024-09-30 09:30] VITALS: BP 146/88; BP 167/90; PULSE 80; O2SAT 96
--- NOTE | 2024-09-30 10:03 | CM ---
Chart reviewed and patient's plan is to return to home with [facility], cost of Farxiga is $65 per month and Jardiance is $68.74, per month per patient's insurance, at [phone], ID # [id number].
Plan; Home with [facility] when stable.
--- NOTE | 2024-09-30 10:57 | W.PN.CARDCBS ---
Addendum entered and electronically signed by Luis Carlos Rivera MD 09/30/24 14:24:
I saw and examined the patient.
The Donor Services Technician's note was reviewed and I agree with the note.
Comment:
GEN: No distress, awake, Ox3
HEENT: supple, anicteric, mmm
LUNGS: CTA, no wheezes/rales
CV: Irreg, S1/S2, 1/6 syst LSB, no murmur
ABD: soft, BS+, NT/ND
EXT: No edema
NEURO: Gross non-focal
SKIN: No rash
Plan:
Cardioversion failed yesterday. Will discharge on amiodarone 200 mg p.o. twice daily for 4 weeks and 200 mg daily.
Continue Coreg and lisinopril. Will discharge on Lasix 40 mg twice daily.
Continue Eliquis 5 mg p.o. twice daily.
She has diuresed well.
Will need to follow-up with electrophysiology to further discuss treatment options including ablation.
Original Note:
Today's Communication / Plan
-
Discharge home on increased dose of Lasix 40 mg twice daily
Continue carvedilol 25 mg twice a day and losartan 50 mg twice a day
Check BMP 7 to 10 days postdischarge (prescription placed on chart)
Discharge home on amiodarone 200 mg twice a day for 4 weeks then 200 mg after
Continue Eliquis 5 mg twice daily
Will need eventual outpatient EP evaluation
Outpatient cardiology follow-up has been arranged; d/c home with VN
Impression / Plan
-
.
PCP: Dr. Saunders
Cardiology: Dr. Marysol Corral
Impression:
Presented 09/24/2024 with worsening shortness of breath
Acute on chronic HFpEF, proBNP 662
Persistent Afib with RVR
s/p unsuccessful CV 08/11/24
Chronic Eliquis OAC
HTN
Hyperlipidemia
COPD
MINOR
Chronic LE edema
Hyperglycemia
Obese
Echo 09/29/2024: EF 74%. No significant valve disease, PAP 36 mmHg
Echo 02/05/24: EF 60-65%, trace MR/AI, since echo 11/24/22, there is no significant change.
Plan:
Acute heart failure with preserved ejection fraction
-Weights trending down on Lasix. Has lost at least 9-10 pounds since admission
-Continue 40 mg po twice daily. Still with some evidence of volume overload but continues to diurese and improve
-Cr stable. Likely would benefit from discharge home on 40 mg BID of Lasix.
-BMP 7 to 10 days postdischarge
-could consider addition of SGLT2 inhibitor, although patient reports she has a history of incontinence with frequent urination which would put her at increased risk for genitourinary infection. Will hold on initiating at this time
-Continue CPAP
-Echo as noted above with preserved ejection fraction and no significant valvular disease, PAP 36 mmHg
-Cont HF education
-Remains in atrial fibrillation
-She had unsuccessful cardioversion 08/11/2024.
-Attempted cardioversion once again 09/29/2024 which was unsuccessful cheondoism of sinus rhythm despite amiodarone load
-Continue amiodarone for rate control but reduced to 200 mg twice daily 09/29/24, continue amiodarone 200 mg twice a day for 4 weeks then once a day thereafter
-EKG with stable QTc 477 ms on 09/29/2024. Continue to monitor with amiodarone
-Continue Eliquis 5mg BID.
-Will need to consider EP consultation for EP ablation as outpatient
-Continue losartan. Coreg was increased to 25 p.o. twice daily for better bp control.
Outpatient cardiology has been arranged
HPI 09/24/2024:
Patient in the office with shortness of breath with minimal exertion in the setting of persistent atrial fibrillation with failed cardioversion 08/2024 and volume overload. Sent to the ER for admission with plan for IV diuresis and Hfpef treatment.
Amiodarone started hopefully will be able to cardiovert on Sunday successfully and will ask from guidance from electrophysiology. Patient may require cardioversion with water bottle technique. Although amiodarone does not decrease the
defibrillation threshold this may help maintain sinus rhythm if achieved.
Progress Note - Monorail Operator
Subjective
Date of Service: September 30, 2024
Patient seen and examined. Patient reports she is feeling well. She did experience some dizziness after walking with physical therapy which resolved after she was seated. Dizziness has resolved
Objective
Labs:
09/29/24 06:43
09/29/24 06:43
Labs
Hgb 12.7 g/dL (12.0-16.0) 09/29/24 06:43
Hct 37.2 % (37.0-47.0) 09/29/24 06:43
Plt Count 241 10^3/uL (130-400) 09/29/24 06:43
Sodium 135 mmol/L (135-145) 09/29/24 06:43
Potassium 3.9 mmol/L (3.5-5.1) 09/29/24 06:43
BUN 24 mg/dl (7-17) H 09/29/24 06:43
Creatinine 1.0 mg/dL (0.6-1.0) 09/29/24 06:43
Glucose 103 mg/dl (70-99) H 09/29/24 06:43
Troponins
09/28/24
07:07
Troponin I < 0.012
Vital Signs and I&O:
Vital Signs
Temp Pulse Resp BP Pulse Ox
97.7 F 78 16 144/85 99
09/30/24 07:20 09/30/24 08:20 09/30/24 07:20 09/30/24 08:20 09/30/24 07:20
Vital Signs
Temp Pulse Resp BP Pulse Ox
97.7 F 78 16 144/85 99
09/30/24 07:20 09/30/24 08:20 09/30/24 07:20 09/30/24 08:20 09/30/24 07:20
Intake & Output
09/28/24 09/29/24 09/30/24 10/01/24
06:59 06:59 06:59 06:59
Intake Total 2340 / 2340 1440 / 1440 960 / 960
Output Total 1150 / 1150 775 / 775 200 / 200
Balance 1190 / 1190 665 / 665 760 / 760
Physical Exam
Physical Exam
GEN: No distress, awake, Ox3, morbidly obese
HEENT: supple, anicteric, mmm
LUNGS: CTA, no wheezes/rales
CV: Irregularly irregular, S1/S2, 1/6 syst LSB, no murmur
ABD: soft, BS+, NT/ND
EXT: +1 bilateral lower extremity edema, no clubbing or cyanosis
NEURO: Gross non-focal
SKIN: No rash
[2024-09-30 12:17] LABS: Glucose - Point of Care 122 mg/dl (70-99)
--- NOTE | 2024-09-30 13:08 | W.PN.HOSP.TC ---
Today's Communication/Plan
-
d/c
Assessment / Plan
Assessment / Plan
78yo F with PMHX of GERD, DM, HTN, COPD, HFpEF, Afib on eliquis s/p CV 08/11/24 (not successful) sent from office of due to 15lbs weight gain and SOB, as well as palpitations, managed for CHF exacerbation and poorly controlled
symptomatic Afib, planned for CV
Gen: NAD, AAOx3.
Eyes: EOMI, PERRLA, no scleral icterus.
Neck: supple.
CV: irreg/irreg, +S1/S2, no m/r/g.
Resp: CTAB, no rales, wheezes, or rhonchi.
Abd: continues to remain +BS, soft, NT, ND
Skin: No rashes. 1-2+ B/L leg edema
Neuro: CN 2-12 intact, non-focal.
Psych: Normal mood and affect.
Echo: Normal left ventricular size, wall thickness and systolic function.
LV ejection fraction is 74% by Butcher's method of discs.
Diastolic function indeterminate due to atrial fibrillation.
Mitral valve opens normally.
Trace mitral regurgitation is seen.
No aortic regurgitation is seen.
Estimated pulmonary artery pressure of 36 mmHg, assuming a right atrial
pressure of 3 mmHg.
Normal pericardium without effusion.
The IVC is of normal size and demonstrates normal respiratory variation.
Acute on chronic HFpEF:
-cont Lasix (now PO)
-echo above
-cont Coreg
-daily wts, I/Os
Symptomatic Afib with RVR:
-s/p unsuccessful CV 09/29/24
-cont Amio/Coreg/Eliquis
Other problems:
Essential HTN: Cont Coreg
Subclinical hyperthyroidism: discussed with endo, repeat TFTs 2-3 weeks after d/c
DM2: diet controlled, SSI/accuchecks
MINOR: cont CPAP
GERD
Urinary incontinence
COPD, not in exacerbation
Morbid obesity due to excess calories
FULL/Eliquis
Medically cleared for discharge.
Total time spent on d/c = 31 min. This included today's physical exam, progress note, review of laboratory and diagnostic data, preparation of discharge documents and prescriptions, and discussions about the pt's hospital course and discharge plan
with the patient and other medical sales consultant involved in the patient's care.
Anticipated Discharge: Today
Subjective/Interval History
-
Date of Service: September 30, 2024
Denies chest pain or shortness of breath.
Objective Data
-
Vital Signs:
Vital Signs
Temp Pulse Resp BP Pulse Ox
97.7 F 78 16 144/85 97
09/30/24 07:20 09/30/24 08:20 09/30/24 07:20 09/30/24 08:20 09/30/24 08:20
I&O
09/29/24 09/30/24 10/01/24
06:59 06:59 06:59
Intake Total 1440 / 1440 960 / 960
Output Total 775 / 775 200 / 200
Balance 665 / 665 760 / 760
== END 2024-09-30 14:33 | disposition home health service (06) | DRG 291 ==
LOC: 4 WEST ACU 17:45
PROVIDERS: Emergency Medicine; Internal Medicine; Internal Medicine Cardiovascular Disease; Nurse Practitioner Family; Physician Assistant Medical; ADMITTING PHYSICIAN Hospitalist; ATTENDING PHYSICIAN Internal Medicine; EMERGENCY PHYSICIAN Student in an Organized Health Care Education/Training Program; FAMILY PHYSICIAN Emergency Medicine
PROC: 5A2204Z Restoration of Cardiac Rhythm, Single (ICD-10-PCS; 2024-09-29)
DX: I11.0 Hypertensive heart disease with heart failure (principal); I50.33 Acute on chronic diastolic (congestive) heart failure; I48.19 Other persistent atrial fibrillation; Z68.43 Body mass index [BMI] 50.0-59.9, adult; E66.01 Morbid (severe) obesity due to excess calories; E78.5 Hyperlipidemia, unspecified; J44.9 Chronic obstructive pulmonary disease, unspecified; G47.33 Obstructive sleep apnea (adult) (pediatric); K21.9 Gastro-esophageal reflux disease without esophagitis; E11.9 Type 2 diabetes mellitus without complications; R32 Unspecified urinary incontinence; Z79.84 Long term (current) use of oral hypoglycemic drugs; Z79.01 Long term (current) use of anticoagulants
CPT/HCPCS: 36415; 71046; 80048; 80053; 82306; 82550; 82962; 83036; 83690; 83735; 83880; 84439; 84443; 84484; 85025; 85027; 92960; 93005; 93306; 94640; 96374; 97116; 97162; 97530; 99285; Q9950

== ENCOUNTER 2025-01-08 07:44 | Day surgery (SDC) | payer MEDICARE, BC, SELFPAY ==
[2024-12-26 13:09] VITALS: BMI 57.0
[2025-01-08] VITALS (12 sets, daily range): BP systolic 107–159; BP diastolic 52–100; BMI 54.1
[2025-01-08 09:13] LABS: Glucose - Point of Care 90 mg/dl (70-99)
[2025-01-08 11:53] LABS: ACT-LR - POC 366 Seconds (116-155)
[2025-01-08 12:01] LABS: Glucose - Point of Care 97 mg/dl (70-99)
[2025-01-08 12:06] LABS: ACT-LR - POC 295 Seconds (116-155)
[2025-01-08 12:28] LABS: ACT-LR - POC 363 Seconds (116-155)
[2025-01-08 12:48] LABS: ACT-LR - POC 377 Seconds (116-155)
--- NOTE | 2025-01-08 13:48 | ITS.CL.ABL ---
Shirt Marker - Ablation
Ablation
Procedure Report:
ELECTROPHYSIOLOGIC STUDY AND POSSIBLE ABLATION
DATE: 01/08/25
Primary Care Provider: Dr Crystal Saunders
Primary Forest Supervisor: Dr Marysol Corral
INDICATION:
Symptomatic Atrial Fibrillation.
Persistent
Recurrences of atrial fibrillation have been associated with decompensated heart failure with preserved ejection fraction.
She continues to have recurrences of symptomatic atrial fibrillation despite antiarrhythmic drug therapy with amiodarone.
HISTORY: See H and P.
Symptomatic AF, poorly controlled with attempted medical therapy
HAS-BLED:
Age
CHADSVASc: 5
HFpEF
HTN
Age
F Gender
PRESENTING RHYTHM: AF
HISTORY: See H and P.
Symptomatic AF, poorly controlled with attempted medical therapy.
ANTIARRHYTHMIC DRUG: amiodarone
ANTICOAGULATION: apixaban
'TIME-OUT': called and confirmed.
SEDATION/ANESTHESIA: provided via the anesthesia department using general anesthesia.
PROCEDURE:
Ultrasound Guidance with real-time visualization of needle insertion and vessel patency performed by va for femoral venous Vascular Access.
Under real-time US guidance, the needle was advanced with negative pressure into the vein. The needle was seen entering the vessel lumen with a good return of dark red flow, the syringe was removed, non-pulsatile, dark red blood low was noted and
the wire was passed without difficulty, then the needle was removed. US confirmed the wire was in the vein, not going into an artery,
Images were taken and saved for the patient's permanent record. Imaging findings typical femoral venous anatomy. Direct visualization of needle puncture into the femoral vein was observed and recorded.
A decapolar CS catheter was placed within the CS for mapping and pacing.
The intracardiac ultrasound catheter was positioned in the RA for continuous intracardiac ultrasound imaging.
Heparin bolus and infusion to target ACT at 300 -350 seconds was administered. Transseptal puncture was performed. This entailed advancing a sheath with dilator into the superior vena cava and withdrawing both (monitoring intracardiac ultrasound,
fluoroscopy and tip pressure) with the tip oriented toward the atrial septum. The fossa ovalis was engaged (indicated by sudden displacement of the sheath tip as well as tenting of the fossa seen on intracardiac ultrasound).
The [employer] transseptal system was used. Left atrial catheter position was confirmed by echocardiographic imaging and fluoroscopy followed by RF delivery using the [employer] system resulting in successful LA access with pressure monitoring
demonstrating LA pressure waveforms (LA mean pressure 16 mm Hg). The sheath was advanced over the dilator and positioned in the left atrium.
The [employer] multipolar mapping catheter was initially positioned through the transseptal sheath for high density mapping.
Geometry and voltage mapping was performed using the [employer] multipolar grid catheter. Ensite-X was utilized for three-dimensional electroanatomical mapping.
A 3-D map was created using [employer]-X in Voxel mode. A 3-D reconstructed CT image was compared to the 3-D [employer] map to assist in anatomic evaluation, mapping and ablation.
The [employer] PFA catheter and system was used for cardiac ablation. Catheter positioning was guided and confirmed using both I.C.E. and fluoroscopy.
PV isolation approach was used to electrically isolate each PV ostia (LSPV, LIPV, RSPV, RIPV).
Additional energy applications/additional ablation set was required to accomplish wide area circumferential ablation around each of the pulmonary vein sets and additionally ablation to accomplish LA posterior wall ablation.
Remapping with the Garcia multipolar grid catheter lack of complete isolation around the right superior pulmonary vein and lack of full posterior wall isolation. Additional pulsed electric field ablation lesions were delivered until full electrical
isolation with entrance and exit block was demonstrated at the posterior wall of the left atrium and each of the 4 pulmonary veins. Then programmed electrical stimulation which included burst atrial pacing down to 280 ms and delivery of atrial
decremental extrastimuli down to atrial ERP failed to induce any sustained arrhythmias.
I.C.E. :
Pre-Ablation Post-Ablation
LVEF: 55 % 55 %
WMA: none none
Pericardial effusion: trace posterior trace posterior
COMPLICATIONS:
None
SUMMARY:
- Mapping and ablation to isolate the PVs
- Additional AF ablation set after PVI.
- 3-D Electroanatomical Mapping
- Intracardiac Ultrasound
- Ultrasound guidance for vascular access
Post ablation, I discussed today's findings and results with the patient's [id number], Sally.
RECOMMENDATIONS:
- Observe in monitored bed.
- Maintain oral anticoagulation.
- Discontinue amiodarone
- She has an office visit as scheduled with Lois Grover March 10, 2025
- Continue cardiovascular care with Dr Marysol Corral
Copy to:
Dr Crystal Saunders
Dr Marysol Corral
[2025-01-08] MEDS: COREG 25 MG PO (14:01)
[2025-01-08] MEDS: LASIX 40 MG IV (14:19)
[2025-01-08 14:26] LABS: Glucose - Point of Care 108 mg/dl (70-99)
--- NOTE | 2025-01-08 16:52 | W.PN.UPDATE ---
Update Note
Progress Note Update
79 yo WF s/p PVI (same day). She has mild sore throat, chest heaviness which has improved, denies sob, randall diet, voiding via purwick, EKG SR 1deg AVB, R fem site c/d/i, soft. She will resume Eliquis tonight at 7pm. We will stop Amiodarone. Her LA
pressure was 16 and we gave lasix 40iv x 1, she will resume home lasix. Activity restrictions reviewed. She will f/u DCA in 2 mo. She is for d/c home after 6pm if groin stable.
== END 2025-01-08 17:40 | disposition home or self-care (01) ==
LOC: CATH 07:44
PROVIDERS: ATTENDING PHYSICIAN Internal Medicine Cardiovascular Disease; FAMILY PHYSICIAN Emergency Medicine; OTHER PHYSICIAN Internal Medicine Cardiovascular Disease
DX: I48.19 Other persistent atrial fibrillation (principal); Z79.01 Long term (current) use of anticoagulants; Z79.899 Other long term (current) drug therapy; I50.32 Chronic diastolic (congestive) heart failure; I11.0 Hypertensive heart disease with heart failure; E78.5 Hyperlipidemia, unspecified; E66.01 Morbid (severe) obesity due to excess calories; Z68.43 Body mass index [BMI] 50.0-59.9, adult; E11.9 Type 2 diabetes mellitus without complications; Z79.84 Long term (current) use of oral hypoglycemic drugs; G47.33 Obstructive sleep apnea (adult) (pediatric); K21.9 Gastro-esophageal reflux disease without esophagitis; Z85.42 Personal history of malignant neoplasm of other parts of uterus; K63.89 Other specified diseases of intestine; K92.2 Gastrointestinal hemorrhage, unspecified; Z88.6 Allergy status to analgesic agent; Z88.4 Allergy status to anesthetic agent; Z88.3 Allergy status to other anti-infective agents; Z88.2 Allergy status to sulfonamides; Z88.1 Allergy status to other antibiotic agents; Z88.5 Allergy status to narcotic agent; Z88.8 Allergy status to other drugs, medicaments and biological substances; Z90.710 Acquired absence of both cervix and uterus; Z91.048 Other nonmedicinal substance allergy status
CPT/HCPCS: C1732; C1894; C1769; C1730; C1892; C1759; C1766; 76937; 82962; 85347; 86900; 86901; 93005; 93656; 93657; C1733

== ENCOUNTER → 2025-01-28 08:14 | Outpatient (REF) | payer MEDICARE, BC, SELFPAY ==
[2025-01-28 10:02] LABS: % Basophils 0.9 % (0-2); % Eosinophils 2.4 % (0-6); % Immature Granulocytes 0.2 % (0-0.5); % Lymphocytes 27.5 % (20.5-51.1); % Monocytes 8.8 % (1.7-9.3); % Neutrophils 60.2 % (42.2-75.2); Absolute Basophils 0.1 10^3/uL (0-0.2); Absolute Eosinophils 0.2 10^3/uL (0-0.7); Absolute Lymphocytes 1.8 10^3/uL (1.2-3.4); Absolute Monocytes 0.6 10^3/uL (0.1-0.6); Absolute Neutrophils 3.8 10^3/uL (1.4-6.5); Hematocrit 36.2 % (37.0-47.0); Hemoglobin 11.7 g/dL (12.0-16.0); Mean Corp Hgb Conc. 32.3 g/dL (33.0-37.0); Mean Corpuscular Hgb 28.2 pg (27.0-31.0); Mean Corpuscular Volume 87.2 fL (81.0-99.0); Mean Platelet Volume 9.3 fL (7.4-10.4); Nucleated Red Blood Cells % 0 %; Platelet Count 246 10^3/uL (130-400); Red Blood Cell Count 4.15 10^6/uL (4.20-5.40); Red Cell Dist. Width 14.4 % (11.5-14.5); White Blood Cell Count 6.4 10^3/uL (4.8-10.8)
[2025-01-28 10:58] LABS: Glycohemoglobin (HgbA1c) 5.9 % (4.0-5.6)
[2025-01-28 11:31] LABS: TSH Reflex To Free T4 3.34 uIU/ml (0.47-4.68)
[2025-01-28 11:37] LABS: ALT (SGPT) 31 U/L (0-35); AST (SGOT) 30 U/L (14-36); Albumin 3.9 g/dl (3.5-5.0); Alkaline Phosphatase 112 U/L (38-126); Blood Urea Nitrogen 12 mg/dl (7-17); Calcium 8.9 mg/dl (8.4-10.2); Carbon Dioxide 32 mmol/L (22-30); Chloride 100 mmol/L (98-107); Glucose 103 mg/dl (70-99); HDL Cholesterol 52 mg/dl; LDL Cholesterol, Calculated 187 mg/dl; Potassium 4.1 mmol/L (3.5-5.1); Sodium 142 mmol/L (135-145); Total Bilirubin 0.7 mg/dl (0.2-1.3); Total Cholesterol 267 mg/dl (50-199); Total Protein 6.7 g/dl (6.3-8.2); Triglyceride 144 mg/dl (10-149); Very Low Density Lipoprotein 28 mg/dl (0-30); eGFR 51.43
== END ==
LOC: HWLAB 08:14
PROVIDERS: ATTENDING PHYSICIAN Emergency Medicine
DX: E78.2 Mixed hyperlipidemia (principal); E66.01 Morbid (severe) obesity due to excess calories; E11.69 Type 2 diabetes mellitus with other specified complication
CPT/HCPCS: 36415; 80053; 80061; 83036; 84443; 85025

== ENCOUNTER → 2025-02-12 09:59 | Outpatient (REF) | payer MEDICARE, BC, SELFPAY | LOC: HWLAB 09:59 | PROVIDERS: ATTENDING PHYSICIAN Emergency Medicine | DX: R19.4 Change in bowel habit (principal) | CPT/HCPCS: 87045; 87046; 87324; 87427; 87449; 89055 ==

== ENCOUNTER → 2025-05-08 09:56 | Outpatient (REF) | payer MEDICARE, BC, SELFPAY ==
[2025-05-08 12:31] LABS: Hematocrit 37.1 % (37.0-47.0); Hemoglobin 12.0 g/dL (12.0-16.0); Mean Corp Hgb Conc. 32.3 g/dL (33.0-37.0); Mean Corpuscular Volume 85.9 fL (81.0-99.0); Nucleated Red Blood Cells % 0 %; Platelet Count 238 10^3/uL (130-400); Red Cell Dist. Width 13.9 % (11.5-14.5)
[2025-05-08 13:23] LABS: Blood Urea Nitrogen 14 mg/dl (7-17); Calcium 9.2 mg/dl (8.4-10.2); Carbon Dioxide 32 mmol/L (22-30); Chloride 103 mmol/L (98-107); Glucose 90 mg/dl (70-99); Potassium 4.3 mmol/L (3.5-5.1); Sodium 139 mmol/L (135-145); eGFR 57.66
[2025-05-08 13:34] LABS: Glycohemoglobin (HgbA1c) 6.0 % (4.0-5.6)
== END ==
LOC: HWLAB 09:56
PROVIDERS: ATTENDING PHYSICIAN Internal Medicine Rheumatology; FAMILY PHYSICIAN Emergency Medicine
DX: E11.69 Type 2 diabetes mellitus with other specified complication (principal); R79.89 Other specified abnormal findings of blood chemistry; D64.9 Anemia, unspecified; E55.9 Vitamin D deficiency, unspecified; M15.9 Polyosteoarthritis, unspecified; M79.7 Fibromyalgia; M81.0 Age-related osteoporosis without current pathological fracture; Z13.820 Encounter for screening for osteoporosis; Z68.43 Body mass index [BMI] 50.0-59.9, adult; Z79.899 Other long term (current) drug therapy
CPT/HCPCS: 36415; 80048; 83036; 85025

== ENCOUNTER → 2025-06-10 11:09 | Outpatient (REF) | payer MEDICARE, BC, SELFPAY | LOC: HWRAD 11:09 | PROVIDERS: ATTENDING PHYSICIAN Emergency Medicine | DX: M25.512 Pain in left shoulder (principal); M54.2 Cervicalgia | CPT/HCPCS: 72052; 73030 ==

== ENCOUNTER → 2025-06-24 12:51 | Outpatient (REF) | payer MEDICARE, BC, SELFPAY ==
[2025-06-24 17:52] LABS: Urine Character Slightly Cloudy (Clear)
[2025-06-24 18:27] LABS: Urine Squamous Cell >30 /LPF (Few)
== END ==
LOC: CLAB 12:51
PROVIDERS: ATTENDING PHYSICIAN Physician Assistant
DX: N39.0 Urinary tract infection, site not specified (principal)
CPT/HCPCS: 81003; 81015; 87086

== ENCOUNTER 2025-07-09 11:05 | Day surgery (SDC) | payer MEDICARE, BC, SELFPAY ==
[2025-07-09 12:07] VITALS: BMI 53.4
--- NOTE | 2025-07-09 12:18 | ITS.CL.CARDI ---
Supply Teacher - Cardioversion
Cardioversion
Procedure Report:
Date of Procedure: 07/09/25
Procedure: Cardioversion
Indication: Symptomatic atrial flutter
Performing Physician: Luis Carlos Rivera MD
Technique: The patient was brought to the holding area. Signed informed consent was obtained. A time out was called and performed. The patient was anesthetized by the anesthesia service. Anticoagulation status was reviewed and appropriate. R2 pads
were placed anteriorly and posteriorly. A 200 J synchronized biphasic shock restored normal sinus rhythm without significant bradycardia. There were no complications.
Conclusion: Uncomplicated cardioversion from atrial flutter to sinus rhythm.
Recommendation: Routine post cardioversion care. Continue long chain beamer anticoagulation.
== END 2025-07-09 13:00 | disposition home or self-care (01) ==
LOC: CATH 11:05
PROVIDERS: ATTENDING PHYSICIAN Internal Medicine Cardiovascular Disease; FAMILY PHYSICIAN Family Medicine; OTHER PHYSICIAN Internal Medicine Cardiovascular Disease
DX: I48.92 Unspecified atrial flutter (principal)
CPT/HCPCS: 92960; 93005

== ENCOUNTER 2025-08-08 04:38 | Inpatient (IN) | payer MEDICARE, BC, SELFPAY ==
[2025-08-08] VITALS (13 sets, daily range): BP systolic 114–175; BP diastolic 56–88; BMI 53.3
--- NOTE | 2025-08-08 00:42 | ED.GENMED ---
History of Present Illness
<Anu Hoffman ROR ENGINEER - Last Filed: 08/10/25 08:32>
General
Chief Complaint: Abdominal Pain
Source: patient
Exam Limitations: none
Time Seen by Provider: 08/08/25 00:32
Nursing documentation reviewed up to this point in time: agreed with
History of Present Illness
History of Present Illness:
79-year-old female history of COPD, A-fib on Eliquis, HTN, HLD, GERD, hiatal hernia, NIDDM, anxiety presents with a sudden onset of mild right flank and abdominal pain this morning then pain got suddenly worse and shortly after dinner tonight she
vomited a large amount and still feels nauseous. She has had several loose bowel movements today. She denies fever or chills.
Past History
<Anu Hoffman, ROR ENGINEER - Last Filed: 08/10/25 08:32>
Past History
ED Past Medical History: Arrthythmia (A-fib on Eliquis), COPD, HTN, NIDDM, Psychiatric (Anxiety) and Other (endometrial cancer, urinary incontinence)
ED Past Surgical History: Gynecological and Other (hysterectomy)
Social History
Tobacco: Non-smoker
Alcohol: Occasional
Drug: None
Personal:
Living: with family
Employment: Employed
Review of Systems
<Anu Hoffman, ROR ENGINEER - Last Filed: 08/10/25 08:32>
Review of Systems
Allergies reviewed?: Yes
All Other Systems: ROS reviewed and negative except as documented in HPI and ROS
Constitutional: Denies fever
Respiratory: Denies trouble breathing
Cardiac: Denies chest pain
ABD/GI: Reports abdominal pain, nausea, vomiting and other (Several loose stools today); Denies bloody stools or black stools
: Denies dysuria or difficulty voiding
Musculoskeletal: Reports no symptoms
Skin: Reports no symptoms
Neurological: Reports no symptoms
Phy Exam
<Anu Hoffman, ROR ENGINEER - Last Filed: 08/10/25 08:32>
Physical Exam
Physical Exam:
GENERAL: No acute distress. A&Ox3.
CONSTITUTIONAL: Afebrile.
EYES: clear, conjunctivae normal
ENMT: moist mucus membranes, Pharynx nl
RESPIRATORY: Regular respirations, nonlabored, lungs clear.
CARDIOVASCULAR: Regular rate and rhythm, no murmurs, no rubs.
GI: Soft, morbidly obese, tender right lower abdomen, normal BS
MUSCULOSKELETAL: Moves with ease. Well perfused.
SKIN: Warm, dry, pink
PSYCH: Anxious mood and affect. Well kept, interactive and appropriate
NEUROLOGIC: Awake, alert and oriented. No focal neurological deficits
Course
<Anu Hoffman, ROR ENGINEER - Last Filed: 08/10/25 08:32>
Orders/Labs/Results
Orders:
Orders
08/08/25 00:36
Morphine Sulfate 4 mg IV NOW STA
Ondansetron Injectable [Zofran] 4 mg IV NOW STA
08/08/25 00:37
0.9% Sodium Chloride 1000 ml [Nss] 1,000 ml IV BOLUS
08/08/25 00:41
CT Abd/pel Without Iv Or Oral Urgent
Comment:
Reason For Exam: right flank and abd pain
08/08/25 00:47
Complete Blood Count/With Diff Urgent
Comprehensive Metabolic Panel Urgent
Lipase Urgent
08/08/25 02:17
US Abdomen Limited Urgent
Comment:
Reason For Exam: RUQ
08/08/25 03:14
SURGICAL CONSULT Urgent
Consulting Provider: Devante David
Was physician already notified: Yes
Reason for consult: cholecystitis
08/08/25 03:19
Piperacillin/Tazo 3.375 Gram [Zosyn] 3.375 gram in 50 ml IV NOW
08/08/25 03:56
Morphine Sulfate 4 mg IV NOW STA
Ondansetron Injectable [Zofran] 4 mg IV NOW STA
08/08/25 04:22
Admit/Transfer Patient As Directed
Co-Sign Provider:
Level of Care: Inpatient admission
Assign to:: Medical/Surgical
Physician / Group: Jj
Diagnosis: Cholelithiasis +/- Cholecystitis
Reason for Hospitalization: Cholelithiasis +/- Cholecystitis
Expected length of stay greater than two midnights?: Yes
ELOS- Estimated Length of Stay in days: 3
I certify the patient meets the requirements for IP care: Yes
PRN Pain Medication Management As Directed
May give lesser potent ordered pain med per pt: Yes
preference::
Protocol:: Medication orders for pain may be administered in a
manner that supports deferring to patient preference
when the pt is:
- Requesting an ordered lesser potent pain medication.
Least to most potent pain medications are defined
as: acetaminophen < NSAID < tramadol < opioids
(morphine, oxycodone, hydromorphone).
- Requesting a lesser dose of the same medication IF
ORDERED.
- Requesting a less intrusive route of administration
if both routes are prescribed by the provider (PO <
IV).
08/08/25 04:24
Code Status As Directed
Resuscitation Status: Full Code
08/08/25 05:17
Acetaminophen [Tylenol] 650 mg PO Q4HPRN PRN
Dextrose 50%-Water [Dextrose 50% Syringe] 12.5 grams IV [id number] PRN
Glucagon [GlucaGen] 1 mg IM PRN PRN
HYDROmorphone [Dilaudid] 0.5 mg IV Q4HPRN PRN
Ondansetron Injectable [Zofran] 4 mg IV Q6HPRN PRN
08/08/25 05:17
Activity As Directed
Activity Level: Ambulate
With Assistance
Bedside Glucose Monitoring As Directed
Frequency: AC&HS
Additional Instructions:: Change to q6h if pt on TPN, tube feeding or not eating
I/O [Intake/ Output] As Directed
Frequency: Per unit guidelines
Pneumatic Compression Sleeves As Directed
Type: Knee high
Vital Signs As Directed
Frequency: Per unit guidelines
Weight As Directed
Frequency: Daily
Oxygen Therapy [O2 Therapy] [RESP] Routine
Titrate/Wean O2 to maintain O2 sat greater than (%): 94
DX Deep Vein Thrombosis Video Routine
08/08/25 Breakfast
NPO
Allow oral meds: Yes
Allow clear liquids: Sips of Clears
08/08/25 06:48
Basic Metabolic Panel IN AM
Complete Blood Count/No Diff IN AM
Comprehensive Metabolic Panel IN AM
Glycohemoglobin (HgbA1c) IN AM
08/08/25 07:30
Insulin Aspart Corrective Low [Novolog Flexpen-Low Resistance] See Protocol SC AC
08/08/25 08:00
Budesonide [Pulmicort] 0.5 mg INH R BID
Carvedilol [Coreg] 25 mg PO BID
Furosemide [Lasix] 40 mg PO BID AT 0800,1600
Pantoprazole [Protonix] 40 mg PO DAILY
08/08/25 09:11
Urinalysis Reflex To Culture Urgent
Date Specimen was Collected: 08/08/25
Time Specimen was Collected: 08:00
08/08/25 10:00
Piperacillin/Tazo 3.375 Gram [Zosyn] 3.375 gram in 50 ml IV Q6H
Abnormal Lab Results
08/08/25
00:47
WBC 12.3 H 10^3/uL
(4.8-10.8)
MCHC 32.7 L g/dL
(33.0-37.0)
Absolute Neuts (auto) 10.0 H 10^3/uL
(1.4-6.5)
Absolute Monos (auto) 0.7 H 10^3/uL
(0.1-0.6)
Neutrophils % 80.8 H %
(42.2-75.2)
Lymphocytes % 11.3 L %
(20.5-51.1)
Carbon Dioxide 32 H mmol/L
(22-30)
Glucose 155 H mg/dl
(70-99)
AST 39 H U/L
(14-36)
Alkaline Phosphatase 147 H U/L
(38-126)
08/08/25 00:47
08/08/25 00:47
Vital Signs
Initial and Last Documented VS:
Initial Vital Signs
Temp Pulse Resp BP Pulse Ox
96.5 F L 87 24 175/75 97
08/08/25 00:04 08/08/25 00:04 08/08/25 00:04 08/08/25 00:04 08/08/25 00:04
Last Documented Vital Signs
Temp Pulse Resp BP Pulse Ox
97.8 F 75 18 101/69 93
08/10/25 03:20 08/10/25 03:20 08/10/25 03:20 08/10/25 03:20 08/10/25 03:20
<Jean Marie Springer MD - Last Filed: 08/08/25 04:00>
Orders/Labs/Results
Orders:
Orders
08/08/25 00:36
Morphine Sulfate 4 mg IV NOW STA
Ondansetron Injectable [Zofran] 4 mg IV NOW STA
08/08/25 00:37
0.9% Sodium Chloride 1000 ml [Nss] 1,000 ml IV BOLUS
08/08/25 00:41
CT Abd/pel Without Iv Or Oral Urgent
Comment:
Reason For Exam: right flank and abd pain
08/08/25 00:47
Complete Blood Count/With Diff Urgent
Comprehensive Metabolic Panel Urgent
Lipase Urgent
08/08/25 02:17
US Abdomen Limited Urgent
Comment:
Reason For Exam: RUQ
08/08/25 03:14
SURGICAL CONSULT Urgent
Consulting Provider: Devante David
Was physician already notified: Yes
Reason for consult: cholecystitis
08/08/25 03:19
Piperacillin/Tazo 3.375 Gram [Zosyn] 3.375 gram in 50 ml IV NOW
08/08/25 03:56
Morphine Sulfate 4 mg IV NOW STA
Ondansetron Injectable [Zofran] 4 mg IV NOW STA
08/08/25 04:22
Admit/Transfer Patient As Directed
Co-Sign Provider:
Level of Care: Inpatient admission
Assign to:: Medical/Surgical
Physician / Group: Jj
Diagnosis: Cholelithiasis +/- Cholecystitis
Reason for Hospitalization: Cholelithiasis +/- Cholecystitis
Expected length of stay greater than two midnights?: Yes
ELOS- Estimated Length of Stay in days: 3
I certify the patient meets the requirements for IP care: Yes
PRN Pain Medication Management As Directed
May give lesser potent ordered pain med per pt: Yes
preference::
Protocol:: Medication orders for pain may be administered in a
manner that supports deferring to patient preference
when the pt is:
- Requesting an ordered lesser potent pain medication.
Least to most potent pain medications are defined
as: acetaminophen < NSAID < tramadol < opioids
(morphine, oxycodone, hydromorphone).
- Requesting a lesser dose of the same medication IF
ORDERED.
- Requesting a less intrusive route of administration
if both routes are prescribed by the provider (PO <
IV).
08/08/25 04:24
Code Status As Directed
Resuscitation Status: Full Code
08/08/25 05:17
Acetaminophen [Tylenol] 650 mg PO Q4HPRN PRN
Dextrose 50%-Water [Dextrose 50% Syringe] 12.5 grams IV [id number] PRN
Glucagon [GlucaGen] 1 mg IM PRN PRN
HYDROmorphone [Dilaudid] 0.5 mg IV Q4HPRN PRN
Ondansetron Injectable [Zofran] 4 mg IV Q6HPRN PRN
08/08/25 05:17
Activity As Directed
Activity Level: Ambulate
With Assistance
Bedside Glucose Monitoring As Directed
Frequency: AC&HS
Additional Instructions:: Change to q6h if pt on TPN, tube feeding or not eating
I/O [Intake/ Output] As Directed
Frequency: Per unit guidelines
Pneumatic Compression Sleeves As Directed
Type: Knee high
Vital Signs As Directed
Frequency: Per unit guidelines
Weight As Directed
Frequency: Daily
Oxygen Therapy [O2 Therapy] [RESP] Routine
Titrate/Wean O2 to maintain O2 sat greater than (%): 94
DX Deep Vein Thrombosis Video Routine
08/08/25 Breakfast
NPO
Allow oral meds: Yes
Allow clear liquids: Sips of Clears
08/08/25 06:48
Basic Metabolic Panel IN AM
Complete Blood Count/No Diff IN AM
Comprehensive Metabolic Panel IN AM
Glycohemoglobin (HgbA1c) IN AM
08/08/25 07:30
Insulin Aspart Corrective Low [Novolog Flexpen-Low Resistance] See Protocol SC AC
08/08/25 08:00
Budesonide [Pulmicort] 0.5 mg INH R BID
Carvedilol [Coreg] 25 mg PO BID
Furosemide [Lasix] 40 mg PO BID AT 0800,1600
Pantoprazole [Protonix] 40 mg PO DAILY
08/08/25 09:11
Urinalysis Reflex To Culture Urgent
Date Specimen was Collected: 08/08/25
Time Specimen was Collected: 08:00
08/08/25 10:00
Piperacillin/Tazo 3.375 Gram [Zosyn] 3.375 gram in 50 ml IV Q6H
Abnormal Lab Results
08/08/25
00:47
WBC 12.3 H 10^3/uL
(4.8-10.8)
MCHC 32.7 L g/dL
(33.0-37.0)
Absolute Neuts (auto) 10.0 H 10^3/uL
(1.4-6.5)
Absolute Monos (auto) 0.7 H 10^3/uL
(0.1-0.6)
Neutrophils % 80.8 H %
(42.2-75.2)
Lymphocytes % 11.3 L %
(20.5-51.1)
Carbon Dioxide 32 H mmol/L
(22-30)
Glucose 155 H mg/dl
(70-99)
AST 39 H U/L
(14-36)
Alkaline Phosphatase 147 H U/L
(38-126)
08/08/25 00:47
08/08/25 00:47
Vital Signs
Initial and Last Documented VS:
Initial Vital Signs
Temp Pulse Resp BP Pulse Ox
96.5 F L 87 24 175/75 97
08/08/25 00:04 08/08/25 00:04 08/08/25 00:04 08/08/25 00:04 08/08/25 00:04
Last Documented Vital Signs
Temp Pulse Resp BP Pulse Ox
97.8 F 75 18 101/69 93
08/10/25 03:20 08/10/25 03:20 08/10/25 03:20 08/10/25 03:20 08/10/25 03:20
<Anu Hoffman ROR ENGINEER - Last Filed: 08/10/25 08:32>
MDM/Problems Addressed
MDM/Problems Addressed:
79-year-old female history of COPD, A-fib on Eliquis, HTN, HLD, GERD, hiatal hernia, NIDDM, anxiety presents with a sudden onset of mild right flank and abdominal pain this morning then pain got suddenly worse and shortly after dinner tonight she
vomited a large amount and still feels nauseous. She has had several loose bowel movements today. She denies fever or chills.
Afebrile
Moderate distress with pain and retching
CBC: WBC 12.3
CMP: No clinically significant abnormality
lipase WNL
3:10 a.m.
US [facility] preliminary report: Gallbladder distention with sludge and likely gallstones. Gallbladder measures up to 5 mm in thickness. Findings are equivocal and could represent early acute cholecystitis.
Patient remains comfortable and nauseous
plan: Admit to hospitalist with surgical consult
Both hospitalist and surgeon notified of admission
<Anu Hoffman ROR ENGINEER - Last Filed: 08/10/25 08:32>
*Pulse Oximetry
SaO2: 97
Patient hypoxic: no
*Critical Care Note
Total Time (30-74mins, 75-104mins- exclusive of procedures): Not Applicable
ED Attending Note
<Anu Hoffman ROR ENGINEER - Last Filed: 08/10/25 08:32>
-
Portions of this chart may have been created with voice recognition software.� Occasional wrong word or��sound alike� substitutions may have occurred due to the inherent limitations of voice recognition software.
<Jean Marie Springer MD - Last Filed: 08/08/25 04:00>
ED Attending Note
Patient seen and examined by attending physician: Yes
ED Attending Note:
I have seen and evaluated the patient with a vdnf-zd-ften encounter. I have spoken to the advance practicer provider and involved in the medical history, the physical exam, medical decision making.
Evaluation and management service: agree unless noted differently below.
Results interpretation: agree unless noted differently below.
Focused HPI: 79-year-old female with history as noted presents to the ER for evaluation of abdominal pain with nausea and vomiting. Pain started this evening after eating chicken for dinner she had large episode of vomiting and has had consistent
upper abdominal pain since.
Physical exam: Awake and alert, holding emesis bag. Marginal hypothermia, mild hypertension otherwise normal vitals.
Medical Decision Makin-year-old female presents with upper abdominal pain and vomiting. CBC showed leukocytosis, CMP showed essentially normal LFTs. Abdominal imaging concerning for cholecystitis. Will control symptoms, IV antibiotics,
surgery consult. Admit for continued management.
Discharge Plan
Departure
Patient Disposition: Admit
Date of Disposition: 08/08/25
Time of Disposition: 03:15
Admit to: Med/Surg
Presentation/result/management discussed w/ accepting MD/DO: Hospitalist
Condition: Fair
Discharge Problem:
Acute cholecystitis
Interventions
Interventions:
*Risk Screen - Suicide Last Done: 08/08/25 05:50
*General Assessment Last Done: 08/08/25 00:40
*Neglect/Abuse Screening Last Done: 08/08/25 00:40
*ED- Fall Risk Assessment Last Done: 08/08/25 00:40
*ED COVID-19 Vaccine History Last Done: 08/08/25 05:50
*ED Influenza Vaccine History Last Done: 08/08/25 00:40
*Nursing Disposition Last Done: 08/08/25 05:25
QM-Ooetxb-Fnhoqoocvt Assessment Last Done: 08/08/25 00:41
Discharge Date and Time
Discharge Date/Time: 08/08/25 05:25
[2025-08-08] MEDS: NSS 1000 IV (00:45)
[2025-08-08] MEDS: MORPHINE SULFATE 4 MG IV ×2 (00:49→04:08)
[2025-08-08] MEDS: ZOFRAN 4 MG IV ×3 (00:49→21:14)
[2025-08-08 01:01] LABS: Hematocrit 38.2 % (37.0-47.0); Hemoglobin 12.5 g/dL (12.0-16.0); Mean Corp Hgb Conc. 32.7 g/dL (33.0-37.0); Mean Corpuscular Volume 84.5 fL (81.0-99.0); Nucleated Red Blood Cells % 0 %; Platelet Count 230 10^3/uL (130-400); Red Cell Dist. Width 13.7 % (11.5-14.5)
[2025-08-08 01:20] LABS: ALT (SGPT) 34 U/L (0-35); AST (SGOT) 39 U/L (14-36); Albumin 4.3 g/dl (3.5-5.0); Alkaline Phosphatase 147 U/L (38-126); Blood Urea Nitrogen 15 mg/dl (7-17); Calcium 8.7 mg/dl (8.4-10.2); Carbon Dioxide 32 mmol/L (22-30); Chloride 99 mmol/L (98-107); Estimated Creatinine Clearance 65 ml/min; Glucose 155 mg/dl (70-99); Lipase 256 U/L (23-300); Potassium 3.6 mmol/L (3.5-5.1); Sodium 139 mmol/L (135-145); Total Protein 7.4 g/dl (6.3-8.2); eGFR 57.66
[2025-08-08] MEDS: ZOSYN 50 IV ×4 (03:29→21:07)
--- NOTE | 2025-08-08 04:26 | HPS.HSE ---
Family Physician
-
Family Physician: NOT KNOW UNKNOWN - PT DOES
Chief Complaint
-
Abd Pain
History of Present Illness
Patient is a 79y F with PMH significant for A-Fib / Flutter, HFpEF and morbid obesity who presents to ED complaining of abdominal pain. Patient states that she started with R flank discomfort about 2-3 days ago. This was accompanied by mild
nausea that seemed to improve after belching. Her symptoms progressed over the past few days. Pain radiated to the anterior abdomen and nausea intensified. She states that she felt 'clammy' at home - though she had no measured fever. She
presented to the ED this evening with severe pain ('11 out of 10'). She had emesis here in the ED - none at home prior. Patient denies any prior h/o similar symptoms.
Medical History
Past Medical History
Past Medical History: Reports Other
Additional Past Medical History:
Atrial Fibrillation / Flutter
HFpEF
Hypertension
MINOR
Asthma
DM-II
Eczema
Fibromyalgia
Migraines
Morbid Obesity
Past Surgical History: Reports Other
Additional Past Surgical History:
DCCV x multiple
PVI Ablation
WALTER
Cataracts
Temporal Artery Biopsy
Social History
Tobacco: Non-smoker
Alcohol: None
Drug: None
Family History
Family History: Other (Father: Colon Cancer Mother: Lymphoma Sister: Renal Cancer)
Allergies / Home Medications
Allergies reflects when Allergies were last updated in [facility].
Home Medications with original date entered in [facility]
Allergy/Medication List:
Allergies
Allergy/AdvReac Type Severity Reaction Status Date / Time
adhesive Allergy Skin Verified 01/08/25 08:28
Peeling
aspartame Allergy Severe Verified 01/08/25 08:28
headache
aspirin Allergy GI Verified 01/08/25 08:28
discomfort-
GERD
betamethasone dipropionate Allergy patient Verified 01/08/25 08:28
(From Lotrisone) denies
cefuroxime Allergy Unknown Verified 01/08/25 08:28
celecoxib Allergy Muscle Verified 01/08/25 08:28
Weakness
cinnamon Allergy Severe Verified 01/08/25 08:28
Mouth Sores
ciprofloxacin Allergy Unknown Verified 01/08/25 08:28
clotrimazole (From Lotrisone) Allergy Rash Verified 01/08/25 08:28
dexamethasone Allergy Vision Verified 01/08/25 08:28
Problems
doxycycline Allergy Unknown Verified 01/08/25 08:28
duloxetine (From Cymbalta) Allergy Nausea, Verified 01/08/25 08:28
Headache,
Leg
Cramps,
Back Pain
evolocumab (From Repatha Allergy Diarrhea Verified 01/08/25 08:28
SureClick)
fluconazole Allergy Unknown Verified 01/08/25 08:28
hydrocodone (From Vicodin) Allergy Unknown Verified 01/08/25 08:28
imipramine Allergy Unknown Verified 01/08/25 08:28
ketchup Allergy Vomiting Verified 01/08/25 08:28
latex Allergy Rash Verified 07/09/25 12:35
prednisone Allergy Severe Verified 01/08/25 08:28
anxiety
attack
rofecoxib (From Vioxx) Allergy Muscle Verified 01/08/25 08:28
Weakness
Dvbpepb-HWF-QoZ Reductase Allergy muscle Verified 01/08/25 08:28
Inhibitor (Dgvpucz-Smz-Vlo weakness,
Reductase Inhibitor) GI issue
sulfamethoxazole (From Allergy SOB, Fever Verified 01/08/25 08:28
Bactrim)
trimethoprim (From Bactrim) Allergy SOB, Fever Verified 01/08/25 08:28
cefixime (From Suprax) AdvReac leg Verified 07/09/25 12:04
weakness
ANESTHESIA MEDICATIONS AdvReac sensitive Uncoded 01/08/25 08:28
to anesth,
Heaviness
of limbs
Home Medications
alpha lipoic acid 100 mg capsule 200 mg PO MOTH Supplement 10/13/13
fluticasone propionate 50 mcg/actuation nasal spray,suspension 2 spray intranasal DAILY 10/13/13
ascorbic acid (vitamin C) 500 mg tablet (Vitamin C) 500 mg PO MOWE Supplement 12/31/22
calcium 500 mg (as carbonate)-vitamin D3 5 mcg (200 unit) tablet (Calcium 500 + D) 1 tab PO DAILY Supplement 12/31/22
cholecalciferol (vitamin D3) 10 mcg (400 unit) tablet (Vitamin D3) 10 mcg PO DAILY 12/31/22
cholecalciferol (vitamin D3) 25 mcg (1,000 unit) tablet (Vitamin D3) 25 mcg PO DAILY 12/31/22
cyanocobalamin (vitamin B-12) 500 mcg tablet (Vitamin B-12) 500 mcg PO DAILY Supplement 12/31/22
omeprazole 20 mg capsule,delayed release 20 mg PO DAILY Gastrointestinal issue 12/31/22
pyridoxine (vitamin B6) 100 mg tablet (Vitamin B-6) 100 mg PO TUTH Supplement 12/31/22
vibegron 75 mg tablet (Gemtesa) 75 mg PO DAILY Urinary issue 12/31/22
coQ10 (ubiquinol) 100 mg capsule 100 mg PO DAILY Supplement 01/01/23
therapeutic multivitamin 1 tab PO DAILY Supplement 01/01/23
Reclast 1 dose IV [id number] 01/10/24
biotin 10,000 mcg chewable tablet (Hair, Skin and Nails (biotin)) 3,000 mcg PO DAILY Supplement 01/10/24
guaifenesin 600 mg tablet, extended release 12 hr (Mucinex) 600 mg PO [id number] PRN cough 01/10/24
apixaban 5 mg tablet (Eliquis) 5 mg PO BID Blood Clot Prevention/Tx 08/11/24
budesonide 0.5 mg/2 mL suspension for nebulization 0.5 mg inhalation R DAILY Lung/Breathing Issues 12/18/24
famotidine 40 mg tablet 40 mg PO HSPRN PRN gerd 09/24/24
albuterol sulfate 90 mcg/actuation aerosol inhaler 2 puff inhalation PRN PRN SOB 12/24/24
cod liver oil 1 cap PO WE 12/24/24
fluoride (sodium) 1.1 % dental paste 1 applic dental BID 12/24/24
furosemide 40 mg tablet 40 mg PO BID AT 0800,1600 12/24/24
hydrocortisone 1 % topical cream 1 applic topical PRN PRN Rash, itching 12/24/24
ketoconazole 2 % topical cream 1 applic topical PRN PRN Rash 12/24/24
lidocaine 4 % topical patch (Lidocaine Pain Relief) 1 patch topical DAILY Pain 12/24/24
mometasone 0.1 % topical cream 1 applic topical DAILY PRN to ears 12/24/24
nystatin 100,000 unit/mL oral suspension 5 ml PO TID 12/24/24
nystatin-triamcinolone 100,000 unit/g-0.1 % topical cream 1 applic topical DAILY PRN rash 12/24/24
omega-3 acid ethyl esters 1 gram capsule (Lovaza) 1 cap PO DAILY 12/24/24
psyllium 625 mg PO DAILY 12/24/24
colesevelam 625 mg tablet (WelChol) 625 mg PO BID 07/09/25
carvedilol 12.5 mg tablet 25 mg PO DAILY 08/08/25
Review of Systems
-
History Source: Patient
A 12 point ROS was completed and negative except as noted: Yes
Constitutional: Reports Chills; Denies Fever
Respiratory: Denies Cough or Trouble Breathing
Cardiac: Denies Chest Pain or Palpitations
Abdomen/GI: Reports Abdominal Pain, Nausea and Vomiting; Denies Diarrhea, Constipated, Bloody Stools or Black Stools
: Reports Flank Pain; Denies Dysuria or Frequency
Neurological: Denies Dizzy or Headache
Psych: Denies Depression or Anxiety
Physical Exam
Vital Signs
Vital Signs
Temp Pulse Resp BP Pulse Ox
96.5 F L 75 17 156/77 95
08/08/25 00:04 08/08/25 04:00 08/08/25 04:00 08/08/25 04:00 08/08/25 04:00
Physical Exam
General: Other (79y F in mild distress due to pain.)
HEENT: Other (Dry MM. Thick neck.)
Respiratory: Other (Decreased at bases - otherwise clear.)
Cardiac: S1/S2 and Regular Rhythm; No Murmur
GI: Other (Obese - pos tenderness most evident in the RUQ with voluntary guarding. No rebound. Pos BS.)
Musculoskeletal: No Clubbing, No Cyanosis and Other (2+ pitting edema b/l LEs.)
Neuro: AO x 3
Laboratory Results
-
08/08/25 00:47
08/08/25 00:47
Laboratory Results
Total Bilirubin 0.7 mg/dl (0.2-1.3) 08/08/25 00:47
AST 39 U/L (14-36) H 08/08/25 00:47
ALT 34 U/L (0-35) 08/08/25 00:47
Alkaline Phosphatase 147 U/L (38-126) H 08/08/25 00:47
Lipase 256 U/L (23-300) 08/08/25 00:47
Impression/Plan
-
A/P: Patient is a 79y F with PMH significant for A-Fib / Flutter, CHF and morbid obesity who presents to ED complaining of RUQ pain with N/V.
Cholelithiasis +/- Acute Cholecystitis
- Admit for further evaluation and treatment.
- RUQ pain, N/V. US and CT show stones / sludge with borderline wall measurements and no pericholecystic fluid.
- LFTs essentially unremarkable.
- Continue IV Zosyn for now.
- NPO, pain control, antiemetics, etc.
- HIDA in AM for clarification.
- Surgery consulted for additional recommendations / possible eventual cholecystectomy.
Atrial Fibrillation / Flutter
- s/p PVI ablation without further episodes of A-Fib.
- Recent episode of typical A=-Flutter s/p DCCV on 07/09.
- Stable / NSR at present.
- Last dose of Eliquis was this evening prior to presentation.
- Hold pending possible intervention / OR.
- Continue carvedilol - change to BID dosing.
Chronic HFpEF
- Some pitting LE edema - though patient states that weight has been stable. She has been compliant with Lasix dosing.
- Continue current Lasix 40mg BID.
- Follow I/Os, daily weights, etc and adjust dose as needed.
DM-II
- Reportedly diet controlled. Not on an current DM medications.
- Follow glucose and cover with SSI as needed.
- Update A1C.
Morbid Obesity due to excess calories
- Affects all aspects of care.
Asthma without Acute Exacerbation
- Continue current inhaled medications.
- Albuterol PRN.
Eczema
Fibromyalgia
Polypharmacy
DVT Prophylaxis: SCDs while Eliquis on hold.
Code Status: Full
[2025-08-08] MEDS: COMPAZINE 5 MG IV (06:33)
[2025-08-08] MEDS: NOVOLOG FLEXPEN-LOW RESISTANCE 1 UNITS SC (06:45)
--- NOTE | 2025-08-08 06:45 | PTCARENOTE ---
Pt arrived from ED at 05:50, is a 79y F with PMH significant for A-Fib / Flutter, HFpEF, MINOR, Asthma, DM-II, Eczema, Fibromyalgia,
Migraines and morbid obesity.Past Surgical History: DCCV x multiple, PVI Ablation, WALTER, Cataracts,Temporal Artery Biopsy. Pt AOx3, pain acceptable level, bed in a low position, call light in reach.
[2025-08-08 06:49] LABS: Glucose - Point of Care 154 mg/dl (70-99)
[2025-08-08 07:08] LABS: Hematocrit 37.2 % (37.0-47.0); Hemoglobin 12.1 g/dL (12.0-16.0); Mean Corp Hgb Conc. 32.5 g/dL (33.0-37.0); Mean Corpuscular Volume 86.9 fL (81.0-99.0); Platelet Count 216 10^3/uL (130-400); Red Cell Dist. Width 13.8 % (11.5-14.5)
[2025-08-08 07:34] LABS: ALT (SGPT) 68 U/L (0-35); AST (SGOT) 132 U/L (14-36); Albumin 4.1 g/dl (3.5-5.0); Alkaline Phosphatase 145 U/L (38-126); Blood Urea Nitrogen 13 mg/dl (7-17); Calcium 8.7 mg/dl (8.4-10.2); Carbon Dioxide 28 mmol/L (22-30); Chloride 101 mmol/L (98-107); Estimated Creatinine Clearance 72 ml/min; Glucose 150 mg/dl (70-99); Potassium 3.8 mmol/L (3.5-5.1); Sodium 138 mmol/L (135-145); Total Protein 6.9 g/dl (6.3-8.2); eGFR > 60.00
[2025-08-08] MEDS: PULMICORT 0.5 MG INH ×2 (07:51→18:00)
--- NOTE | 2025-08-08 08:25 | W.PN.HOSP.TC ---
Addendum entered and electronically signed by Dario White MD 08/08/25 12:43:
Attending�addendum:
I saw and evaluated the patient. I reviewed the resident�s note and agree with findings and plan as documented in the resident�s note.��patient seen and examined at bedside, denies any chest pain or shortness of breath, improved abdominal pain, now
5/10 no nausea, no vomiting, no diarrhea or constipation.
Physical�exam:
GENERAL : Patient is awake, alert, oriented x3
HEENT: Nonicteric sclerae, PERRLA, EOMI. Oropharynx clear. Moist mucous membranes. Conjunctivae appear well perfused.
CHEST: Chest wall is nontender.
HEART: Regular rate and rhythm without murmurs.
LUNGS: Clear to auscultation bilaterally.
ABDOMEN: Soft, positive bowel sounds, nontender, no organomegaly.
RECTAL: Deferred.
MUSCLES/EXTREMITIES: No abnormal range of motion, no swelling.SKIN: No rash, no excessive bruising, petechiae, or purpura.
NEUROLOGIC: Cranial nerves II-XII intact without motor/sensory deficit.
�
Assessment/plan:
Acute cystitis/cholelithiasis
Seen by general surgery.
Plan for lap camilo, possible OR tomorrow or Sunday.
Cleared by cardiology
Eliquis on hold
Paroxysmal A-fib.
Now sinus rhythm.
Continue carvedilol.
Continue gambling monitor
Chronic diastolic CHF.
Continue Lasix
CODE STATUS: Full code
DVT prophylaxis: Eliquis on hold, SCD
Diet: Clear liquid
Disposition: OR tomorrow or Sunday
�
Total time spent on today�s encounter was 51 minutes which included time spent in counseling the patient/family regarding diagnosis and treatment plan as listed above, goals of care, and symptom management. Case was discussed with nursing staff,
specialists, and care coordinators/case management. All labs and imaging personally reviewed by me. Remainder the time spent in detailed review of previous records, lab data, imaging, and other medical provider documentation.
Original Note:
Today's Communication/Plan
-
For OR Sunday, trend CMP, pre-operative clearance
Assessment / Plan
Assessment / Plan
Rachell Yan is a 79F w/ PMHx atrial fibrillation/flutter (recent cardioversion 07/09/2025), HFpEF, and morbid obesity w/ MINOR who presented to the ED late evening of 08/07 c/o abdominal pain. Pain started in the right flank 2 to 3 days ago and was
accompanied by mild nausea that improved with belching. Symptoms progressed over the next few days. On day of arrival, severe pain (11 out of 10), clamminess, and several loose bowel movements with 1 episode of emesis in the ED. In the ED, WBC
12.3 K with no abnormalities on CMP and a normal lipase. Ultrasound showed gallbladder distention with sludge and likely gallstones. Gallbladder thickness up to 5 mm. Patient was admitted for surgical consult. Started on prophylactic Zosyn.
1. Cholelithiasis +/- Acute Cholecystitis
- Sludge and gallstones on US
- Equivocal wall measurements without pericholecystic fluid
- LFTs trending up
- May need MRCP if LFTs continue to uptrend
- Continue IV Zosyn
- For OR Sunday
2. Atrial Fibrillation/Flutter
- s/p PVI ablation for a/fib; recent episode of A/flutter 07/09 with successful cardioversion
- NSR at present
- Last dose of Eliquis on the evening of 08/07 (hold eliquis for OR)
- Continue Coreg
- Cardiology consult for cardiovascular clearance in the setting of pending lap camilo
3. Chronic HFpEF
- Continue Lasix 40mg PO BID
- Daily weights, I/Os
4. Type 2 DM
- Sliding Scale
- Hba1c = 6.0
5. Morbid Obesity
6. Asthma without Acute Exacerbation
- continue INH
7. Eczema
8. Fibromyalgia
DVT PPx: Hold eliquis for OR, SCDs
Diet: Low CHO, NPO s/p MN 08/08
Code: FULL
Anticipated Discharge: > 48 hours
Subjective/Interval History
-
Date of Service: August 08, 2025
Rachell Yan is a 79F w/ PMHx atrial fibrillation/flutter (recent cardioversion 07/09/2025), HFpEF, and morbid obesity w/ MINOR who presented to the ED late evening of 08/07 c/o abdominal pain. Pain started in the right flank 2 to 3 days ago and was
accompanied by mild nausea that improved with belching. Symptoms progressed over the next few days. On day of arrival, severe pain (11 out of 10), clamminess, and several loose bowel movements with 1 episode of emesis in the ED. In the ED, WBC
12.3 K with no abnormalities on CMP and a normal lipase. Ultrasound showed gallbladder distention with sludge and likely gallstones. Gallbladder thickness up to 5 mm. Patient was admitted for surgical consult. Started on prophylactic Zosyn.
Patient endorses improved pain on current pain regimen, but still with residual pain in the RUQ/R flank. Has not had any episodes of vomiting since changing antiemetic overnight. Denies fevers or chills.
Objective Data
-
Labs:
Laboratory Results
08/08/25 08/08/25
00:47 06:48
WBC 12.3 H 9.5
Hgb 12.5 12.1
Hct 38.2 37.2
Plt Count 230 216
Sodium 139 138
Potassium 3.6 3.8
Chloride 99 101
Carbon Dioxide 32 H 28
BUN 15 13
Creatinine 1.0 0.9
Glucose 155 H 150 H
Calcium 8.7 8.7
Total Bilirubin 0.7 1.2
AST 39 H 132 H
ALT 34 68 H
Alkaline Phosphatase 147 H 145 H
White blood cell count improved to 9.5 from 12.3 K.
T. bili, AST, ALT, alkaline phosphatase trending upward.
Vital Signs:
Vital Signs
Temp Pulse Resp BP Pulse Ox
97.4 F 79 16 143/86 95
08/08/25 06:30 08/08/25 07:57 08/08/25 07:57 08/08/25 06:30 08/08/25 07:57
Afebrile with stable vital signs overnight.
Review of Systems
-
History Source: Patient
All other systems: Reviewed and negative
Physical Exam
-
General: Well Nourished, No Apparent Distress and Comfortable
HEENT: Normocephalic and Moist Mucous Membranes
Respiratory: Clear to Auscultation and Non Labored Respirations
Cardiac: Regular Rhythm and S1/S2
GI: Soft and Tender (RUQ)
Genito-urinary: Costovertebral Angle Tend (R)
Musculoskeletal: No Clubbing, No Cyanosis and No Edema
Skin: Warm
Neuro: Awake, Alert and Oriented
Psych: Calm
Data Reviewed
-
CT Scan: Image personally visualized and interpreted, Report Reviewed by me and Discussed with Patient
Ultrasound: Report Reviewed by me and Discussed with Patient
[2025-08-08 08:42] LABS: Glycohemoglobin (HgbA1c) 6.0 % (4.0-5.9)
[2025-08-08] MEDS: LASIX 40 MG PO ×2 (09:12→16:28)
[2025-08-08] MEDS: COREG 25 MG PO ×2 (09:13→21:07)
[2025-08-08] MEDS: PROTONIX 40 MG PO (09:13)
[2025-08-08 09:17] LABS: Urine Character Clear (Clear)
--- NOTE | 2025-08-08 09:25 | CON.CAR ---
Addendum entered and electronically signed by Enrique Corral MD 08/08/25 11:58:
Patient seen, interviewed and examined by me.
Well-appearing, no acute distress
Regular rate and rhythm with normal S1 and S2, no S3 no S4. There is a grade 1/6 apical holosystolic murmur and no rubs. PMI is normally placed.
Lungs are clear to auscultation bilaterally without wheezes rales or rhonchi.
Abdomen soft nontender nondistended with normoactive bowel sounds
Extremities show trace pretibial edema bilaterally no clubbing or cyanosis.
Neurologic exam is grossly nonfocal.
She has a known history of atrial fibrillation and underwent pulsed electric field ablation 01/08/2025. There has been no recurrence of atrial fibrillation since ablation.
She did have newly diagnosed atrial flutter diagnosed on June 18, 2025 and underwent successful cardioversion July 09, 2025, remaining in sinus rhythm ever since.
She is now admitted with acute cholecystitis and is tentatively planned for laparoscopic cholecystectomy August 10.
She has had rather chronic shortness of breath and reports that she has been followed by pulmonary for 'lung issues' and does have diagnosis of obstructive sleep apnea, treated with CPAP therapy.
She has had no chest pain.
Ischemic evaluation has included PET CT scanning November 2024 which is without evidence of ischemia.
She also has had heart failure with preserved ejection fraction although with control of her atrial arrhythmias she has had no recent recurrences.
From a cardiac standpoint she can be considered as not high risk for the planned laparoscopic cholecystectomy.
She is now 30 days out from her cardioversion and it would be reasonable to hold oral anticoagulation in preparation for her surgical procedure on Sunday and then resume anticoagulation once hemostasis is assured after surgery.
Non cardiac comorbid conditions such as her morbid obesity and her lung disease would have to further be considered for a complete preoperative risk assessment.
Original Note:
Consultation
Consultation Request
Date/Time Consultation Performed: 08/08/25
Requesting Provider: Dr. David
Performing Provider: Anna Antonio PA-C for Dr. Kalia Corral
Reason for Consultation: preop eval
Medical History
-
Chief Complaint: abd pain
History of Present Illness:
Patient is a 79-year-old female with past medical history of paroxysmal atrial fibrillation status post Shameka pulse PVI 01/08/25. On follow-up 06/18/2025 was noted to be in rate controlled atrial flutter which was new diagnosis for patient. She was
asymptomatic. She underwent successful cardioversion 07/09/2025. She now presents due to symptoms of right flank pain as well as nausea with progression over the last several days. By imaging noted to have evidence consistent with acute
cholecystitis. She is planned for lap camilo, tentatively Friday 08/10. Cardiology consulted for preoperative evaluation. She reports occasional twinges of chest discomfort, however no clear correlation with exertion, and never long-lasting. She
underwent PET/CT scan 11/2024 which was without evidence of ischemia, however did show mild to moderate coronary calcification. She reports some chronic shortness of breath, however reports 'lung issues' and is followed by pulmonary. Denies
palpitations
PMH:
Typical atrial flutter status post cardioversion 07/09/2025
Paroxysmal atrial fibrillation status post Shameka pulse PVI 01/08/25
Chronic anticoagulation with Eliquis
Chronic heart failure with preserved EF
Coronary artery mild to moderate calcifications noted on PET/CT scan 11/2024
Hypertension
Hyperlipidemia with history of statin intolerance
Aortic sclerosis
MINOR on CPAP
Morbid obesity
Prediabetes
Pneumatosis coli
AAA
Past Medical History
Past Medical History: Other (in HPI)
Social History
Tobacco: Non-Smoker
Alcohol: None
Personal:
Living: With Family
Employment: Retired
Family History
Family History: Cancer and Hypertension
Allergies / Home Medications
Allergy/AdvReac Type Severity Reaction Status Date / Time
adhesive Allergy Skin Verified 01/08/25 08:28
Peeling
aspartame Allergy Severe Verified 01/08/25 08:28
headache
aspirin Allergy GI Verified 01/08/25 08:28
discomfort-
GERD
betamethasone dipropionate Allergy patient Verified 01/08/25 08:28
(From Lotrisone) denies
cefuroxime Allergy Unknown Verified 01/08/25 08:28
celecoxib Allergy Muscle Verified 01/08/25 08:28
Weakness
cinnamon Allergy Severe Verified 01/08/25 08:28
Mouth Sores
ciprofloxacin Allergy Unknown Verified 01/08/25 08:28
clotrimazole (From Lotrisone) Allergy Rash Verified 01/08/25 08:28
dexamethasone Allergy Vision Verified 01/08/25 08:28
Problems
doxycycline Allergy Unknown Verified 01/08/25 08:28
duloxetine (From Cymbalta) Allergy Nausea, Verified 01/08/25 08:28
Headache,
Leg
Cramps,
Back Pain
evolocumab (From Repatha Allergy Diarrhea Verified 01/08/25 08:28
SureClick)
fluconazole Allergy Unknown Verified 01/08/25 08:28
hydrocodone (From Vicodin) Allergy Unknown Verified 01/08/25 08:28
imipramine Allergy Unknown Verified 01/08/25 08:28
ketchup Allergy Vomiting Verified 01/08/25 08:28
latex Allergy Rash Verified 07/09/25 12:35
prednisone Allergy Severe Verified 01/08/25 08:28
anxiety
attack
rofecoxib (From Vioxx) Allergy Muscle Verified 01/08/25 08:28
Weakness
Marfogu-UYM-WpY Reductase Allergy muscle Verified 01/08/25 08:28
Inhibitor (Vvcskby-Uof-Mkp weakness,
Reductase Inhibitor) GI issue
sulfamethoxazole (From Allergy SOB, Fever Verified 01/08/25 08:28
Bactrim)
trimethoprim (From Bactrim) Allergy SOB, Fever Verified 01/08/25 08:28
cefixime (From Suprax) AdvReac leg Verified 07/09/25 12:04
weakness
ANESTHESIA MEDICATIONS AdvReac sensitive Uncoded 01/08/25 08:28
to anesth,
Heaviness
of limbs
�Medication �Instructions �Recorded �Confirmed �Type
alpha lipoic acid 100 mg capsule 200 mg PO MOTH Supplement 10/13/13 08/08/25 History
fluticasone propionate 50 2 spray intranasal DAILY 10/13/13 08/08/25 History
mcg/actuation nasal
spray,suspension
ascorbic acid (vitamin C) 500 mg 500 mg PO MOWE Supplement 12/31/22 08/08/25 History
tablet (Vitamin C)
calcium 500 mg (as 1 tab PO DAILY Supplement 12/31/22 08/08/25 History
carbonate)-vitamin D3 5 mcg (200
unit) tablet (Calcium 500 + D)
cholecalciferol (vitamin D3) 10 10 mcg PO DAILY 12/31/22 08/08/25 History
mcg (400 unit) tablet (Vitamin D3)
cholecalciferol (vitamin D3) 25 25 mcg PO DAILY 12/31/22 08/08/25 History
mcg (1,000 unit) tablet (Vitamin
D3)
cyanocobalamin (vitamin B-12) 500 500 mcg PO DAILY Supplement 12/31/22 08/08/25 History
mcg tablet (Vitamin B-12)
omeprazole 20 mg capsule,delayed 20 mg PO DAILY Gastrointestinal 12/31/22 08/08/25 History
release issue
pyridoxine (vitamin B6) 100 mg 100 mg PO TUTH Supplement 12/31/22 08/08/25 History
tablet (Vitamin B-6)
vibegron 75 mg tablet (Gemtesa) 75 mg PO DAILY Urinary issue 12/31/22 08/08/25 History
coQ10 (ubiquinol) 100 mg capsule 100 mg PO DAILY Supplement 01/01/23 08/08/25 History
therapeutic multivitamin 1 tab PO DAILY Supplement 01/01/23 08/08/25 History
Reclast 1 dose IV [id number] 01/10/24 08/08/25 History
biotin 10,000 mcg chewable tablet 3,000 mcg PO DAILY Supplement 01/10/24 08/08/25 History
(Hair, Skin and Nails (biotin))
guaifenesin 600 mg tablet, 600 mg PO [id number] PRN cough 01/10/24 08/08/25 History
extended release 12 hr (Mucinex)
apixaban 5 mg tablet (Eliquis) 5 mg PO BID Blood Clot 08/11/24 08/08/25 History
Prevention/Tx
budesonide 0.5 mg/2 mL suspension 0.5 mg inhalation R DAILY 09/24/24 08/08/25 History
for nebulization Lung/Breathing Issues
famotidine 40 mg tablet 40 mg PO HSPRN PRN gerd 09/24/24 08/08/25 History
albuterol sulfate 90 mcg/actuation 2 puff inhalation PRN PRN SOB 12/24/24 08/08/25 History
aerosol inhaler
cod liver oil 1 cap PO WE 12/24/24 08/08/25 History
fluoride (sodium) 1.1 % dental 1 applic dental BID 12/24/24 08/08/25 History
paste
furosemide 40 mg tablet 40 mg PO BID AT 0800,1600 12/24/24 08/08/25 History
hydrocortisone 1 % topical cream 1 applic topical PRN PRN Rash, 12/24/24 08/08/25 History
itching
ketoconazole 2 % topical cream 1 applic topical PRN PRN Rash 12/24/24 08/08/25 History
lidocaine 4 % topical patch 1 patch topical DAILY Pain 12/24/24 08/08/25 History
(Lidocaine Pain Relief)
mometasone 0.1 % topical cream 1 applic topical DAILY PRN to ears 12/24/24 08/08/25 History
nystatin 100,000 unit/mL oral 5 ml PO TID 12/24/24 08/08/25 History
suspension
nystatin-triamcinolone 100,000 1 applic topical DAILY PRN rash 12/24/24 08/08/25 History
unit/g-0.1 % topical cream
omega-3 acid ethyl esters 1 gram 1 cap PO DAILY 12/24/24 08/08/25 History
capsule (Lovaza)
psyllium 625 mg PO DAILY 12/24/24 08/08/25 History
colesevelam 625 mg tablet (WelChol) 625 mg PO BID 07/09/25 08/08/25 History
carvedilol 12.5 mg tablet 25 mg PO DAILY 08/08/25 08/08/25 History
Review of Systems
-
History Source: Patient
All other systems: Negative unless noted
Physical Exam
Vital Signs
Temp Pulse Resp BP Pulse Ox
97.4 F 78 13 151/74 95
08/08/25 08:54 08/08/25 09:13 08/08/25 08:54 08/08/25 09:13 08/08/25 08:54
Lab Results
08/08/25 06:48
08/08/25 06:48
Physical Exam
General: No Apparent Distress, Comfortable and Other (obese)
HEENT: Normocephalic, Anicteric and Moist Mucous Membranes
Respiratory: Clear and Non Labored Respirations
Cardiac: S1/S2 and Regular Rhythm
GI: Soft, Non Tender, Non Distended and Normal Bowel Sounds
Musculoskeletal: No Clubbing, No Cyanosis and Edema (1+ of B/L ankles)
Skin: Warm and Dry
Neuro: AO x 3
Impression / Plan
-
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 Marysol Corral
Assessment:
Presentation with R flank pain, nausea
Acute cholecystitis
Typical atrial flutter status post cardioversion 07/09/2025
Paroxysmal atrial fibrillation status post Shameka pulse PVI 01/08/25
Chronic anticoagulation with Eliquis
Chronic heart failure with preserved EF
Coronary artery mild to moderate calcifications noted on PET/CT scan 11/2024
Hypertension
Hyperlipidemia with history of statin intolerance
Aortic sclerosis
MINOR on CPAP
Morbid obesity
Prediabetes
Pneumatosis coli
AAA
Echo 09/29/2024: EF 74%, trace MR, PAP 36 mmHg
PET/CT stress test 11/2024: Small fixed inferior defect without evidence of ischemia, EF greater than 65%, AAA measuring upto 4.5cm
Plan:
- Patient is a 79-year-old female who presents with right flank pain and nausea and is found to have acute cholecystitis by imaging. General surgery following. Patient tells me she is tentatively planned for lap cholecystectomy on Friday 08/10.
Cardiology has been consulted for preoperative assessment
- She underwent Shameka pulse PVI 01/08/25 and subsequently developed typical atrial flutter. She underwent successful cardioversion 07/09/2025. She has not felt palpitations since that time, however also was asymptomatic of atrial flutter in past
- Check EKG and place on telemetry. EKG 07/09 was sinus rhythm with PACs
- She is 30 days out from cardioversion as of today, so lower risk for CVA as holding Eliquis, particularly if remains in sinus rhythm
- Continue outpatient Coreg as blood pressure allows
- Underwent PET/CT stress test 11/2024 with results as above, no evidence of active ischemia, but does have mild to moderate coronary calcifications noted
- She is felt to be at moderate cardiovascular risk given comorbidities as above, however this risk is not prohibitive to proceed
- Would resume Eliquis as soon as safe postoperatively
- Follow volume status. Continue p.o. Lasix 40 mg twice daily for now. Check proBNP as part of perioperative assessment
- Discussed with nursing
Data Reviewed
-
EKG: Tracing Personally Visualized and interpreted
Medical Tests (Nuc Med, Echo etc): Report Reviewed by me
Labs: Labs Reviewed by me
Old Records: Reviewed
[2025-08-08 09:26] LABS: Urine Red Blood Cell 0-2 /HPF (0-2); Urine White Cell 0-2 /HPF (0-5)
--- NOTE | 2025-08-08 11:07 | CON.GS ---
Addendum entered and electronically signed by Devante David MD 08/08/25 15:11:
Patient is a 79 yo F with a PMH of morbid obesity, GERD, A-fib (on Eliquis, LD 08/07 PM) s/p recent cardioversion here at on 07/09, HFpEF, NIDDM, MINOR, and s/p open WALTER. Ms. Yan presents with 2 to 3 days of back and abdominal discomfort. She
states that her symptoms began initially as back pain. Over the past 24 hours she has noticed RIGHT sided abdominal discomfort. Symptoms started shortly after dinner yesterday evening. Associated nausea and vomiting. She denies any fevers, but
reports subjective chills. She denies any jaundice, pale stools, or tea colored urine. She denies any knowledge or issues as a relates to her gallbladder.
Of note, she has a poor functional status and is unable to walk up and down a flight of stairs.
Gen: NAD
Abd: soft, tender in RUQ, obese (exam limited), no diffuse peritonitis, prior lower midline well healed
Labs and imaging were reviewed.
Patient is a 79 yo F p/w symptomatic cholelithiasis likely cholecystitis, less likely choledocholithiasis
Workup including labs, CT scan, and ultrasound were reviewed. Some concern for choledocholithiasis based on rising bilirubin and LFTs in the setting of a dilated CBD visualized on ultrasound. The natural history and pathophysiology of biliary and
stone disease was discussed. Anatomy was briefly reviewed. She is at increased risk for operative complications as a relates to her general medical condition including morbid obesity and poor cardiopulmonary functional status as well as her recent
anticoagulation. Recommend NPO and IV fluids, hold Eliquis. Repeat labs tomorrow. May need further workup for choledocholithiasis pending her labs. Tentative plan for cholecystectomy tomorrow pending cardiac clearance/risk stratification and
repeat labs tomorrow. All questions answered.
-- NPO, IVF
-- Abx: Zosyn
-- Repeat labs tomorrow
-- Hold Eliquis
-- Cardiology consult
Original Note:
Consultation
-
Date/Time Consultation Performed: 08/08/25 1411
Medical History
-
Chief Complaint: mid back/ruq pain
History of Present Illness:
Ms Yan is a 79 yo female with a h/o morbid obesity, minor on cpap, Afib/flutter s/p ablation with recent cardioversion on Eliquis (LD 08/07 pm), HFpEf, diet controlled DM and WALTER who notes that 2-3 days ago after dinner she developed mid back pain
radiating around her flank over to her RUQ. She was able to tolerate the discomfort but after dinner last night, the pain became more severe and was accompanied by nausea with vomiting prompting her to present for evaluation. She denies acholic
stools or constipation. She passed 3 Bm's yesterday. She denies active nausea currently but still with discomfort in her back to the RUQ. She denies fevers or chills. On exam, she has RUQ tenderness on exam.
Past Medical History
Past Medical History: Arrhythmias (afib/aflutte), CAD, CHF, Hypercholesterolemia, NIDDM, Valvular Disease (aortic stenosis) and Other (morbid obesity, minor on cpap, AAA)
Past Surgical History: Cardiac (ablation) and Gynecological (WALTER)
Social History
Tobacco: Non-Smoker
Alcohol: None
Family History
Family History: Reviewed & Not Pertinent
Allergies / Home Medications
Allergy/AdvReac Type Severity Reaction Status Date / Time
adhesive Allergy Skin Verified 01/08/25 08:28
Peeling
aspartame Allergy Severe Verified 01/08/25 08:28
headache
aspirin Allergy GI Verified 01/08/25 08:28
discomfort-
GERD
betamethasone dipropionate Allergy patient Verified 01/08/25 08:28
(From Lotrisone) denies
cefuroxime Allergy Unknown Verified 01/08/25 08:28
celecoxib Allergy Muscle Verified 01/08/25 08:28
Weakness
cinnamon Allergy Severe Verified 01/08/25 08:28
Mouth Sores
ciprofloxacin Allergy Unknown Verified 01/08/25 08:28
clotrimazole (From Lotrisone) Allergy Rash Verified 01/08/25 08:28
dexamethasone Allergy Vision Verified 01/08/25 08:28
Problems
doxycycline Allergy Unknown Verified 01/08/25 08:28
duloxetine (From Cymbalta) Allergy Nausea, Verified 01/08/25 08:28
Headache,
Leg
Cramps,
Back Pain
evolocumab (From Repatha Allergy Diarrhea Verified 01/08/25 08:28
SureClick)
fluconazole Allergy Unknown Verified 01/08/25 08:28
hydrocodone (From Vicodin) Allergy Unknown Verified 01/08/25 08:28
imipramine Allergy Unknown Verified 01/08/25 08:28
ketchup Allergy Vomiting Verified 01/08/25 08:28
latex Allergy Rash Verified 07/09/25 12:35
prednisone Allergy Severe Verified 01/08/25 08:28
anxiety
attack
rofecoxib (From Vioxx) Allergy Muscle Verified 01/08/25 08:28
Weakness
Pejzrql-NCV-[id number] Reductase Allergy muscle Verified 01/08/25 08:28
Inhibitor (Iixcvdz-Ifg-Fpr weakness,
Reductase Inhibitor) GI issue
sulfamethoxazole (From Allergy SOB, Fever Verified 01/08/25 08:28
Bactrim)
trimethoprim (From Bactrim) Allergy SOB, Fever Verified 01/08/25 08:28
cefixime (From Suprax) AdvReac leg Verified 07/09/25 12:04
weakness
ANESTHESIA MEDICATIONS AdvReac sensitive Uncoded 01/08/25 08:28
to anesth,
Heaviness
of limbs
�Medication �Instructions �Recorded �Confirmed �Type
alpha lipoic acid 100 mg capsule 200 mg PO MOTH Supplement 10/13/13 08/08/25 History
fluticasone propionate 50 2 spray intranasal DAILY 10/13/13 08/08/25 History
mcg/actuation nasal
spray,suspension
ascorbic acid (vitamin C) 500 mg 500 mg PO MOWE Supplement 12/31/22 08/08/25 History
tablet (Vitamin C)
calcium 500 mg (as 1 tab PO DAILY Supplement 12/31/22 08/08/25 History
carbonate)-vitamin D3 5 mcg (200
unit) tablet (Calcium 500 + D)
cholecalciferol (vitamin D3) 10 10 mcg PO DAILY 12/31/22 08/08/25 History
mcg (400 unit) tablet (Vitamin D3)
cholecalciferol (vitamin D3) 25 25 mcg PO DAILY 12/31/22 08/08/25 History
mcg (1,000 unit) tablet (Vitamin
D3)
cyanocobalamin (vitamin B-12) 500 500 mcg PO DAILY Supplement 12/31/22 08/08/25 History
mcg tablet (Vitamin B-12)
omeprazole 20 mg capsule,delayed 20 mg PO DAILY Gastrointestinal 12/31/22 08/08/25 History
release issue
pyridoxine (vitamin B6) 100 mg 100 mg PO TUTH Supplement 12/31/22 08/08/25 History
tablet (Vitamin B-6)
vibegron 75 mg tablet (Gemtesa) 75 mg PO DAILY Urinary issue 12/31/22 08/08/25 History
coQ10 (ubiquinol) 100 mg capsule 100 mg PO DAILY Supplement 01/01/23 08/08/25 History
therapeutic multivitamin 1 tab PO DAILY Supplement 01/01/23 08/08/25 History
Reclast 1 dose IV [id number] 01/10/24 08/08/25 History
biotin 10,000 mcg chewable tablet 3,000 mcg PO DAILY Supplement 01/10/24 08/08/25 History
(Hair, Skin and Nails (biotin))
guaifenesin 600 mg tablet, 600 mg PO [id number] PRN cough 01/10/24 08/08/25 History
extended release 12 hr (Mucinex)
apixaban 5 mg tablet (Eliquis) 5 mg PO BID Blood Clot 08/11/24 08/08/25 History
Prevention/Tx
budesonide 0.5 mg/2 mL suspension 0.5 mg inhalation R DAILY 09/24/24 08/08/25 History
for nebulization Lung/Breathing Issues
famotidine 40 mg tablet 40 mg PO HSPRN PRN gerd 09/24/24 08/08/25 History
albuterol sulfate 90 mcg/actuation 2 puff inhalation PRN PRN SOB 12/24/24 08/08/25 History
aerosol inhaler
cod liver oil 1 cap PO WE 12/24/24 08/08/25 History
fluoride (sodium) 1.1 % dental 1 applic dental BID 12/24/24 08/08/25 History
paste
furosemide 40 mg tablet 40 mg PO BID AT 0800,1600 12/24/24 08/08/25 History
hydrocortisone 1 % topical cream 1 applic topical PRN PRN Rash, 12/24/24 08/08/25 History
itching
ketoconazole 2 % topical cream 1 applic topical PRN PRN Rash 12/24/24 08/08/25 History
lidocaine 4 % topical patch 1 patch topical DAILY Pain 12/24/24 08/08/25 History
(Lidocaine Pain Relief)
mometasone 0.1 % topical cream 1 applic topical DAILY PRN to ears 12/24/24 08/08/25 History
nystatin 100,000 unit/mL oral 5 ml PO TID 12/24/24 08/08/25 History
suspension
nystatin-triamcinolone 100,000 1 applic topical DAILY PRN rash 12/24/24 08/08/25 History
unit/g-0.1 % topical cream
omega-3 acid ethyl esters 1 gram 1 cap PO DAILY 12/24/24 08/08/25 History
capsule (Lovaza)
psyllium 625 mg PO DAILY 12/24/24 08/08/25 History
colesevelam 625 mg tablet (WelChol) 625 mg PO BID 07/09/25 08/08/25 History
carvedilol 12.5 mg tablet 25 mg PO DAILY 08/08/25 08/08/25 History
Review of Systems
-
History Source: Patient
All other systems: Negative unless noted
A 10 point review of systems was completed, and was negative except as per HPI.
Physical Exam
Vital Signs
Temp Pulse Resp BP Pulse Ox
97.4 F 78 13 151/74 95
08/08/25 08:54 08/08/25 09:13 08/08/25 08:54 08/08/25 09:13 08/08/25 08:54
08/07/25 08/08/25 08/09/25
06:59 06:59 05:59
Actual Weight 140.614 kg
Body Mass Index (BMI) 53.3
Lab Results
08/08/25 06:48
08/08/25 06:48
WBC 9.5 10^3/uL (4.8-10.8) 08/08/25 06:48
Hgb 12.1 g/dL (12.0-16.0) 08/08/25 06:48
Hct 37.2 % (37.0-47.0) 08/08/25 06:48
Plt Count 216 10^3/uL (130-400) 08/08/25 06:48
Abs Immat Gran (auto) 0.0 10^3/uL (0-0.05) 08/08/25 00:47
Neutrophils % 80.8 % (42.2-75.2) H 08/08/25 00:47
Physical Exam
General: Well Developed and Well Nourished
HEENT: Normocephalic and Moist Mucous Membranes
GI: Soft, Tender (RUQ) and Obese
Skin: Warm and Dry
Neuro: Awake, Alert and AO x 3
Psych: Calm
Data Reviewed
-
CT Scan: Image Personally Visualized and interpreted, Report Reviewed by me, Discussed with Physician and Discussed with Patient
Ultrasound: Image Personally Visualized and interpreted, Report Reviewed by me, Discussed with Physician and Discussed with Patient
Labs: Labs Reviewed by me, Discussed with Physician and Discussed with Patient
Old Records: Reviewed
Assessment / Plan
-
Ms Yan is a 79 yo female with a h/o morbid obesity, minor on cpap, Afib/flutter s/p ablation with recent cardioversion on Eliquis (LD 08/07 pm), HFpEf, diet controlled DM and WALTER who notes that 2-3 days ago after dinner she developed mid back pain
radiating around her flank over to her RUQ. She was able to tolerate the discomfort but after dinner last night, the pain became more severe and was accompanied by nausea with vomiting prompting her to present for evaluation. US imaging with
cholelithiasis and thickened GB with CBD dilated to 11mm. CT abd /pelvis with pericholecystic edema (mild) and some fat stranding. Suspect acute calculous cholecystitis. RUQ tenderness persists. Leukocytosis present on admission and now resolved on
ABX. LFT's normal on presentation, now with mild transaminitis. bilirubin increase from 0.7 to 1.2 since presentation. Afebrile. VSS.
Plan:
Would recommend operative intervention with laparoscopic cholecystectomy vs percutaneous cholecystostomy tube in management pending cardiac risk stratification
Cards consulted for risk stratification, appreciate evaluation
Continue IV abx
Trend labs. If bilirubin trends up tomorrow will plan MRCP
NPO with sips of clears
Hold Eliquis for OR
Analgesics/antiemetics prn
Medical management as per hosptialist, d/w Dr. White during rounds
[2025-08-08] MEDS: MYCOSTATIN ORAL SUSPENSION 5 ML PO ×3 (11:45→21:07)
[2025-08-08] MEDS: NON-FORMULARY ITEM 75 MG PO (11:46)
[2025-08-08 12:38] LABS: Glucose - Point of Care 125 mg/dl (70-99)
[2025-08-08] MEDS: NOVOLOG FLEXPEN-LOW RESISTANCE SC ×3 (12:48→23:58)
--- NOTE | 2025-08-08 13:40 | CM ---
I.A: Completed By TAM Grant.
Patient lives with her in a 2 Story House with 1 step to enter, uses a rolling walker, wheelchair, has CPAP at Home, as well as Nebulizer via [employer], and had used [facility] before. No Inpatient Rehab.
PCP: Kimberly Altman
Pharmacy: [facility]
Patient has transportation Home. PLAN: Anticipate Home No Needs vs. Home VN.
[2025-08-08] MEDS: DESENEX/MITRAZOL/ZEASORB 1 APPLIC TOPICAL ×2 (15:31→21:07)
[2025-08-08] MEDS: LIDOCAINE 4% PATCH 1 PATCH TOPICAL (16:08)
[2025-08-08 17:37] LABS: Glucose - Point of Care 95 mg/dl (70-99)
[2025-08-08] MEDS: TYLENOL 650 MG PO (21:06)
[2025-08-08] MEDS: REMOVE LIDOCAINE PATCH 1 PATCH REMOVE (21:08)
[2025-08-08 23:58] LABS: Glucose - Point of Care 135 mg/dl (70-99)
[2025-08-09] VITALS (12 sets, daily range): BP systolic 92–173; BP diastolic 40–81
[2025-08-09] MEDS: ZOSYN 50 IV ×4 (05:12→21:05)
[2025-08-09 06:14] LABS: Glucose - Point of Care 114 mg/dl (70-99)
[2025-08-09 06:26] LABS: Hematocrit 35.2 % (37.0-47.0); Hemoglobin 11.6 g/dL (12.0-16.0); Mean Corp Hgb Conc. 33.0 g/dL (33.0-37.0); Mean Corpuscular Volume 86.7 fL (81.0-99.0); Platelet Count 215 10^3/uL (130-400); Red Cell Dist. Width 13.9 % (11.5-14.5)
[2025-08-09] MEDS: NOVOLOG FLEXPEN-LOW RESISTANCE SC ×3 (06:39→17:49)
[2025-08-09 06:50] LABS: ALT (SGPT) 66 U/L (0-35); AST (SGOT) 52 U/L (14-36); Albumin 3.8 g/dl (3.5-5.0); Alkaline Phosphatase 126 U/L (38-126); Blood Urea Nitrogen 11 mg/dl (7-17); Calcium 8.3 mg/dl (8.4-10.2); Carbon Dioxide 34 mmol/L (22-30); Chloride 100 mmol/L (98-107); Estimated Creatinine Clearance 59 ml/min; Glucose 111 mg/dl (70-99); Potassium 3.7 mmol/L (3.5-5.1); Sodium 139 mmol/L (135-145); Total Protein 6.5 g/dl (6.3-8.2); eGFR 51.43
--- NOTE | 2025-08-09 07:43 | W.PN.HOSP.TC ---
Addendum entered and electronically signed by Dario White MD 08/09/25 14:27:
Attending�addendum:
I saw and evaluated the patient. I reviewed the resident�s note and agree with findings and plan as documented in the resident�s note.��patient seen and examined at bedside at the PACU, status post lap camilo, denies any chest pain or shortness of
breath.
Physical�exam:
GENERAL : Patient is awake, alert, oriented x3
HEENT: Nonicteric sclerae, PERRLA, EOMI. Oropharynx clear. Moist mucous membranes. Conjunctivae appear well perfused.
CHEST: Chest wall is nontender.
HEART: Regular rate and rhythm without murmurs.
LUNGS: Clear to auscultation bilaterally.
ABDOMEN: Tender at surgical site
RECTAL: Deferred.
MUSCLES/EXTREMITIES: No abnormal range of motion, no swelling.SKIN: No rash, no excessive bruising, petechiae, or purpura.
NEUROLOGIC: Cranial nerves II-XII intact without motor/sensory deficit.
�
Assessment/plan:
Acute cystitis/cholelithiasis status post lap camilo
Resume Eliquis once cleared by surgery
Paroxysmal A-fib.
Now sinus rhythm.
Continue carvedilol.
Continue digital art director
Chronic diastolic CHF.
Continue Lasix
CODE STATUS: Full code
DVT prophylaxis: Eliquis on hold, SCD
Diet: NPO
Disposition: Status post lab choly.
�
Total time spent on today�s encounter was 51 minutes which included time spent in counseling the patient/family regarding diagnosis and treatment plan as listed above, goals of care, and symptom management. Case was discussed with nursing staff,
specialists, and care coordinators/case management. All labs and imaging personally reviewed by me. Remainder the time spent in detailed review of previous records, lab data, imaging, and other medical provider documentation.
Original Note:
Today's Communication/Plan
-
OR today.
Assessment / Plan
Assessment / Plan
Rachell Yan is a 79F w/ PMHx atrial fibrillation/flutter (recent cardioversion 07/09/2025), HFpEF, and morbid obesity w/ MINOR who presented to the ED late evening of 08/07 c/o abdominal pain. Pain started in the right flank 2 to 3 days ago and was
accompanied by mild nausea that improved with belching. Symptoms progressed over the next few days. On day of arrival, severe pain (11 out of 10), clamminess, and several loose bowel movements with 1 episode of emesis in the ED. In the ED, WBC
12.3 K with no abnormalities on CMP and a normal lipase. Ultrasound showed gallbladder distention with sludge and likely gallstones. Gallbladder thickness up to 5 mm. Patient was admitted for surgical consult. Started on prophylactic Zosyn.
1. Cholelithiasis +/- Acute Cholecystitis
- Sludge and gallstones on US
- Equivocal wall measurements without pericholecystic fluid
- LFTs trended up initially, now downtrending
- Continue IV Zosyn
- For OR Today w/ Dr. David
2. Atrial Fibrillation/Flutter
- s/p PVI ablation for a/fib; recent episode of A/flutter 07/09 with successful cardioversion
- NSR at present
- Last dose of Eliquis on the evening of 08/07 (hold eliquis for OR)
- Continue Coreg
- Cardiology consult for cardiovascular clearance in the setting of pending lap camilo
3. Chronic HFpEF
- Continue Lasix 40mg PO BID
- Daily weights, I/Os
4. Type 2 DM
- Sliding Scale
- Hba1c = 6.0
5. Morbid Obesity
6. Asthma without Acute Exacerbation
- continue INH
7. Eczema
8. Fibromyalgia
DVT PPx: Hold eliquis for OR, SCDs
Diet: Low CHO, NPO s/p MN 08/08
Code: FULL
Anticipated Discharge: 24 - 48 hours
Subjective/Interval History
-
Date of Service: August 09, 2025
Rachell Yan is a 79F w/ PMHx atrial fibrillation/flutter (recent cardioversion 07/09/2025), HFpEF, and morbid obesity w/ MINOR who presented to the ED late evening of 08/07 c/o progressively worsening RUQ abdominal pain and R flank pain over a few
days. In the ED, WBC 12.3 K with no abnormalities on CMP and a normal lipase. Ultrasound showed gallbladder distention with sludge and likely gallstones. Gallbladder thickness up to 5 mm. Patient was admitted for surgical evaluation. Started on
prophylactic Zosyn.
HPI: No acute complaints this morning. Abdominal pain controlled. No SOB, CP.
Objective Data
-
Labs:
Laboratory Results
08/09/25
05:57
WBC 8.2
Hgb 11.6 L
Hct 35.2 L
Plt Count 215
Sodium 139
Potassium 3.7
Chloride 100
Carbon Dioxide 34 H
BUN 11
Creatinine 1.1 H
Glucose 111 H
Calcium 8.3 L
Total Bilirubin 0.7
AST 52 H
ALT 66 H
Alkaline Phosphatase 126
Vital Signs:
Vital Signs
Temp Pulse Resp BP Pulse Ox
97.8 F 73 15 129/76 95
08/09/25 03:12 08/09/25 03:12 08/09/25 03:12 08/09/25 03:12 08/09/25 03:12
I&O
08/08/25 08/09/25 08/10/25
06:59 05:59 06:59
Intake Total 100 / 100
Output Total 650 / 650
Balance -550 / -550
Review of Systems
-
History Source: Patient
All other systems: Reviewed and negative
Physical Exam
-
General: Well Developed, Well Nourished, No Apparent Distress and Comfortable
HEENT: Normocephalic, Atraumatic and Moist Mucous Membranes
Respiratory: Clear to Auscultation and Non Labored Respirations; Negative Wheezes, Rales, Rhonchi or Crackles
GI: Soft, Nontender and Nondistended
Musculoskeletal: No Clubbing, No Cyanosis and Other (2+ lower extremity edema bilaterally to the level just above the ankle. )
Skin: Warm
Neuro: Awake, Alert and Oriented
Psych: Calm
Data Reviewed
-
Labs: Labs Reviewed by me and Discussed with Patient
[2025-08-09] MEDS: PULMICORT 0.5 MG INH ×2 (08:09→18:10)
[2025-08-09] MEDS: NON-FORMULARY ITEM 75 MG PO (08:27)
[2025-08-09] MEDS: COREG 25 MG PO ×2 (08:27→20:57)
[2025-08-09] MEDS: LASIX 40 MG PO ×2 (08:27→16:48)
[2025-08-09] MEDS: PROTONIX 40 MG PO (08:27)
[2025-08-09] MEDS: MYCOSTATIN ORAL SUSPENSION 5 ML PO ×3 (08:27→21:05)
[2025-08-09] MEDS: LIDOCAINE 4% PATCH 1 PATCH TOPICAL (08:28)
[2025-08-09] MEDS: DESENEX/MITRAZOL/ZEASORB 1 APPLIC TOPICAL ×2 (08:30→21:00)
--- NOTE | 2025-08-09 09:24 | W.PN.GS2 ---
Today's Communication / Plan
-
-- Laparoscopic cholecystectomy with IOC
-- NPO, IVF
-- Abx: Zosyn
Assessment / Plan
-
Patient is a 79 yo F p/w acute cholecystitis
AVSS
Lab notable for normal WBC, downtrending bilirubin and LFTs
Clinical stability over the past 24 hours. Laboratory improvement. The natural history and pathophysiology of biliary stone disease has been previously discussed. Options for management have been previously reviewed. Given her persistent
symptoms and high risk for recurrent attacks would recommend cholecystectomy. She is over 24 hours since her last dose of Eliquis.
Plan for laparoscopic cholecystectomy with intraoperative cholangiogram. The procedure itself, as well as the risks, benefits, and alternatives was discussed. Specifically, we discussed the risks of bleeding (increased risk), infection, injury to
surrounding structures, wound complications, and need for open procedure. We discussed that her morbid obesity complicates her procedure. Typical postprocedural recovery was discussed. All questions answered. Consent signed.
-- Laparoscopic cholecystectomy with IOC
-- NPO, IVF
-- Abx: Zosyn
Subjective Data
-
Date of Service: August 09, 2025
No major complaints. Denies worsening pain. No nausea or vomiting. Afebrile.
Objective Data
-
Intake and Output
08/08/25 08/09/25 08/10/25
06:59 05:59 06:59
Intake Total 100 / 100
Output Total 650 / 650
Balance -550 / -550
Intake:
IV piggybacks 100 / 100
Output:
Urine, Voided 650 / 650
Other:
Number of approximated LARGE 1
amounts of urine
Vital Signs
Temp Pulse Resp BP Pulse Ox
97.9 F 74 16 121/74 93
08/09/25 07:35 08/09/25 08:27 08/09/25 08:11 08/09/25 08:27 08/09/25 08:11
Lab Results
08/09/25 05:57
08/09/25 05:57
Calcium 8.3 mg/dl (8.4-10.2) L 08/09/25 05:57
Total Bilirubin 0.7 mg/dl (0.2-1.3) 08/09/25 05:57
AST 52 U/L (14-36) H 08/09/25 05:57
ALT 66 U/L (0-35) H 08/09/25 05:57
Alkaline Phosphatase 126 U/L (38-126) 08/09/25 05:57
Total Protein 6.5 g/dl (6.3-8.2) 08/09/25 05:57
Albumin 3.8 g/dl (3.5-5.0) 08/09/25 05:57
Physical Exam
-
Gen: NAD
Abd: soft, mild tenderness in RUQ, obese (exam limited), non-peritoneal
Patient has a clinton catheter: No
Patient has a central line: No
--- NOTE | 2025-08-09 09:27 | W.SUR.PREOP ---
Pre-Operative Surgical Note
-
I have examined this patient prior to the performance of the scheduled procedure.
The patient's condition is unchanged from the time of the current History and
Physical and the patient is able to undergo the scheduled procedure.
--- NOTE | 2025-08-09 10:40 | PTCARENOTE ---
Telephone report given to COMMERCIAL ART INSTRUCTORALF Tobin; patient transported to OR @10:38 with Zosyn infusing, telemetry, & b/l hearing aids in ears with container for placement after talking with surgical team.
--- NOTE | 2025-08-09 13:19 | W.IMMPOSTOP ---
Surgical Immed Post Op Note
-
Primary Surgeon: Frankie
Assisting Surgeon: CHAYA Elena
Pre-op Diagnosis: Acute cholecystitis
Post-op Diagnosis: Acute cholecystitis
Procedure Performed: Laparoscopic cholecystectomy with cholangiogram
Anesthesia Type: General
Specimen / Cultures:
1. Gallbladder
Estimated Blood Loss: 7 cc
Complications: None
Operative Findings:
1. Acutely inflamed GB, omental adhesions, soft, small gravel stones
2. Critical view
3. IOC with anatomy confirmed, faint passage of contrast into duodenum, unable to pass wire beyond the ampula
4. Duct and artery with clips, duct secured with 0 PDS Endoloop
[2025-08-09] MEDS: NOVOLOG vial 1 UNITS SC (13:44)
[2025-08-09 13:50] LABS: Glucose - Point of Care 193 mg/dl (70-99)
[2025-08-09] MEDS: NORMOSOL-R/PLASMALYTE-A 1000 IV (14:50)
[2025-08-09] MEDS: DILAUDID 0.5 MG IV ×2 (15:37→20:55)
[2025-08-09] MEDS: LOVENOX 40 MG SC (16:48)
[2025-08-09 17:40] LABS: Glucose - Point of Care 130 mg/dl (70-99)
[2025-08-09] MEDS: REMOVE LIDOCAINE PATCH 1 PATCH REMOVE (20:59)
[2025-08-09 21:52] LABS: Glucose - Point of Care 139 mg/dl (70-99)
[2025-08-10 03:20] VITALS: BP 101/69
[2025-08-10] MEDS: NORMOSOL-R/PLASMALYTE-A 1000 IV (04:01)
[2025-08-10] MEDS: ZOSYN 50 IV ×2 (04:02→09:29)
[2025-08-10] MEDS: DILAUDID 0.5 MG IV (04:16)
[2025-08-10 04:20] VITALS: BMI 52.8
[2025-08-10 07:15] VITALS: BP 150/70
[2025-08-10 07:23] LABS: Glucose - Point of Care 118 mg/dl (70-99)
--- NOTE | 2025-08-10 07:57 | W.PN.HOSP.TC ---
Today's Communication/Plan
-
Discharge today.
Assessment / Plan
Assessment / Plan
Rachell Yan is a 79F w/ PMHx atrial fibrillation/flutter (recent cardioversion 07/09/2025), HFpEF, and morbid obesity w/ MINOR who presented to the ED late evening of 08/07 c/o abdominal pain. Pain started in the right flank 2 to 3 days ago and was
accompanied by mild nausea that improved with belching. Symptoms progressed over the next few days. On day of arrival, severe pain (11 out of 10), clamminess, and several loose bowel movements with 1 episode of emesis in the ED. In the ED, WBC
12.3 K with no abnormalities on CMP and a normal lipase. Ultrasound showed gallbladder distention with sludge and likely gallstones. Gallbladder thickness up to 5 mm. Patient was admitted for surgical consult. Started on prophylactic Zosyn.
1. Cholelithiasis with Acute Cholecystitis
- Sludge and gallstones on US
- Equivocal wall measurements without pericholecystic fluid
- POD #1 for lap camilo w/ IOC
- IOC was limited study
- Per surgery, LFTs within an appropriate range status post procedure, with less concern for ductal stone retention
- Okay to discharge
2. History of Atrial Fibrillation/Flutter
- s/p PVI ablation for a/fib; recent episode of A/flutter 07/09 with successful cardioversion
- NSR at present
- Last dose of Eliquis on the evening of 08/07 (hold eliquis for OR)
- Restart Eliquis 48 hours after procedure (first dose evening of 08/11/25)
- Continue Coreg
3. Chronic HFpEF without exacerbation
- Continue Lasix 40mg PO BID
- Daily weights, I/Os
4. Type 2 DM
- Sliding Scale
- Hba1c = 6.0
5. Morbid Obesity
6. Asthma without Acute Exacerbation
- continue INH
7. Eczema
8. Fibromyalgia
DVT PPx: Hold eliquis for OR, SCDs
Diet: Low CHO, low salt
Code: FULL
Anticipated Discharge: Today
Subjective/Interval History
-
Date of Service: August 10, 2025
Patient is POD#1 s/p lap camilo. She tolerated the procedure well.
Today, the patient endorses pain at the incision sites and some mild abdominal pain.
Otherwise feels okay. She denies nausea or vomiting. Currently tolerating clear liquid diet without issue. Denies SOB.
Objective Data
-
Labs:
Laboratory Results
08/10/25
07:23
WBC Pending
Hgb Pending
Hct Pending
Plt Count Pending
Sodium Pending
Potassium Pending
Chloride Pending
Carbon Dioxide Pending
BUN Pending
Creatinine Pending
Glucose Pending
Calcium Pending
Total Bilirubin Pending
AST Pending
ALT Pending
Alkaline Phosphatase Pending
Vital Signs:
Vital Signs
Temp Pulse Resp BP Pulse Ox
97.8 F 75 18 101/69 93
08/10/25 03:20 08/10/25 03:20 08/10/25 03:20 08/10/25 03:20 08/10/25 03:20
I&O
08/09/25 08/10/25 08/11/25
05:59 06:59 06:59
Intake Total 100 / 100 3540 / 3540
Output Total 650 / 650
Balance -550 / -550 3540 / 3540
Review of Systems
-
History Source: Patient
All other systems: Reviewed and negative
Physical Exam
-
General: Well Developed, Well Nourished, No Apparent Distress, Comfortable and Morbidly Obese
HEENT: Normocephalic, Atraumatic, Moist Mucous Membranes and Anicteric
Respiratory: Clear to Auscultation and Non Labored Respirations
Cardiac: S1/S2
GI: Soft, Nondistended and Other (hypoactive bowel sounds, mildly tender in upper abdomen; port incision sites are clean, dry, and intact without erythema or ecchymosis)
Musculoskeletal: No Clubbing, No Cyanosis and No Edema
Skin: Warm and Dry
Neuro: Awake, Alert and Oriented
Psych: Calm
Data Reviewed
-
Medical Tests (Nuc Med, Echo etc): Report Reviewed by me and Discussed with Patient
Labs: Labs Reviewed by me and Discussed with Patient
[2025-08-10] MEDS: NOVOLOG FLEXPEN-LOW RESISTANCE SC ×2 (08:29→16:17)
[2025-08-10 08:36] LABS: Hematocrit 35.3 % (37.0-47.0); Hemoglobin 11.6 g/dL (12.0-16.0); Mean Corp Hgb Conc. 32.9 g/dL (33.0-37.0); Mean Corpuscular Volume 85.3 fL (81.0-99.0); Platelet Count 227 10^3/uL (130-400); Red Cell Dist. Width 14.0 % (11.5-14.5)
[2025-08-10] MEDS: LASIX 40 MG PO ×2 (08:38→15:29)
[2025-08-10] MEDS: PROTONIX 40 MG PO (08:38)
[2025-08-10] MEDS: MYCOSTATIN ORAL SUSPENSION 5 ML PO ×2 (08:38→15:29)
[2025-08-10] MEDS: TYLENOL 650 MG PO (08:39)
[2025-08-10] MEDS: COREG 25 MG PO (08:39)
[2025-08-10] MEDS: LIDOCAINE 4% PATCH 1 PATCH TOPICAL (08:39)
[2025-08-10] MEDS: NON-FORMULARY ITEM 75 MG PO (08:40)
[2025-08-10] MEDS: PULMICORT 0.5 MG INH (08:44)
[2025-08-10] MEDS: DESENEX/MITRAZOL/ZEASORB 1 APPLIC TOPICAL (08:44)
--- NOTE | 2025-08-10 09:12 | W.PN.GS2 ---
Today's Communication / Plan
-
advance diet
Assessment / Plan
-
Patient is a 79 yo F p/w acute cholecystitis now POD #1 lap camilo with IOC
AVSS
Lab notable for mildly elevated WBC (reactive)
Normal bilirubin, mild transaminitis (expected post procedure)
Plan:
Advance to LFD
Analgesics prn
No need for further antibiotics
Hold Eliquis for 48hours post op
Dispo planning pending pain control and PO tolerance
Subjective Data
-
Date of Service: August 10, 2025
Pt seen and examined at bedside with Dr. Soria. Soreness to upper incision. Denies n/v. Tolerating clears.
Objective Data
-
Intake and Output
08/09/25 08/10/25 08/11/25
05:59 06:59 06:59
Intake Total 100 / 100 3540 / 3540
Output Total 650 / 650
Balance -550 / -550 3540 / 3540
Intake:
Oral fluids 1440 / 1440
IV fluids (Total) 2000 / 2000
Normosol 100 / 100
IV piggybacks 100 / 100 100 / 100
Output:
Urine, Voided 650 / 650
Other:
Number of approximated SMALL 1
amounts of urine
Number of approximated MODERATE 3
amounts of urine
Number of approximated LARGE 1 1
amounts of urine
Vital Signs
Temp Pulse Resp BP Pulse Ox
97.7 F 74 16 150/70 97
08/10/25 07:15 08/10/25 08:52 08/10/25 08:52 08/10/25 07:15 08/10/25 08:52
Lab Results
08/10/25 07:23
Calcium 8.3 mg/dl (8.4-10.2) L 08/09/25 05:57
Total Bilirubin 0.7 mg/dl (0.2-1.3) 08/09/25 05:57
AST 52 U/L (14-36) H 08/09/25 05:57
ALT 66 U/L (0-35) H 08/09/25 05:57
Alkaline Phosphatase 126 U/L (38-126) 08/09/25 05:57
Total Protein 6.5 g/dl (6.3-8.2) 08/09/25 05:57
Albumin 3.8 g/dl (3.5-5.0) 08/09/25 05:57
Physical Exam
-
NAD
ABD soft, expected incisional tenderness, ND
Incisions with intact glue, no erythema or ecchymosis
[2025-08-10 09:17] LABS: ALT (SGPT) 86 U/L (0-35); AST (SGOT) 74 U/L (14-36); Albumin 3.8 g/dl (3.5-5.0); Alkaline Phosphatase 132 U/L (38-126); Blood Urea Nitrogen 12 mg/dl (7-17); Calcium 7.9 mg/dl (8.4-10.2); Carbon Dioxide 30 mmol/L (22-30); Chloride 96 mmol/L (98-107); Estimated Creatinine Clearance 65 ml/min; Glucose 108 mg/dl (70-99); Potassium 3.4 mmol/L (3.5-5.1); Sodium 134 mmol/L (135-145); Total Protein 6.7 g/dl (6.3-8.2); eGFR 57.66
[2025-08-10 11:25] VITALS: BP 120/64
[2025-08-10 12:51] LABS: Glucose - Point of Care 152 mg/dl (70-99)
--- NOTE | 2025-08-10 13:37 | CM ---
Spoke with patient she said that her sister Sally will drive her home.
Offered VN she requested [facility] Liaison notified PCP DR Altman.
Her Jemal is here with her in room
PLAN Home with [facility]
--- NOTE | 2025-08-10 14:11 | VNURNOTE ---
Home Health Liaison met with patient and family at bedside to discuss [facility] nurse/therapy, visits, schedule and homebound status. Patient is agreeable and understands that visits at home will be 2-3 x per week to assess and teach medical
management. Patient is aware that [facility] will contact them for start of care within a few days after discharge from . Provided contact number for [facility].
[facility] referral completed in [facility].
[2025-08-10] MEDS: NOVOLOG FLEXPEN-LOW RESISTANCE 1 UNITS SC (14:32)
--- NOTE | 2025-08-10 14:52 | W.PN.CARDCBS ---
Today's Communication / Plan
-
Restart Eliquis 48 hours postop
Anticipate discharge in 24 hours
Impression / Plan
-
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
Assessment:
Presentation with R flank pain, nausea
Acute cholecystitis
Typical atrial flutter status post cardioversion 07/09/2025
Paroxysmal atrial fibrillation status post Shameka pulse PVI 01/08/25
Chronic anticoagulation with Eliquis
Chronic heart failure with preserved EF
Coronary artery mild to moderate calcifications noted on PET/CT scan 11/2024
Hypertension
Hyperlipidemia with history of statin intolerance
Aortic sclerosis
MINOR on CPAP
Morbid obesity
Prediabetes
Pneumatosis coli
Thoracic aortic aneurysm
Echo 09/29/2024: EF 74%, trace MR, PAP 36 mmHg
PET/CT stress test 11/2024: Small fixed inferior defect without evidence of ischemia, EF greater than 65%, AAA measuring upto 4.5cm
Plan:
Overall doing well status postcholecystectomy postop day 1
Will restart Eliquis tomorrow night or Sunday morning.
She remains in sinus rhythms, so stroke risk remains low.
Anticipate discharge in 24 hours.
Progress Note - Registry Np
Subjective
Date of Service: August 10, 2025:
79-year-old woman admitted with cholecystitis. PFA in January 2025, recurrence of atrial flutter in June 2025, status post cardioversion on July 2025. Underwent cholecystectomy yesterday.
PMH:PAF/A-flutter status post PFA January 2025, coronary artery calcification, hypertension, hyperlipidemia, statin intolerance, sleep apnea, obesity, aortic sclerosis, glucose intolerance 4.5 cm thoracic aortic aneurysm, HFpEF, pneumatosis cystoid
Intestinalis, endometrial cancer status post WALTER
Medications: Carvedilol 25 twice daily, furosemide 40 twice daily, pantoprazole, Gemtesa, enoxaparin 40 every hour,
She offers no complaints overall feeling well
121/64, pulse 71, respiratory rate 16, afebrile, 139.4 kg, obese, head neck exam unremarkable, lungs are clear, regular rate and rhythm, distant heart tones, obese, lower extremity edema
ECG: Sinus rhythm, top normal QT
Telemetry: Sinus rhythm
White count 11.1, hemoglobin 11.6, BUN and creatinine 12 and 1.0, potassium 3.4, AST 74, ALT 86, proBNP was 279, in September was 662
Objective
Labs:
08/10/25 07:23
08/10/25 07:23
Labs
Hgb 11.6 g/dL (12.0-16.0) L 08/10/25 07:23
Hct 35.3 % (37.0-47.0) L 08/10/25 07:23
Plt Count 227 10^3/uL (130-400) 08/10/25 07:23
Sodium 134 mmol/L (135-145) L 08/10/25 07:23
Potassium 3.4 mmol/L (3.5-5.1) L 08/10/25 07:23
BUN 12 mg/dl (7-17) 08/10/25 07:23
Creatinine 1.0 mg/dL (0.6-1.0) 08/10/25 07:23
Glucose 108 mg/dl (70-99) H 08/10/25 07:23
Vital Signs and I&O:
Vital Signs
Temp Pulse Resp BP Pulse Ox
36.5 C 71 16 120/64 97
08/10/25:08/10/25 11:08/10/25 11:08/10/25 11:08/10/25 11:
Vital Signs
Temp Pulse Resp BP Pulse Ox
36.5 C 71 16 120/64 97
08/10/25:08/10/25 11:08/10/25 11:08/10/25 11:25 11:25
Intake & Output
08/08/25 08/09/25 08/10/25 08/11/25
07:59 06:59 07:59 07:59
Intake Total 100 / 100 3540 / 3540 600 / 600
Output Total 650 / 650
Balance -550 / -550 3540 / 3540 600 / 600
Physical Exam
Physical Exam
See above
[2025-08-10 15:00] VITALS: BP 118/57
[2025-08-10] MEDS: ULTRAM 25 MG PO (15:28)
--- NOTE | 2025-08-11 16:58 | W.DCSUMMARY ---
Discharge Summary
Discharge Data
Date of Admission: 08/08/25
Date of Discharge: 08/11/25
Total time spent discharging patient (in min): 55
-
Pending Results: No
Hospital Course
Rachell Yan is a 79 year old female with a past medical history of atrial fibrillation and flutter, recent cardioversion 07/09/2025, heart failure with preserved ejection fraction, and morbid obesity with obstructive sleep apnea who presented to the
emergency department on the late evening of 08/07/2025 complaining of abdominal pain.
HISTORY OF PRESENT ILLNESS
The patient presented to the emergency department with a sudden onset of mild right flank and abdominal pain the morning of arrival. The patient endorsed worsening of pain shortly after dinner that night when she also vomited a large amount of
undigested food. She also endorsed having several loose bowel movements that day. She denied any fevers or chills.
ED COURSE
In the emergency department, white blood cell count was 12.3 K with no other abnormalities on CBC. Complete metabolic panel inclusive of LFTs did not show any clinically significant abnormalities. Lipase was also within normal limits. An
ultrasound of the right upper quadrant showed gallbladder distention with sludge and likely gallstones. Gallbladder thickness measured up to 5 mm in thickness. Findings were critical and could have potentially represented an early acute
cholecystitis. She presented to the hospital for consultation with the surgical service.
HOSPITAL COURSE
The patient was initially started on empiric Zosyn. CT abdomen and pelvis testing exhibited pericholecystic edema and some fat stranding. Additionally, LFTs started to present with mild transaminitis and uptrending (but normal) bilirubin. Upon
surgical consultation, it was decided to undergo lap cholecystectomy pending cardiac risk stratification. After clearance by cardiology, the patient underwent a lap cholecystectomy with intraoperative cholangiogram. The patient tolerated the
procedure well. Antibiotics were discontinued. Analgesics were provided on an as needed basis. She was discharged on a short course of Ultram. Patient was tolerating a low-fat diet by the day of discharge. Labs showed a mild transaminitis which
was to be expected after procedure. The patient was instructed to hold Eliquis for 48 hours in the postop period.
DISCHARGE INSTRUCTIONS
Follow up with your primary care provider in less than one week.
Follow a low fat, low salt diet until otherwise instructed.
Complete Blood Count and Complete Metabolic Panel as ordered by your primary care provider.
Take pain medication only as directed. Follow your bowel regimen as instructed during discharge while you are taking opioid pain medications.
Resume Eliquis on 08/11/2025.
Follow up with the general surgeon in the next 2-3 weeks
Glue will flake off on its own over the next 1-2 weeks. Avoid picking or scrubbing. Do not soak in tubs or pools for 1-2 weeks.
Do not lift more than 20 lbs over the next 2-3 weeks.
Discharge Plan
-
Patient Disposition: Home with Home Care
Discharge Diagnosis/Procedures: *Acute calculous cholecystitis
History of Atrial Fibrillation/Flutter
History of Chronic Heart Failure with Preserved Ejection Fraction
History of Type 2 Diabetes Mellitus
History of Morbid Obesity
History of Asthma
History of Eczema
History of Fibromyalgia
Condition: Fair
Diet: Low Fat, Low Sodium and Diabetic, Carb Controlled
Activity: No strenuous activity
Additional Activity: Do not lift over 20lbs for the next 2-3 weeks.
Bathing Restrictions: OK to Shower
Blood Work: Complete Blood Count and Complete Metabolic Panel in 1 week with Primary Care Provider.
Wound Care: Glue will flake off on its own over the next 1-2 weeks. Avoid picking or scrubbing. Do not soak in tubs or pools for 1-2 weeks.
Specialty Instructions: Weigh Daily- Call MD for wt gain/loss 3 lbs overnight/5 lbs in 1 week
Activity Restrictions/Additional Instructions:
Call your surgeon if you develop worsening pain, nausea with vomiting or a fever >100.5
Referrals:
Devante David MD [Active, Surgical] - in two to four weeks
UNKNOWN - PT DOES,NOT KNOW [Family Provider, Family Practice] - in less than 1 week
Additional Discharge Medication Instructions: Ok to resume your eliquis on 08/11 at the usual dose and time
Prescriptions:
New
tramadol 50 mg tablet
25 mg PO Q6H PRN (Reason: pain) Qty: 10 0RF
Rx Instructions:
use stool softeners while taking tramadol for pain
oxycodone 5 mg tablet
5 mg PO Q4HPRN PRN (Reason: breakthrough/severe pain) Qty: 10 0RF
Continued
fluticasone propionate 1 SPRAY spray,suspension
2 spray intranasal DAILY
alpha lipoic acid 100 MG capsule
200 mg PO MOTH
cyanocobalamin (vitamin B-12) [Vitamin B-12] 500 mcg Tablet
500 mcg PO DAILY
ascorbic acid (vitamin C) [Vitamin C] 500 mg Tablet
500 mg PO MOWE
omeprazole 20 mg Capsule,Delayed Release(Dr/Ec)
20 mg PO DAILY
pyridoxine (vitamin B6) [Vitamin B-6] 100 mg Tablet
100 mg PO TUTH
cholecalciferol (vitamin D3) [Vitamin D3] 10 mcg (400 unit) Tablet
10 mcg PO DAILY
calcium carbonate-vitamin D3 [Calcium 500 + D] 500 mg-5 mcg (200 unit) Tablet
1 tab PO DAILY
cholecalciferol (vitamin D3) [Vitamin D3] 25 mcg (1,000 unit) Tablet
25 mcg PO DAILY
Gemtesa 75 mg Tablet
75 mg PO DAILY
therapeutic multivitamin Tablet
1 tab PO DAILY
coQ10 (ubiquinol) 100 mg Capsule
100 mg PO DAILY
Hair, Skin and Nails (biotin) 10,000 mcg Tablet,Chewable
3,000 mcg PO DAILY
Reclast
1 dose IV [id number]
guaifenesin [Mucinex] 600 mg tablet extended release 12hr
600 mg PO [id number] PRN (Reason: cough)
budesonide 0.5 mg/2 mL Suspension For Nebulization
0.5 mg INHALATION R DAILY
famotidine 40 mg tablet
40 mg PO HSPRN PRN (Reason: gerd)
nystatin 100,000 unit/mL Suspension
5 ml PO TID
lidocaine [Lidocaine Pain Relief] 4 % Adhesive Patch,Medicated
1 patch TOPICAL DAILY
cod liver oil Capsule
1 cap PO WE
hydrocortisone 1 % Cream
1 applic TOPICAL PRN PRN (Reason: Rash, itching)
nystatin-triamcinolone 100,000-0.1 unit/g-% Cream
1 applic TOPICAL DAILY PRN (Reason: rash)
albuterol sulfate 90 mcg/actuation Hfa Aerosol Inhaler
2 puff INHALATION PRN PRN (Reason: SOB)
ketoconazole 2 % Cream
1 applic TOPICAL PRN PRN (Reason: Rash)
mometasone 0.1 % Cream
1 applic TOPICAL DAILY PRN (Reason: to ears)
omega-3 acid ethyl esters [Lovaza] 1 gram Capsule
1 cap PO DAILY
psyllium
625 mg PO DAILY
furosemide 40 mg tablet
40 mg PO BID AT 0800,1600
fluoride (sodium) 1.1 % paste
1 applic dental BID
colesevelam [WelChol] 625 mg Tablet
625 mg PO BID
carvedilol 12.5 mg tablet
25 mg PO DAILY
Held
Eliquis 5 mg Tablet
5 mg PO BID
Hold Instructions: Resume on 08/11/25.
Discharge Orders:
Discharge Patient (As Directed); Ordered 08/10/25
Ordered By: Marquis Gomez
Discharge Date and Time
Discharge Date/Time: 08/10/25 17:02
Print Language: ROMANSH
== END 2025-08-10 17:02 | disposition home health service (06) | DRG 418 ==
LOC: 2 SOUTH 04:38
PROVIDERS: Radiology Neuroradiology; Registered Nurse; ADMITTING PHYSICIAN Hospitalist; ATTENDING PHYSICIAN Internal Medicine; CONSULT PHYSICIAN Internal Medicine Cardiovascular Disease; CONSULT PHYSICIAN Surgery; EMERGENCY PHYSICIAN Emergency Medicine
PROC: 0FT44ZZ Resection of Gallbladder, Percutaneous Endoscopic Approach (ICD-10-PCS; 2025-08-09)
PROC: BF131ZZ Fluoroscopy of Gallbladder and Bile Ducts using Low Osmolar Contrast (ICD-10-PCS; 2025-08-09)
DX: K80.00 Calculus of gallbladder with acute cholecystitis without obstruction (principal); I48.3 Typical atrial flutter; I50.32 Chronic diastolic (congestive) heart failure; Z68.43 Body mass index [BMI] 50.0-59.9, adult; J44.89 Other specified chronic obstructive pulmonary disease; I48.0 Paroxysmal atrial fibrillation; I11.0 Hypertensive heart disease with heart failure; K21.9 Gastro-esophageal reflux disease without esophagitis; E78.00 Pure hypercholesterolemia, unspecified; G47.33 Obstructive sleep apnea (adult) (pediatric); L30.9 Dermatitis, unspecified; M79.7 Fibromyalgia; G43.909 Migraine, unspecified, not intractable, without status migrainosus; K44.9 Diaphragmatic hernia without obstruction or gangrene; E11.36 Type 2 diabetes mellitus with diabetic cataract; F41.9 Anxiety disorder, unspecified; I70.0 Atherosclerosis of aorta; K66.0 Peritoneal adhesions (postprocedural) (postinfection); R32 Unspecified urinary incontinence; K76.0 Fatty (change of) liver, not elsewhere classified; I35.0 Nonrheumatic aortic (valve) stenosis; I25.10 Atherosclerotic heart disease of native coronary artery without angina pectoris; K63.89 Other specified diseases of intestine; I71.40 Abdominal aortic aneurysm, without rupture, unspecified; R74.01 Elevation of levels of liver transaminase levels; E66.01 Morbid (severe) obesity due to excess calories; Z79.01 Long term (current) use of anticoagulants; Z90.710 Acquired absence of both cervix and uterus; Z85.89 Personal history of malignant neoplasm of other organs and systems; Z80.0 Family history of malignant neoplasm of digestive organs; Z80.51 Family history of malignant neoplasm of kidney; Z80.7 Family history of other malignant neoplasms of lymphoid, hematopoietic and related tissues; Z88.6 Allergy status to analgesic agent; Z88.1 Allergy status to other antibiotic agents; Z91.040 Latex allergy status; Z88.2 Allergy status to sulfonamides; Z88.8 Allergy status to other drugs, medicaments and biological substances; Z91.048 Other nonmedicinal substance allergy status; Z79.899 Other long term (current) drug therapy; Z79.51 Long term (current) use of inhaled steroids
CPT/HCPCS: 74176; 74300; 76000; 76705; 80048; 80053; 81003; 81015; 82962; 83036; 83690; 83880; 85025; 85027; 86850; 86900; 86901; 88304; 93005; 94640; 96361; 96365; 96375; 96376; 99285; A4300; J1610

== ENCOUNTER 2025-08-12 01:48 | Observation (INO) | payer MEDICARE, BC, SELFPAY ==
[2025-08-11 19:34] VITALS: BP 158/75
[2025-08-11 19:49] LABS: Hematocrit 36.3 % (37.0-47.0); Hemoglobin 12.0 g/dL (12.0-16.0); Mean Corp Hgb Conc. 33.1 g/dL (33.0-37.0); Mean Corpuscular Volume 84.8 fL (81.0-99.0); Nucleated Red Blood Cells % 0 %; Platelet Count 224 10^3/uL (130-400); Red Cell Dist. Width 14.0 % (11.5-14.5)
[2025-08-11 20:10] LABS: ALT (SGPT) 64 U/L (0-35); AST (SGOT) 48 U/L (14-36); Albumin 4.0 g/dl (3.5-5.0); Alkaline Phosphatase 131 U/L (38-126); Blood Urea Nitrogen 13 mg/dl (7-17); Calcium 8.5 mg/dl (8.4-10.2); Carbon Dioxide 34 mmol/L (22-30); Chloride 95 mmol/L (98-107); Glucose 113 mg/dl (70-99); Lipase 128 U/L (23-300); Potassium 3.3 mmol/L (3.5-5.1); Sodium 131 mmol/L (135-145); Total Protein 7.0 g/dl (6.3-8.2); eGFR > 60.00
--- NOTE | 2025-08-11 21:52 | ED.GENMED ---
History of Present Illness
<Kennedy Davey PA-C - Last Filed: 08/11/25 23:42>
General
Chief Complaint: Post Operative Problem(s)
Source: patient and physician
Time Seen by Provider: 08/11/25 21:06
History of Present Illness
History of Present Illness:
79-year-old female postop day 2 from laparoscopic cholecystectomy who presents to the emergency department at the request of general surgery for evaluation of increased abdominal pain in the right upper quadrant since being discharged from the
hospital yesterday. Patient took 2 doses of her tramadol as well as Tylenol but without any relief of symptoms. She also states she have pain in the upper part of her shoulder area. She also endorses some nausea but no active vomiting. She does
report having flatus but yet to have a bowel movement since being discharged home. Patient is without any fevers, chest pain, shortness of breath, cough, hemoptysis or any other concerns.
Past History
<Kennedy Davey PA-C - Last Filed: 08/11/25 23:42>
Past History
ED Past Medical History: Arrthythmia (A-fib on Eliquis), COPD, HTN, NIDDM, Psychiatric (Anxiety) and Other (endometrial cancer, urinary incontinence)
ED Past Surgical History: Gynecological and Other (hysterectomy)
Social History
Tobacco: Non-smoker
Alcohol: Occasional
Drug: None
Personal:
Living: with family
Employment: Employed
Review of Systems
<Kennedy Davey PA-C - Last Filed: 08/11/25 23:42>
Review of Systems
All Other Systems: ROS reviewed and negative except as documented in HPI and ROS
Phy Exam
<Kennedy Davey PA-C - Last Filed: 08/11/25 23:42>
Physical Exam
Physical Exam:
GENERAL: Alert , appears uncomfortable, overweight
EYE: clear conjunctiva b/l
HEAD: NCAT
ENT: o/p clr, mmm.
CARDIAC: Regular rate and rhythm .
LUNGS: Clear breath sounds bilaterally, no acute respiratory distress, no wheezes/rales/rhonchi
ABDOMEN: Soft, distended with tenderness to the right upper quadrant, laparoscopic incisions are without surrounding erythema or dehiscence
NEUROLOGICAL: Alert and oriented
SKIN: Warm and dry, skin intact.
MUSCULOSKELETAL: No edema, well perfused.
PSYCH: Normal and appropriate interaction.
Scores
<Kennedy Davey PA-C - Last Filed: 08/11/25 23:42>
Heart Failure Risk
Heart Failure Risk Score: Not Applicable
Heart Score for Chest Pain Patients
STEMI patient?: Not applicable
Withdrawal Assessment of Alcohol
Withdrawal Assessment Completed?: Not applicable
Course
<Kennedy Davey PA-C - Last Filed: 08/11/25 23:42>
Orders/Labs/Results
Orders:
Orders
08/11/25 19:43
Complete Blood Count/With Diff Urgent
Comprehensive Metabolic Panel Urgent
Lipase Urgent
08/11/25 21:08
CT Abd/pelvis W Iv Cont Urgent
Comment:
Reason For Exam: recent cholecystectomy, increasing pain
08/11/25 21:45
0.9% Sodium Chloride 1000 ml [Nss] 1,000 ml IV BOLUS
Morphine Sulfate 4 mg IV NOW STA
Ondansetron Injectable [Zofran] 4 mg IV NOW STA
Abnormal Lab Results
08/11/25
19:43
Hct 36.3 L %
(37.0-47.0)
Absolute Neuts (auto) 8.6 H 10^3/uL
(1.4-6.5)
Absolute Lymphs (auto) 1.0 L 10^3/uL
(1.2-3.4)
Absolute Monos (auto) 1.1 H 10^3/uL
(0.1-0.6)
Neutrophils % 79.9 H %
(42.2-75.2)
Lymphocytes % 8.8 L %
(20.5-51.1)
Monocytes % 10.2 H %
(1.7-9.3)
Sodium 131 L mmol/L
(135-145)
Potassium 3.3 L mmol/L
(3.5-5.1)
Chloride 95 L mmol/L
(98-107)
Carbon Dioxide 34 H mmol/L
(22-30)
Glucose 113 H mg/dl
(70-99)
AST 48 H U/L
(14-36)
ALT 64 H U/L
(0-35)
Alkaline Phosphatase 131 H U/L
(38-126)
08/11/25 19:43
08/11/25 19:43
Vital Signs
Initial and Last Documented VS:
Initial Vital Signs
Temp Pulse Resp BP Pulse Ox
98.9 F 65 19 158/75 94
08/11/25 19:34 08/11/25 19:34 08/11/25 19:34 08/11/25 19:34 08/11/25 19:34
Last Documented Vital Signs
Temp Pulse Resp BP Pulse Ox
98.9 F 65 20 158/75 94
08/11/25 19:34 08/11/25 19:34 08/11/25 22:18 08/11/25 19:34 08/11/25 21:54
Alylt;Kiko Pillai, DO - Last Filed: 08/11/25 22:14>
Orders/Labs/Results
Orders:
Orders
08/11/25 19:43
Complete Blood Count/With Diff Urgent
Comprehensive Metabolic Panel Urgent
Lipase Urgent
08/11/25 21:08
CT Abd/pelvis W Iv Cont Urgent
Comment:
Reason For Exam: recent cholecystectomy, increasing pain
08/11/25 21:45
0.9% Sodium Chloride 1000 ml [Nss] 1,000 ml IV BOLUS
Morphine Sulfate 4 mg IV NOW STA
Ondansetron Injectable [Zofran] 4 mg IV NOW STA
Abnormal Lab Results
08/11/25
19:43
Hct 36.3 L %
(37.0-47.0)
Absolute Neuts (auto) 8.6 H 10^3/uL
(1.4-6.5)
Absolute Lymphs (auto) 1.0 L 10^3/uL
(1.2-3.4)
Absolute Monos (auto) 1.1 H 10^3/uL
(0.1-0.6)
Neutrophils % 79.9 H %
(42.2-75.2)
Lymphocytes % 8.8 L %
(20.5-51.1)
Monocytes % 10.2 H %
(1.7-9.3)
Sodium 131 L mmol/L
(135-145)
Potassium 3.3 L mmol/L
(3.5-5.1)
Chloride 95 L mmol/L
(98-107)
Carbon Dioxide 34 H mmol/L
(22-30)
Glucose 113 H mg/dl
(70-99)
AST 48 H U/L
(14-36)
ALT 64 H U/L
(0-35)
Alkaline Phosphatase 131 H U/L
(38-126)
08/11/25 19:43
08/11/25 19:43
Vital Signs
Initial and Last Documented VS:
Initial Vital Signs
Temp Pulse Resp BP Pulse Ox
98.9 F 65 19 158/75 94
08/11/25 19:34 08/11/25 19:34 08/11/25 19:34 08/11/25 19:34 08/11/25 19:34
Last Documented Vital Signs
Temp Pulse Resp BP Pulse Ox
98.9 F 65 20 158/75 94
08/11/25 19:34 08/11/25 19:34 08/11/25 22:18 08/11/25 19:34 08/11/25 21:54
<Kennedy Davey PA-C - Last Filed: 08/11/25 23:42>
MDM/Problems Addressed
Differential Diagnosis Includes:
Post op pain
Seroma/Infection/Abscess thought to be less likely on POD day 2
Obstruction
PE considered given shoulder pain but given only 2 days post op again thought to be less likely
DANDRE
Dehydration
Choledocholithiasis
MDM/Problems Addressed:
79-year-old female presenting to the ER at the request of general surgery for evaluation of increasing right upper quadrant abdominal pain and nausea after being discharged from the hospital yesterday on postop day 1, now having increased pain.
Patient appears uncomfortable at time of my exam but in no acute distress, she is hemodynamically stable. Labs ordered from triage do show a mild transaminitis and very mild hyponatremia and hypokalemia. Will treat pain with morphine and nausea
with Zofran. CT scan ordered. General surgery was notified of these findings as they sent the patient to the ER with concerns for possible choledocholithiasis and are in agreement with plan for CT imaging. Disposition pending.
<Kennedy Davey PA-C - Last Filed: 08/11/25 23:42>
*Radiology
Radiology exam reviewed: radiology read reviewed
*Pulse Oximetry
SaO2: 94
Oxygen Mode of Delivery: Room air
Patient hypoxic: no
*Critical Care Note
Total Time (30-74mins, 75-104mins- exclusive of procedures): Not Applicable
Data Reviewed
Review of Other/Old Records Reveals: Labs, Radiology Studies and Discharge Summary
<Kennedy Davey PA-C - Last Filed: 08/11/25 23:42>
Patient Management
Discussion with other providers: Hospitalist and Plug [employer]
Escalation/DeEscalation of care consider admission/obs:
Patient CT findings as follows:
IMPRESSION:
1. Small amount of nonloculated fluid (2.8 cm) in the right upper quadrant of the abdomen inferior to the cholecystectomy surgical bed.
2. Mild intrahepatic and extrahepatic biliary dilatation.
3. Moderate diffuse hepatic steatosis and mild hepatomegaly.
4. Large 10.4 cm fat-containing right lower quadrant anterior abdominal wall hernia which now contains ACUTE PANNICULITIS, a small amount of fluid, and a small amount of air (possibly postsurgical from trocar insertion).
5. Mild chronic bilateral renal disease.
6. Small hiatal hernia.
7. 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
8. Grade 2 anterolisthesis of L4 on L5.
9. Mild cardiomegaly.
No acute emergent pathology seen but I did discuss with the patient the abdominal wall hernias as noted above. Patient is aware of these hernias from previous. Given her pain as well as being sent to the ER we will plan to admit to the surgical
service for them to evaluate the patient in the morning. House nurse practitioner team notified who will write orders for the surgical team.
ED Attending Note
<Kennedy Davey PA-C - Last Filed: 08/11/25 23:42>
-
Portions of this chart may have been created with voice recognition software.� Occasional wrong word or��sound alike� substitutions may have occurred due to the inherent limitations of voice recognition software.
<Kiko Pillai DO - Last Filed: 08/11/25 22:14>
ED Attending Note
Patient seen and examined by attending physician: Yes
I performed the substantive portion of visit, reviewed & personally made and approve the management plan that is documented in note by myself or DONNA.: Yes
ED Attending Note:
I evaluated the patient at bedside. The patient did not receive IV pain medication yet and does appear somewhat uncomfortable. She does have a obese abdomen. Lab work is reassuring but pain persist. CT imaging pending.
Discharge Plan
Departure
Patient Disposition: Admit
Date of Disposition: 08/11/25
Time of Disposition: 23:22
Presentation/result/management discussed w/ accepting /DO: Dr. Soria
Discharge Problem:
Post-operative pain, Abdominal wall hernia
Prescriptions:
No Action
fluticasone propionate 1 SPRAY spray,suspension
2 spray intranasal DAILY
alpha lipoic acid 100 MG capsule
200 mg PO MOTH
cyanocobalamin (vitamin B-12) [Vitamin B-12] 500 mcg Tablet
500 mcg PO DAILY
ascorbic acid (vitamin C) [Vitamin C] 500 mg Tablet
500 mg PO MOWE
omeprazole 20 mg Capsule,Delayed Release(Dr/Ec)
20 mg PO DAILY
pyridoxine (vitamin B6) [Vitamin B-6] 100 mg Tablet
100 mg PO TUTH
cholecalciferol (vitamin D3) [Vitamin D3] 10 mcg (400 unit) Tablet
10 mcg PO DAILY
calcium carbonate-vitamin D3 [Calcium 500 + D] 500 mg-5 mcg (200 unit) Tablet
1 tab PO DAILY
cholecalciferol (vitamin D3) [Vitamin D3] 25 mcg (1,000 unit) Tablet
25 mcg PO DAILY
Gemtesa 75 mg Tablet
75 mg PO DAILY
therapeutic multivitamin Tablet
1 tab PO DAILY
coQ10 (ubiquinol) 100 mg Capsule
100 mg PO DAILY
Hair, Skin and Nails (biotin) 10,000 mcg Tablet,Chewable
3,000 mcg PO DAILY
Reclast
1 dose IV [id number]
guaifenesin [Mucinex] 600 mg tablet extended release 12hr
600 mg PO [id number] PRN (Reason: cough)
Eliquis 5 mg Tablet
5 mg PO BID
budesonide 0.5 mg/2 mL Suspension For Nebulization
0.5 mg INHALATION R DAILY
famotidine 40 mg tablet
40 mg PO HSPRN PRN (Reason: gerd)
nystatin 100,000 unit/mL Suspension
5 ml PO TID
lidocaine [Lidocaine Pain Relief] 4 % Adhesive Patch,Medicated
1 patch TOPICAL DAILY
cod liver oil Capsule
1 cap PO WE
hydrocortisone 1 % Cream
1 applic TOPICAL PRN PRN (Reason: Rash, itching)
nystatin-triamcinolone 100,000-0.1 unit/g-% Cream
1 applic TOPICAL DAILY PRN (Reason: rash)
albuterol sulfate 90 mcg/actuation Hfa Aerosol Inhaler
2 puff INHALATION PRN PRN (Reason: SOB)
ketoconazole 2 % Cream
1 applic TOPICAL PRN PRN (Reason: Rash)
mometasone 0.1 % Cream
1 applic TOPICAL DAILY PRN (Reason: to ears)
omega-3 acid ethyl esters [Lovaza] 1 gram Capsule
1 cap PO DAILY
psyllium
625 mg PO DAILY
furosemide 40 mg tablet
40 mg PO BID AT 0800,1600
fluoride (sodium) 1.1 % paste
1 applic dental BID
colesevelam [WelChol] 625 mg Tablet
625 mg PO BID
carvedilol 12.5 mg tablet
25 mg PO DAILY
tramadol 50 mg tablet
25 mg PO Q6H PRN (Reason: pain) Qty: 10 0RF
Rx Instructions:
use stool softeners while taking tramadol for pain
oxycodone 5 mg tablet
5 mg PO Q4HPRN PRN (Reason: breakthrough/severe pain) Qty: 10 0RF
Referrals:
Crystal Saunders MD [Family Provider, Internal Medicine]
Interventions
Interventions:
*Risk Screen - Suicide Last Done: 08/11/25 19:35
*General Assessment Last Done: 08/11/25 19:35
*Neglect/Abuse Screening Last Done: 08/11/25 19:35
*ED- Fall Risk Assessment Last Done: 08/11/25 22:18
*ED COVID-19 Vaccine History Last Done: 08/11/25 19:35
*ED Influenza Vaccine History Last Done: 08/11/25 19:35
ED-Skin Assessment Last Done: 08/11/25 22:18
Discharge Date and Time
Print Language: [place] K[place]
[2025-08-11] MEDS: NSS 1000 IV (22:17)
[2025-08-11] MEDS: ZOFRAN 4 MG IV (22:17)
[2025-08-11] MEDS: MORPHINE SULFATE 4 MG IV (22:17)
[2025-08-11 23:49] VITALS: BP 126/80
[2025-08-11 23:52] VITALS: BP 126/80
[2025-08-12] VITALS (7 sets, daily range): BP systolic 106–129; BP diastolic 62–88; BMI 54.4
--- NOTE | 2025-08-12 01:45 | HPS.HSE ---
Addendum entered and electronically signed by Devante David MD 08/12/25 07:55:
Patient is a 79 yo F with a PMH of morbid obesity, depression/anxiety, GERD, HTN, HLD, A-fib (on Eliquis), COPD, NIDDM, and recently s/p laparoscopic cholecystectomy with IOC on 08/10/2025. She presents with abdominal discomfort. Pain control at
home with Tylenol and 25 mg of tramadol. She was unable to fill a prescription for oxycodone sent in yesterday and presented to the ER for further workup and management. She reports mild nausea, no episodes of vomiting. She reports passing
flatus, but no stool postoperatively. She has been taking Colace and fiber at home. Currently her biggest complaint is of back pain and LEFT sided discomfort. No fevers. No jaundice, pale stools, or tea colored urine.
Gen: NAD
Abd: soft, mild tenderness at incisions, obese, non-peritoneal, incisions c/d/i - no erythema, ecchymosis or drainage
Labs and CT scan imaging reviewed.
Patient is a 79 yo F POD#2 s/p laparoscopic cholecystectomy
Currently clinically stable. She is having some abdominal discomfort, however, had no oral pain medication overnight and received a low-dose of tramadol as an outpatient which was unlikely to be effective for her. She does have some chronic pain
issues and uses a lidocaine patch at baseline. Labs are reassuring with a normal WBC, normal bilirubin, downtrending LFTs and ALP, normal lipase. CT scan demonstrates a small amount of fluid within the gallbladder fossa, however no concerns for an
abscess. Previously known hernias without significant tenderness or skin changes. No indication or plan for repeat surgical or procedural intervention. No need for further workup.
Plan to advance diet to a low-fat diet. Pain control with Tylenol, Toradol, Oxycodone. Continue with lidocaine patch. Bowel regimen with MiraLAX and milk of magnesia. All questions answered. Will monitor throughout the day today, dispo pending.
-- Low fat diet
-- Pain control: Tylenol, Toradol, Oxycodone
-- Abx: None needed
-- Repeat labs pending
-- Home meds
-- DVT: Eliquis
-- GI: Home PPI
-- Bowel regimen
-- OOB/ambulate
-- Dispo pending
Original Note:
Family Physician
-
Family Physician: Crystal Saunders MD
Chief Complaint
-
Abdominal pain/post op
History of Present Illness
Patient is a 79-year-old female with past medical history significant for Arrthythmia (A-fib on Eliquis), COPD, HTN, NIDDM, Psychiatric (Anxiety) and Other (endometrial cancer, urinary incontinence), postop day 2 from laparoscopic cholecystectomy
who presents to the emergency department at the request of general surgery for evaluation of increased abdominal pain in the right upper quadrant since being discharged from the hospital yesterday. Patient took 2 doses of her tramadol as well as
Tylenol but without any relief of symptoms. She also states she have pain in the upper part of her shoulder area. She also endorses some nausea but no active vomiting. She does report having flatus but yet to have a bowel movement since being
discharged home. Patient is without any fevers, chest pain, shortness of breath, cough, hemoptysis or any other concerns.
In the emergency department: Labs show a mild transaminitis and very mild hyponatremia and hypokalemia.
CT abd/Pelvis w/IV contrast
IMPRESSION:
1. Small amount of nonloculated fluid (2.8 cm) in the right upper quadrant of the abdomen inferior to the cholecystectomy surgical bed.
2. Mild intrahepatic and extrahepatic biliary dilatation.
3. Moderate diffuse hepatic steatosis and mild hepatomegaly.
4. Large 10.4 cm fat-containing right lower quadrant anterior abdominal wall hernia which now contains ACUTE PANNICULITIS, a small amount of fluid, and a small amount of air (possibly postsurgical from trocar insertion).
5. Mild chronic bilateral renal disease.
6. Small hiatal hernia.
7. 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
8. Grade 2 anterolisthesis of L4 on L5.
9. Mild cardiomegaly.
Patient received 1L NSS bolus, Morphine Sulfate 4 mg IV x 1, Zofran 4 mg IV x 1
Emergency provider, Kennedy Davey PA-C spoke with on-call General surgery provider, Dr. Soria, who is accepting the patient to his service.
Plan: NPO, IV fluids, pain control, antiemetics.
Medical History
Past Medical History
Past Medical History: Reports Arrhythmia (Atrial fib/flutter), Asthma, CHF (HFpEF), Fibromyalgia, HTN, NIDDM (Type 2 diabetes) and Other (MINOR, Eczema, Migraines, Morbid Obesity)
Past Surgical History: Reports Other (DCCVx multiple, PVI ablation, WALTER, Cataracts, Temporal Artery Biopsy)
Additional Past Surgical History:
DCCV x Multiple, PVI ablation, WALTER, Cataracts, Temporal Artery Biopsy
Social History
Tobacco: Non-smoker
Alcohol: None
Drug: None
Family History
Family History: Other (Father: Colon cancer Mother: Lymphoma Sister: Renal Cancer)
Allergies / Home Medications
Allergies reflects when Allergies were last updated in [employer].
Home Medications with original date entered in [employer]
Allergy/Medication List:
Patient Allergies
Allergy/AdvReac Type Severity Reaction Status Date / Time
adhesive Allergy Skin Verified 08/11/25 19:35
Peeling
aspartame Allergy Severe Verified 08/11/25 19:35
headache
aspirin Allergy GI Verified 08/11/25 19:35
discomfort-
GERD
betamethasone dipropionate Allergy patient Verified 08/11/25 19:35
(From Lotrisone) denies
cefuroxime Allergy Unknown Verified 08/11/25 19:35
celecoxib Allergy Muscle Verified 08/11/25 19:35
Weakness
cinnamon Allergy Severe Verified 08/11/25 19:35
Mouth Sores
ciprofloxacin Allergy Unknown Verified 08/11/25 19:35
clotrimazole (From Lotrisone) Allergy Rash Verified 08/11/25 19:35
dexamethasone Allergy Vision Verified 08/11/25 19:35
Problems
doxycycline Allergy Unknown Verified 01/08/25 08:28
duloxetine (From Cymbalta) Allergy Nausea, Verified 01/08/25 08:28
Headache,
Leg
Cramps,
Back Pain
evolocumab (From Repatha Allergy Diarrhea Verified 01/08/25 08:28
SureClick)
fluconazole Allergy Unknown Verified 01/08/25 08:28
hydrocodone (From Vicodin) Allergy Unknown Verified 01/08/25 08:28
imipramine Allergy Unknown Verified 01/08/25 08:28
ketchup Allergy Vomiting Verified 01/08/25 08:28
latex Allergy Rash Verified 07/09/25 12:35
prednisone Allergy Severe Verified 01/08/25 08:28
anxiety
attack
rofecoxib (From Vioxx) Allergy Muscle Verified 01/08/25 08:28
Weakness
Tcdhbrc-FGD-HgO Reductase Allergy muscle Verified 01/08/25 08:28
Inhibitor (Gumffto-Fxj-Fnq weakness,
Reductase Inhibitor) GI issue
sulfamethoxazole (From Allergy SOB, Fever Verified 01/08/25 08:28
Bactrim)
trimethoprim (From Bactrim) Allergy SOB, Fever Verified 01/08/25 08:28
cefixime (From Suprax) AdvReac leg Verified 07/09/25 12:04
weakness
ANESTHESIA MEDICATIONS AdvReac sensitive Uncoded 01/08/25 08:28
to anesth,
Heaviness
of limbs
Home Medications
�Medication �Instructions �Recorded
alpha lipoic acid 100 mg capsule 200 mg PO MOTH Supplement 10/13/13
fluticasone propionate 50 2 spray intranasal DAILY Congestion 10/13/13
mcg/actuation nasal
spray,suspension
ascorbic acid (vitamin C) 500 mg 500 mg PO MOWE Supplement 12/31/22
tablet (Vitamin C)
calcium 500 mg (as 1 tab PO DAILY Supplement 12/31/22
carbonate)-vitamin D3 5 mcg (200
unit) tablet (Calcium 500 + D)
cholecalciferol (vitamin D3) 10 10 mcg PO DAILY Supplement 12/31/22
mcg (400 unit) tablet (Vitamin D3)
cholecalciferol (vitamin D3) 25 25 mcg PO DAILY Supplement 12/31/22
mcg (1,000 unit) tablet (Vitamin
D3)
cyanocobalamin (vitamin B-12) 500 500 mcg PO DAILY Supplement 12/31/22
mcg tablet (Vitamin B-12)
omeprazole 20 mg capsule,delayed 20 mg PO DAILY Gastrointestinal 12/31/22
release issue
pyridoxine (vitamin B6) 100 mg 100 mg PO TUTHSA Supplement 12/31/22
tablet (Vitamin B-6)
vibegron 75 mg tablet (Gemtesa) 75 mg PO DAILY Urinary issue 12/31/22
coQ10 (ubiquinol) 100 mg capsule 100 mg PO DAILY Supplement 01/01/23
therapeutic multivitamin 1 tab PO DAILY Supplement 01/01/23
Reclast 1 dose IV [id number] Bisphosphonate 01/10/24
Derivative
biotin 10,000 mcg chewable tablet 3,000 mcg PO DAILY Supplement 01/10/24
(Hair, Skin and Nails (biotin))
guaifenesin 600 mg tablet, 600 mg PO [id number] PRN cough 01/10/24
extended release 12 hr (Mucinex)
apixaban 5 mg tablet (Eliquis) 5 mg PO BID Blood Clot 08/11/24
Held on 08/10/25. Prevention/Tx
Instructions: Resume on
08/11/25.
budesonide 0.5 mg/2 mL suspension 0.5 mg inhalation R DAILY 09/24/24
for nebulization Lung/Breathing Issues
famotidine 40 mg tablet 40 mg PO HSPRN PRN gerd 09/24/24
albuterol sulfate 90 mcg/actuation 2 puff inhalation PRN PRN SOB 12/24/24
aerosol inhaler
cod liver oil 1 cap PO .3X PER WK Supplement 12/24/24
fluoride (sodium) 1.1 % dental 1 applic dental BID TEETH 12/24/24
paste
furosemide 40 mg tablet 40 mg PO BID AT 0800,1600 Fluid 12/24/24
Retention/Swelling
hydrocortisone 1 % topical cream 1 applic topical PRN PRN Rash, 12/24/24
itching
ketoconazole 2 % topical cream 1 applic topical PRN PRN Rash 12/24/24
lidocaine 4 % topical patch 1 patch topical DAILY Pain 12/24/24
(Lidocaine Pain Relief)
mometasone 0.1 % topical cream 1 applic topical DAILY PRN to ears 12/24/24
nystatin 100,000 unit/mL oral 5 ml PO TID ANTIFUNGAL 12/24/24
suspension
nystatin-triamcinolone 100,000 1 applic topical DAILY PRN rash 12/24/24
unit/g-0.1 % topical cream
psyllium 625 mg PO DAILY Constipation 12/24/24
colesevelam 625 mg tablet (WelChol) 625 mg PO BID High Cholesterol 07/09/25
carvedilol 12.5 mg tablet 25 mg PO BID Blood Pressure 08/08/25
oxycodone 5 mg tablet 5 mg PO Q4HPRN PRN 08/11/25
breakthrough/severe pain #10 tabs
Oscal 1 tab PO DAILY 08/12/25
omega-3 acid ethyl esters 1 gram 1 cap PO DAILY 08/12/25
capsule (Lovaza)
tramadol 25 mg tablet 25 mg PO Q6H PRN PAIN 08/12/25
Review of Systems
-
History Source: Patient
A 12 point ROS was completed and negative except as noted: Yes
Constitutional: Reports See HPI
Physical Exam
Vital Signs
Vital Signs
Temp Pulse Resp BP Pulse Ox
98.8 F 103 17 129/88 95
08/11/25 23:52 08/12/25 00:45 08/12/25 00:45 08/12/25 00:00 08/12/25 00:45
Physical Exam
General: Conversant, Pain (upper abdominal pain and right shoulder pain) and Morbidly Obese
HEENT: Moist mucous membranes and PERRLA
Respiratory: Clear, Non Labored Respirations and Decreased Breath Sounds
Cardiac: S1/S2 and Regular Rhythm
GI: Soft, Tender (right upper abdomen pain) and Other (laproscopic surgical wounds, obese)
Musculoskeletal: Edema, Left Lower Extremity (+2 b/l lower extremity edema) and Edema, Right Lower Extremity (+2 b/l lower extremity edema)
Skin: Other (Surgical incisions, abdomen)
Neuro: Awake, Alert and Oriented
Psych: Calm and Intact Judgment/Insight
Laboratory Results
-
08/11/25 19:43
08/11/25 19:43
Laboratory Results
Total Bilirubin 0.9 mg/dl (0.2-1.3) 08/11/25 19:43
AST 48 U/L (14-36) H 08/11/25 19:43
ALT 64 U/L (0-35) H 08/11/25 19:43
Alkaline Phosphatase 131 U/L (38-126) H 08/11/25 19:43
Lipase 128 U/L (23-300) 08/11/25 19:43
Data Reviewed
-
CT Scan: Report Reviewed by me
Lab Data: Labs Reviewed by me
Impression/Plan
-
IMPRESSION:
Patient is a 79-year-old female with past medical history significant for Arrhythmia (A-fib on Eliquis), COPD, HTN, NIDDM, Psychiatric (Anxiety) and Other (endometrial cancer, urinary incontinence), postop day 2 from laparoscopic cholecystectomy who
presents to the emergency department at the request of general surgery for evaluation of increased abdominal pain in the right upper quadrant since being discharged from the hospital yesterday.
PLAN:
Abdominal pain/post op day 2 laparoscopic cholecystectomy
- Admit to General Surgery, Dr. Soria, for further evaluation and treatment.
- RUQ pain, shoulder pain
- NPO, pain control, antiemetics, IV fluids
Atrial Fibrillation / Flutter
- s/p PVI ablation without further episodes of A-Fib.
- Recent episode of typical A=-Flutter s/p DCCV on 07/09.
- Stable / NSR at present.
- Last dose of Eliquis was this evening prior to presentation.
- Hold pending possible intervention / OR.
- Continue carvedilol - change to BID dosing.
Chronic HFpEF
- Some pitting LE edema - though patient states that weight has been stable. She has been compliant with Lasix dosing.
- Continue current Lasix 40mg BID.
- Follow I/Os, daily weights, etc and adjust dose as needed.
DM-II
- Reportedly diet controlled. Not on an current DM medications.
- Follow glucose and cover with SSI as needed.
- Updated A1C, 6.0 on 08/08/25.
Morbid Obesity due to excess calories
- Affects all aspects of care.
Asthma without Acute Exacerbation
- Continue current inhaled medications.
- Albuterol PRN.
Eczema
Fibromyalgia
Polypharmacy
DVT Prophylaxis: SCDs while Eliquis on hold.
Code Status: Full
[2025-08-12] MEDS: MORPHINE SULFATE 2 MG IV (03:39)
[2025-08-12] MEDS: PULMICORT 0.5 MG INH (07:12)
[2025-08-12 07:47] LABS: Hematocrit 35.1 % (37.0-47.0); Hemoglobin 11.6 g/dL (12.0-16.0); Mean Corp Hgb Conc. 33.0 g/dL (33.0-37.0); Mean Corpuscular Volume 86.5 fL (81.0-99.0); Platelet Count 214 10^3/uL (130-400); Red Cell Dist. Width 13.9 % (11.5-14.5)
[2025-08-12] MEDS: DETROL LA 4 MG PO (07:55)
[2025-08-12] MEDS: OSCAL 500 + D 500 MG PO (07:55)
[2025-08-12] MEDS: MILK OF MAGNESIA 30 ML PO (07:55)
[2025-08-12] MEDS: COREG 25 MG PO ×2 (07:55→20:14)
[2025-08-12] MEDS: PROTONIX 40 MG PO (07:55)
[2025-08-12] MEDS: LASIX 40 MG PO (07:55)
--- NOTE | 2025-08-12 08:21 | VNURNOTE ---
Addendum entered by Anay Koch RN 08/12/25 16:14:
New referral for [facility] placed in [facility].
Original Note:
Chart reviewed. [employer]/last hospitalization, pt had agreed to [facility]. Unfortunately she returned to before [facility] started services. Liaison will watch for final DC plan. She will need a new referral for [facility].
[2025-08-12 08:22] LABS: Blood Urea Nitrogen 11 mg/dl (7-17); Calcium 8.0 mg/dl (8.4-10.2); Carbon Dioxide 33 mmol/L (22-30); Chloride 98 mmol/L (98-107); Estimated Creatinine Clearance 83 ml/min; Glucose 112 mg/dl (70-99); Potassium 3.0 mmol/L (3.5-5.1); Sodium 133 mmol/L (135-145); eGFR > 60.00
[2025-08-12] MEDS: ELIQUIS 5 MG PO ×2 (09:35→20:14)
[2025-08-12] MEDS: MYCOSTATIN ORAL SUSPENSION 5 ML PO ×3 (09:35→21:28)
[2025-08-12] MEDS: LIDOCAINE 4% PATCH 1 PATCH TOPICAL (09:35)
[2025-08-12] MEDS: KCL 40 MEQ PO (12:38)
[2025-08-12] MEDS: ROXICODONE 5 MG PO (12:43)
[2025-08-12] MEDS: COLACE 100 MG PO (12:43)
[2025-08-12 12:53] LABS: ALT (SGPT) 56 U/L (0-35); AST (SGOT) 35 U/L (14-36); Albumin 3.4 g/dl (3.5-5.0); Alkaline Phosphatase 118 U/L (38-126); Total Protein 6.0 g/dl (6.3-8.2)
--- NOTE | 2025-08-12 13:32 | CM ---
CM following re: discharge planning.
Reviewed pt's chart, met with pt.
Pt is a 79 year old female, admitted with OBS status and primary dx of abdominal pain. OBS status reviewed, [facility] letter placed on chart, pt has a copy.
Patient lives with in a 2 with 1 step to enter, uses a rolling walker, wheelchair, has CPAP at Home, as well as Nebulizer via [employer], and current with [facility]. No Inpatient Rehab.
[facility] liaison following
PCP: Kimberly Altman
Pharmacy: [facility]
Patient has transportation Home.
D/C plan: home with resumptions of [facility] and family support. to transport at discharge.
--- NOTE | 2025-08-12 16:01 | CON.HOSP ---
Consultation
-
Date/Time Consultation Requested: 08/12/25 2:10 PM
Date/Time Consultation Performed: 08/12/25 3:30 PM
Requesting Provider: Dr. Devante David
Performing Provider: Dr. Mikel Lucero and Dr. Chadwick Damon
Reason for Consultation: History of atrial fibrillation and diabetes mellitus
Family Physician
-
Family Physician: Crystal Saunders MD
Chief Complaint
-
Abdominal pain
History of Present Illness
A 79-year-old female with a past medical history of morbid obesity, hypertension, GERD and recent laparoscopic cholecystectomy with IOC on 08/10/2025. Patient endorses abdominal pain postsurgery that has not been relieved with Tylenol and tramadol
25 mg. She has associated nausea and vomiting as well. Patient was unable to obtain oxycodone prescription timely so presented to the ER for pain control. No bowel movement since surgery despite taking Colace and fiber at home. Patient denies
fever, chills or any other symptoms.
Medical History
Past Medical History
Past Medical History: Reports Arrhythmia (Atrial fibrillation and atrial flutter) and CHF
Additional Past Medical History:
Morbid obesity
Past Surgical History: Reports Cholecystectomy
Social History
Tobacco: Non-smoker
Alcohol: None
Drug: None
Personal:
Living: With Family
Allergies / Home Medications
Allergies reflects when Allergies were last updated in [employer].
Home Medications with original date entered in [employer]
Allergy/Medication List:
Allergies
Allergy/AdvReac Type Severity Reaction Status Date / Time
adhesive Allergy Skin Verified 08/11/25 19:35
Peeling
aspartame Allergy Severe Verified 08/11/25 19:35
headache
aspirin Allergy GI Verified 08/11/25 19:35
discomfort-
GERD
betamethasone dipropionate Allergy patient Verified 08/11/25 19:35
(From Lotrisone) denies
cefuroxime Allergy Unknown Verified 08/11/25 19:35
celecoxib Allergy Muscle Verified 08/11/25 19:35
Weakness
cinnamon Allergy Severe Verified 08/11/25 19:35
Mouth Sores
ciprofloxacin Allergy Unknown Verified 08/11/25 19:35
clotrimazole (From Lotrisone) Allergy Rash Verified 08/11/25 19:35
dexamethasone Allergy Vision Verified 08/11/25 19:35
Problems
doxycycline Allergy Unknown Verified 01/08/25 08:28
duloxetine (From Cymbalta) Allergy Nausea, Verified 01/08/25 08:28
Headache,
Leg
Cramps,
Back Pain
evolocumab (From Repatha Allergy Diarrhea Verified 01/08/25 08:28
SureClick)
fluconazole Allergy Unknown Verified 01/08/25 08:28
hydrocodone (From Vicodin) Allergy Unknown Verified 01/08/25 08:28
imipramine Allergy Unknown Verified 01/08/25 08:28
ketchup Allergy Vomiting Verified 01/08/25 08:28
latex Allergy Rash Verified 07/09/25 12:35
prednisone Allergy Severe Verified 01/08/25 08:28
anxiety
attack
rofecoxib (From Vioxx) Allergy Muscle Verified 01/08/25 08:28
Weakness
Gnafjyq-ZYA-FgZ Reductase Allergy muscle Verified 01/08/25 08:28
Inhibitor (Lfdwwxw-Vfd-Ndj weakness,
Reductase Inhibitor) GI issue
sulfamethoxazole (From Allergy SOB, Fever Verified 01/08/25 08:28
Bactrim)
trimethoprim (From Bactrim) Allergy SOB, Fever Verified 01/08/25 08:28
cefixime (From Suprax) AdvReac leg Verified 07/09/25 12:04
weakness
ANESTHESIA MEDICATIONS AdvReac sensitive Uncoded 01/08/25 08:28
to anesth,
Heaviness
of limbs
Home Medications
alpha lipoic acid 100 mg capsule 200 mg PO MOTH Supplement 10/13/13
fluticasone propionate 50 mcg/actuation nasal spray,suspension 2 spray intranasal DAILY Congestion 10/13/13
ascorbic acid (vitamin C) 500 mg tablet (Vitamin C) 500 mg PO MOWE Supplement 12/31/22
calcium 500 mg (as carbonate)-vitamin D3 5 mcg (200 unit) tablet (Calcium 500 + D) 1 tab PO DAILY Supplement 12/31/22
cholecalciferol (vitamin D3) 10 mcg (400 unit) tablet (Vitamin D3) 10 mcg PO DAILY Supplement 12/31/22
cholecalciferol (vitamin D3) 25 mcg (1,000 unit) tablet (Vitamin D3) 25 mcg PO DAILY Supplement 12/31/22
cyanocobalamin (vitamin B-12) 500 mcg tablet (Vitamin B-12) 500 mcg PO DAILY Supplement 12/31/22
omeprazole 20 mg capsule,delayed release 20 mg PO DAILY Gastrointestinal issue 12/31/22
pyridoxine (vitamin B6) 100 mg tablet (Vitamin B-6) 100 mg PO TUTHSA Supplement 12/31/22
vibegron 75 mg tablet (Gemtesa) 75 mg PO DAILY Urinary issue 12/31/22
coQ10 (ubiquinol) 100 mg capsule 100 mg PO DAILY Supplement 01/01/23
therapeutic multivitamin 1 tab PO DAILY Supplement 01/01/23
Reclast 1 dose IV [id number] Bisphosphonate Derivative 01/10/24
biotin 10,000 mcg chewable tablet (Hair, Skin and Nails (biotin)) 3,000 mcg PO DAILY Supplement 01/10/24
guaifenesin 600 mg tablet, extended release 12 hr (Mucinex) 600 mg PO [id number] PRN cough 01/10/24
apixaban 5 mg tablet (Eliquis) 5 mg PO BID Blood Clot Prevention/Tx 08/11/24
Held on 08/10/25. Instructions: Resume on 08/11/25.
budesonide 0.5 mg/2 mL suspension for nebulization 0.5 mg inhalation R DAILY Lung/Breathing Issues 09/24/24
famotidine 40 mg tablet 40 mg PO HSPRN PRN gerd 09/24/24
albuterol sulfate 90 mcg/actuation aerosol inhaler 2 puff inhalation PRN PRN SOB 12/24/24
cod liver oil 1 cap PO .3X PER WK Supplement 12/24/24
fluoride (sodium) 1.1 % dental paste 1 applic dental BID TEETH 12/24/24
furosemide 40 mg tablet 40 mg PO BID AT 0800,1600 Fluid Retention/Swelling 12/24/24
hydrocortisone 1 % topical cream 1 applic topical PRN PRN Rash, itching 12/24/24
ketoconazole 2 % topical cream 1 applic topical PRN PRN Rash 12/24/24
lidocaine 4 % topical patch (Lidocaine Pain Relief) 1 patch topical DAILY Pain 12/24/24
mometasone 0.1 % topical cream 1 applic topical DAILY PRN to ears 12/24/24
nystatin 100,000 unit/mL oral suspension 5 ml PO TID ANTIFUNGAL 12/24/24
nystatin-triamcinolone 100,000 unit/g-0.1 % topical cream 1 applic topical DAILY PRN rash 12/24/24
psyllium 625 mg PO DAILY Constipation 12/24/24
colesevelam 625 mg tablet (WelChol) 625 mg PO BID High Cholesterol 07/09/25
carvedilol 12.5 mg tablet 25 mg PO BID Blood Pressure 08/08/25
oxycodone 5 mg tablet 5 mg PO Q4HPRN PRN breakthrough/severe pain #10 tabs 08/11/25
Oscal 1 tab PO DAILY 08/12/25
omega-3 acid ethyl esters 1 gram capsule (Lovaza) 1 cap PO DAILY 08/12/25
tramadol 25 mg tablet 25 mg PO Q6H PRN PAIN 08/12/25
Review of Systems
-
History Source: Patient
Constitutional: Reports No Symptoms
EENT: Reports No Symptoms
Abdomen/GI: Reports Abdominal Pain, Nausea and Vomiting
: Reports No Symptoms
Musculoskeletal: Reports No Symptoms
Skin: Reports No Symptoms
Neurological: Reports No Symptoms
Endocrine: Reports No Symptoms
Hematologic/Lymphatic: Reports No Symptoms
Physical Exam
Vital Signs
Vital Signs
Temp Pulse Resp BP Pulse Ox
98.2 F 108 16 106/62 94
08/12/25 15:05 08/12/25 15:05 08/12/25 15:05 08/12/25 15:05 08/12/25 15:05
Physical Exam
General: Well Developed, Well Nourished, No Apparent Distress and Comfortable
HEENT: Normocephalic, Anicteric and Moist Mucous Membranes
Respiratory: Clear
Cardiac: S1/S2 and Regular Rhythm
GI: Soft, Tender (RUQ) and Other (incisions clean/dry/intact)
Musculoskeletal: No Clubbing, No Cyanosis and Edema
Skin: Warm
Neuro: Awake and AO x 3
Psych: Calm and Intact Judgement
Laboratory Results
-
Laboratory Results
08/12/25 07:04
08/12/25 07:04
Total Bilirubin Cancelled 08/12/25 12:17
AST Cancelled 08/12/25 12:17
ALT Cancelled 08/12/25 12:17
Alkaline Phosphatase Cancelled 08/12/25 12:17
Lipase 128 U/L (23-300) 08/11/25 19:43
Data Reviewed
-
Lab Data: Labs Reviewed, Discussed with Physician and Discussed with Patient
Old Records: Reviewed
Impression / Plan
-
IMPRESSION:
A 79-year-old female with a past medical history of morbid obesity, hypertension, GERD, paroxysmal atrial fibrillation on Eliquis and Coreg and diet-controlled diabetes mellitus presenting with postoperative abdominal pain with associated nausea
vomiting and constipation following laparoscopic cholecystectomy on 08/10/2025. Symptoms are likely related to postoperative pain due to the inability to obtain oxycodone prescription after getting discharged. No signs of infection at this time.
PLAN:
# Postoperative abdominal pain
# Laparoscopic cholecystectomy with IOC on 08/27/2025
Management per general surgery team
# Constipation
No bowel movement since surgery 08/10/25
Bowel regimen
# History of Paroxysmal atrial fibrillation, atrial flutter
Continue Coreg 25 mg daily
Continue Eliquis 5 mg PO daily
currently NSR, continue to monitor
# Type 2 diabetes mellitus
Most recent 08/08/25 HbA1c 6%
Diet controlled
Insulin sliding scale-low
# Hypokalemia
# Hyponatremia
K 3.0 on 08/12/2025, repleted with 40 mEq
Na 133, improved from 131 08/11/25.
Trend BMP
# Chronic HFpEF
Echo 09/29/24: LVEF 74%
Continue Lasix 40 mg twice daily with hold parameters
[2025-08-12] MEDS: LASIX PO (16:24)
[2025-08-12 16:47] LABS: Glucose - Point of Care 129 mg/dl (70-99)
[2025-08-12] MEDS: REMOVE LIDOCAINE PATCH 1 PATCH REMOVE (20:18)
[2025-08-12 21:14] LABS: Glucose - Point of Care 145 mg/dl (70-99)
[2025-08-13 06:00] VITALS: BMI 53.9
[2025-08-13 06:23] LABS: Hematocrit 34.0 % (37.0-47.0); Hemoglobin 11.4 g/dL (12.0-16.0); Mean Corp Hgb Conc. 33.5 g/dL (33.0-37.0); Mean Corpuscular Volume 86.1 fL (81.0-99.0); Platelet Count 190 10^3/uL (130-400); Red Cell Dist. Width 13.9 % (11.5-14.5)
[2025-08-13 07:04] LABS: ALT (SGPT) 41 U/L (0-35); AST (SGOT) 27 U/L (14-36); Albumin 3.1 g/dl (3.5-5.0); Alkaline Phosphatase 103 U/L (38-126); Blood Urea Nitrogen 13 mg/dl (7-17); Calcium 8.1 mg/dl (8.4-10.2); Carbon Dioxide 31 mmol/L (22-30); Chloride 100 mmol/L (98-107); Estimated Creatinine Clearance 73 ml/min; Glucose 89 mg/dl (70-99); Potassium 3.5 mmol/L (3.5-5.1); Sodium 135 mmol/L (135-145); Total Protein 5.8 g/dl (6.3-8.2); eGFR > 60.00
--- NOTE | 2025-08-13 07:24 | W.PN.HOSP.TC ---
Today's Communication/Plan
-
Bowel regimen
Trend BMP
Pain control
Assessment / Plan
Assessment / Plan
ASSESSMENT:
A 79-year-old female with a past medical history of morbid obesity, hypertension, GERD, paroxysmal atrial fibrillation on Eliquis and Coreg and diet-controlled diabetes mellitus presenting with postoperative abdominal pain with associated nausea
vomiting and constipation following laparoscopic cholecystectomy on 08/10/2025.� Symptoms are likely related to postoperative pain due to the inability to obtain oxycodone prescription after getting discharged.� No signs of infection at this time.
PLAN:
# Postoperative abdominal pain
# Laparoscopic cholecystectomy with IOC on 08/27/2025
Management per general surgery team
Patient expresses improvement in abdominal pain 08/13/25
# Constipation
No bowel movement since surgery 08/10/25, but is passing gas
Bowel regimen
# History of Paroxysmal atrial fibrillation, atrial flutter
Continue Coreg 25 mg daily
Continue Eliquis 5 mg PO daily
Currently NSR, continue to monitor
# Type 2 diabetes mellitus
Most recent 08/08/25 HbA1c 6%
Diet controlled
Glucose 89 today 08/13/25
Insulin sliding scale-low
# Hypokalemia
# Hyponatremia
K 3.0 on 08/12/2025, repleted with 40 mEq, K 3.5 today 08/13/25
Na 133, improved from 131 08/11/25.
Trend BMP
# Chronic HFpEF
Echo 09/29/24: LVEF 74%
Continue Lasix 40 mg twice daily with hold parameters
Anticipated Discharge: Within 24 hours
Subjective/Interval History
-
Date of Service: August 13, 2025
Patient evaluated at bedside today. She states her abdominal pain has improved but still present. No new symptoms.
Objective Data
-
Labs:
Laboratory Results
08/13/25
05:54
WBC 10.0
Hgb 11.4 L
Hct 34.0 L
Plt Count 190
Sodium 135
Potassium 3.5
Chloride 100
Carbon Dioxide 31 H
BUN 13
Creatinine 0.9
Glucose 89
Calcium 8.1 L
Total Bilirubin 0.7
AST 27
ALT 41 H
Alkaline Phosphatase 103
Vital Signs:
Vital Signs
Temp Pulse Resp BP Pulse Ox
98.0 F 72 18 121/71 100
08/12/25 23:11 08/12/25 23:11 08/12/25 23:11 08/12/25 23:11 08/12/25 23:11
I&O
08/12/25 08/13/25 08/14/25
06:59 06:59 06:59
Intake Total 240 / 240
Balance 240 / 240
Review of Systems
-
History Source: Patient
Constitutional: Reports No Symptoms
EENT: Reports No Symptoms Reported
Respiratory: Reports No Symptoms
Cardiac: Reports No Symptoms
Abdomen/GI: Reports Abdominal Pain
Breast: Reports No Symptoms
Genitourinary: Reports No Symptoms
Musculoskeletal: Reports No Symptoms
Skin: Reports No Symptoms
Neuro: Reports No Symptoms
Endocrine: Reports No Symptoms
Hematologic / Lymphatic: Reports No Symptoms
Allergy / Immunology: Reports No Symptoms
Physical Exam
-
General: Well Developed, Well Nourished, No Apparent Distress, Comfortable, Conversant and Morbidly Obese
HEENT: Normocephalic, Atraumatic, Moist Mucous Membranes and Anicteric
Respiratory: Clear to Auscultation
Cardiac: Regular Rhythm and S1/S2
GI: Soft, Nondistended, Normal Bowel Sounds and Tender (RUQ)
Musculoskeletal: No Clubbing, No Cyanosis, Edema, Right Lower Extrem and Edema, Left Lower Extrem
Skin: Warm
Neuro: Awake, AO x 3 and Nonfocal/Grossly Intact
Psych: Calm and Intact Judgement/Insight
Data Reviewed
-
Labs: Labs Reviewed by me, Discussed with Physician and Discussed with Patient
Old Records: Reviewed
--- NOTE | 2025-08-13 07:31 | W.PN.GS2 ---
Today's Communication / Plan
-
-- DC today on bowel regimen
Assessment / Plan
-
Patient is a 79 yo F POD#4 s/p laparoscopic cholecystectomy with IOC
AVSS
Labs notable for normal WBC, stable Hb, normal electrolytes and renal function, normal bilirubin, downtrending AST and ALT and ALP
Recovering well. Readmitted for pain control.
-- Low fat CC diet
-- Pain control: Tylenol, Toradol, Oxycodone
-- Bowle regimen: Miralax, milk of mag
-- Home meds
-- DVT: Eliquis
-- DC today
Subjective Data
-
Date of Service: August 13, 2025
No complaints, feels improved. Pain well-controlled. No nausea or vomiting. Passing flatus, no BM. Voiding. Ambulating.
Objective Data
-
Intake and Output
08/12/25 08/13/25 08/14/25
06:59 06:59 06:59
Intake Total 240 / 240
Balance 240 / 240
Intake:
Oral fluids 240 / 240
Other:
Number of approximated MODERATE 1 1
amounts of urine
Vital Signs
Temp Pulse Resp BP Pulse Ox
98.0 F 72 18 121/71 100
08/12/25 23:11 08/12/25 23:11 08/12/25 23:11 08/12/25 23:11 08/12/25 23:11
Lab Results
08/13/25 05:54
08/13/25 05:54
Calcium 8.1 mg/dl (8.4-10.2) L 08/13/25 05:54
Total Bilirubin 0.7 mg/dl (0.2-1.3) 08/13/25 05:54
Direct Bilirubin Cancelled 08/12/25 12:17
AST 27 U/L (14-36) 08/13/25 05:54
ALT 41 U/L (0-35) H 08/13/25 05:54
Alkaline Phosphatase 103 U/L (38-126) 08/13/25 05:54
Total Protein 5.8 g/dl (6.3-8.2) L 08/13/25 05:54
Albumin 3.1 g/dl (3.5-5.0) L 08/13/25 05:54
Physical Exam
-
Gen: NAD
Abd: soft, NT, obese, non-peritoneal, incisions c/d/i - no erythema, ecchymosis or drainage
Patient has a clinton catheter: No
Patient has a central line: No
[2025-08-13] MEDS: PULMICORT 0.5 MG INH (07:58)
[2025-08-13 08:12] LABS: Glucose - Point of Care 90 mg/dl (70-99)
[2025-08-13 08:40] VITALS: BP 109/68
[2025-08-13] MEDS: MYCOSTATIN ORAL SUSPENSION 5 ML PO (08:44)
[2025-08-13] MEDS: LASIX 40 MG PO (08:44)
[2025-08-13] MEDS: MILK OF MAGNESIA 30 ML PO (08:44)
[2025-08-13] MEDS: OSCAL 500 + D 500 MG PO (08:44)
[2025-08-13] MEDS: MIRALAX 17 GRAMS PO (08:45)
[2025-08-13] MEDS: LIDOCAINE 4% PATCH 1 PATCH TOPICAL (08:45)
[2025-08-13] MEDS: ELIQUIS 5 MG PO (08:47)
[2025-08-13] MEDS: DETROL LA 4 MG PO (08:47)
[2025-08-13] MEDS: PROTONIX 40 MG PO (08:47)
[2025-08-13] MEDS: COREG 25 MG PO (08:47)
[2025-08-13] MEDS: TYLENOL 650 MG PO (08:53)
[2025-08-13 11:23] VITALS: BP 114/68; BP 99/55
[2025-08-13 11:56] VITALS: BP 114/68; BP 99/55
[2025-08-13 11:58] LABS: Glucose - Point of Care 141 mg/dl (70-99)
--- NOTE | 2025-08-13 13:02 | CM ---
CM following re: discharge planning.
Reviewed pt's chart, met with pt. Pt's and sister in law at bedside.
Discharge order noted. Both pt and her family are aware and sister in law stated she will transport pt home. Pt still OBS status.
[facility] liaison following.
Please fax discharge instructions to [facility] at [phone].
D/C plan: home with [facility] and family support. Sister in law to transport.
== END 2025-08-13 14:25 | disposition home health service (06) ==
LOC: 2 SOUTH 01:48
PROVIDERS: Emergency Medicine; Nurse Practitioner Family; Surgery; ADMITTING PHYSICIAN Surgery; CONSULT PHYSICIAN Internal Medicine; EMERGENCY PHYSICIAN Emergency Medicine; FAMILY PHYSICIAN Emergency Medicine
DX: G89.18 Other acute postprocedural pain (principal); R10.9 Unspecified abdominal pain; K43.9 Ventral hernia without obstruction or gangrene; K59.00 Constipation, unspecified; I48.0 Paroxysmal atrial fibrillation; I48.92 Unspecified atrial flutter; I50.32 Chronic diastolic (congestive) heart failure; E87.1 Hypo-osmolality and hyponatremia; E87.6 Hypokalemia; N28.9 Disorder of kidney and ureter, unspecified; E11.29 Type 2 diabetes mellitus with other diabetic kidney complication; E66.01 Morbid (severe) obesity due to excess calories; Z68.43 Body mass index [BMI] 50.0-59.9, adult; E87.8 Other disorders of electrolyte and fluid balance, not elsewhere classified; I11.0 Hypertensive heart disease with heart failure; L30.9 Dermatitis, unspecified; M79.3 Panniculitis, unspecified; M79.7 Fibromyalgia; Z79.01 Long term (current) use of anticoagulants; Z79.899 Other long term (current) drug therapy
CPT/HCPCS: 74177; 80053; 82248; 82962; 83690; 85025; 85027; 93005; 94640; 96374; 96375; 97116; 97162; 97166; 99285; G0378; Q9967

== ENCOUNTER → 2025-08-24 16:20 | Outpatient (REF) | payer MEDICARE, BC, SELFPAY ==
[2025-08-24 17:30] LABS: Hematocrit 36.5 % (37.0-47.0); Hemoglobin 11.4 g/dL (12.0-16.0); Mean Corp Hgb Conc. 31.2 g/dL (33.0-37.0); Mean Corpuscular Volume 88.2 fL (81.0-99.0); Nucleated Red Blood Cells % 0 %; Platelet Count 306 10^3/uL (130-400); Red Cell Dist. Width 13.9 % (11.5-14.5)
[2025-08-24 17:38] LABS: ALT (SGPT) 26 U/L (0-35); AST (SGOT) 30 U/L (14-36); Albumin 3.9 g/dl (3.5-5.0); Alkaline Phosphatase 126 U/L (38-126); Blood Urea Nitrogen 11 mg/dl (7-17); Calcium 9.2 mg/dl (8.4-10.2); Carbon Dioxide 33 mmol/L (22-30); Chloride 101 mmol/L (98-107); Glucose 95 mg/dl (70-99); Potassium 4.9 mmol/L (3.5-5.1); Sodium 138 mmol/L (135-145); Total Protein 6.8 g/dl (6.3-8.2); eGFR > 60.00
== END ==
LOC: CLAB 16:20
PROVIDERS: ATTENDING PHYSICIAN Family Medicine
DX: E11.69 Type 2 diabetes mellitus with other specified complication (principal); Z90.49 Acquired absence of other specified parts of digestive tract
CPT/HCPCS: 36415; 80053; 85025